=== PATIENT | male | born 1985 | race African-American/Black ===

== ENCOUNTER 2022-01-06 13:08 | Inpatient (IN) | payer BC, OTHER ==
[2022-01-06 22:41] LABS: Basophils # (A) 0.1 k/uL (0-0.2); Basophils % (A) 1 %; Eosinophils # (A) 0.2 k/uL (0-0.7); Eosinophils % (A) 1 %; HCT 51.6 % (39.0-53.0); HGB 16.4 gm/dL (13.0-17.5); Lymphocytes # (A) 3.4 k/uL (1.0-4.8); Lymphocytes % (A) 25 %; MCH 30.9 pg (25.0-35.0); MCHC 31.8 g/dL (31.0-37.0); MCV 97.4 fL (80.0-100.0); Mean Platelet Volume 9.9; Monocytes # (A) 0.7 k/uL (0-1.0); Monocytes % (A) 5 %; Neutrophils # (A) 9.3 k/uL (1.3-7.7); Neutrophils % (A) 67 %; Platelet Count 214 k/uL (150-450); RDW 13.9 % (11.5-15.5); WBC 13.9 k/uL (3.8-10.6)
[2022-01-06 22:47] LABS: Appearance,Urine Clear (Clear); Bilirubin,Urine Negative (Negative); Blood,Urine Negative (Negative); Color,Urine Light Yellow; Glucose,Urine (UA) Negative (Negative); Hyaline Casts,Urine 1 /lpf (0-2); Ketones,Urine 2+ (Negative); Leukocyte Esterase,Urine Negative (Negative); Mucus,Urine Rare /hpf; Nitrite,Urine Negative (Negative); Protein,Urine Trace (Negative); Specific Gravity,Urine 1.007 (1.001-1.035); Urobilinogen,Urine <2.0 mg/dL (<2.0); WBC,Urine 1 /hpf (0-5)
[2022-01-06 22:48] LABS: Amphetamine Screen,Urine Not Detected (NotDetected); Barbiturate Screen,Urine Not Detected (NotDetected); Benzodiazepines Screen,Urine Not Detected (NotDetected); Cocaine Screen,Urine Not Detected (NotDetected); Methadone Screen, Urine Not Detected (NotDetected); Opiate Screen,Urine Not Detected (NotDetected); Oxycodone Screen, Urine Not Detected (NotDetected); Phencyclidine Screen,Urine Not Detected (NotDetected); Tricyclic Antidepressant,Urine Not Detected (NotDetected); Urn Cannabinoid Scrn Detected (NotDetected)
[2022-01-07 00:31] LABS: ALT 23 U/L (4-49); AST 50 U/L (17-59); Acetaminophen <10.0 ug/mL; African American GFR (CKD) >90 (>60 ml/min/1.73 sqM); Albumin/Globulin Ratio 1.9; Alkaline Phosphatase 106 U/L (38-126); Anion Gap 26 mmol/L; Blood Urea Nitrogen 13 mg/dL (9-20); Calcium 9.6 mg/dL (8.4-10.2); Carbon Dioxide 12 mmol/L (22-30); Chloride 100 mmol/L (98-107); Globulin 2.6 g/dL; Glucose 105 mg/dL (74-99); Non-African American GFR(CKD) >90 (>60 ml/min/1.73 sqM); Potassium 3.6 mmol/L (3.5-5.1); Salicylate <1.0 mg/dL; Sodium 138 mmol/L (137-145); Total Bilirubin 1.1 mg/dL (0.2-1.3); Total Protein 7.6 g/dL (6.3-8.2)
[2022-01-07 00:36] LABS: Alcohol 309 mg/dL
[2022-01-07 10:27] LABS: Basophils # (A) 0.05 X 10*3/uL (0.00-0.10); Basophils % (A) 0.7 %; Eosinophils # (A) 0.12 X 10*3/uL (0.04-0.35); Eosinophils % (A) 1.7 %; HCT 46.6 % (39.6-50.0); HGB 15.5 g/dL (13.0-17.0); Immature Grans, Automated 0.4 %; Lymphocytes # (A) 1.82 X 10*3/uL (0.90-5.00); Lymphocytes % (A) 25.2 %; MCH 30.1 pg (27.0-32.0); MCHC 33.3 g/dL (32.0-37.0); MCV 90.5 fL (80.0-97.0); Monocytes # (A) 0.84 X 10*3/uL (0.20-1.00); Monocytes % (A) 11.6 %; NRBC Per 100 WBC 0 /100 WBCS (0.0-0.0); Neutrophils # (A) 4.36 X 10*3/uL (1.80-7.70); Neutrophils % (A) 60.4 %; Platelet Count 184 X 10*3/uL (140-440); RBC 5.15 X 10*6/uL (4.40-5.60); RDW 13.7 % (11.5-14.5); WBC 7.22 X 10*3/uL (4.50-10.00)
[2022-01-07 10:53] LABS: African American GFR (CKD) 131.1 (60.0-200.0); Albumin 4.7 g/dL (3.8-4.9); Albumin/Globulin Ratio 2.13 (1.60-3.17); Anion Gap 12.7 mmol/L (10.00-18.00); BUN/Creat Ratio 13.68 Ratio (12.00-20.00); Carbon Dioxide 22.9 mmol/L (20.0-27.5); Globulin 2.2 g/dL (1.6-3.3); Non-African American GFR(CKD) 113.1 (60.0-200.0); Potassium 4.7 mmol/L (3.5-5.5); Total Protein 6.8 g/dL (6.2-8.2)
[2022-01-07] MEDS ORDERED: LORazepam 2 MG/ML INJ IV PRN ×3 (14:17)
--- NOTE | 2022-01-07 14:32 | P.CN ---
Psychiatric Consult - . Consult date: 01/07/22 Consult:: 01/07/22 14:26 IDENTIFYING DATA: This patient is a 36-year-old -[place] male who currently lives with his and 2 stepchildren, they live in a duplex and he works for a [employer]. REASON FOR REFERRAL: Psychiatry was consulted for alcohol use and suicide attempt by overdose HISTORY OF PRESENT ILLNESS: The patient presented to the hospital today for alcohol intoxication with a blood alcohol level of 309 and also after a suicide attempt after an overdose on his medications. Patient's UDS was positive for THC. Patient was seen resting in his bed and agreeable to speak to public relations writer. He claims that he is feeling "sore" and appeared to be somewhat groggy. He claims that he took some of my pills" and claims that they were BuSpar. He states that he was taking them as he was recently prescribed some Walter was making him feel "loopy". He states that he called in sick to work causes of this feeling. He states that he has been feeling depressed lately which has been increasing. He states that he overdosed on approximately 80 pills in a suicide attempt which he admits to. He states that he has been trying to speak with his and family about his depression however "they don't listen". He states that he has been dealing with alcohol use claims that he got out of rehab in May and was in [place] and then came back to [place] and states that he relapsed after 1 month on alcohol. He states that he drinks about 3-4 beers a day, several shots of liquor. He claims that his last drink was yesterday. He states that he does have a history of withdrawals including tremors however denies any seizures or DTs. He states that he does have poor sleep fair appetite. He claims that he is still having some suicidal thoughts however no intent or plan . At this time patient denies any homical ideations, intent or plan. Patient denies any auditory, visual hallucinations and denies any paranoia or delusions. Patients admits to using marijuana and cigarettes daily. PAST PSYCHIATRIC HISTORY: Patient has a a history of anxiety depression and alcohol use. He claims that he was on BuSpar which was recently prescribed to him by his PCP. Patient denies any previous psychiatric hospitalizations. Patient denies any psychiatric outpatient follow-up. He states that he overdosed once in the past on medications. PAST MEDICAL HISTORY: Claims that he does have diabetes type 2.. ALLERGIES: as per EMR. CHEMICAL DEPENDENCY HISTORY: as per HPI. FAMILY PSYCHIATRIC/SUBSTANCE USE HISTORY: States that there is significant mental health issues in his family on his mother's side. SOCIAL HISTORY: Patient was born and raised in [place] however has been living in [place] for the past 20 years. He states that he completed high school. He claims that he has no kids, currently to his and lives in a house with them and HER-2 children. He states that he works for a [employer]. He denies ever going to custodial or senior care. MENTAL STATUS EXAM: General Appearance: Patient appears to be thin, stated age is alert, directable yet is vague. Patient appears to have fair hygiene and grooming wearing hospital gown with poor eye contact. Behavior: Patient is calmly lying in bed without any agitated behavior. Vague, evasive Speech: Patient's speech is fluent and nonpressured. Monotone and concrete Mood/Affect: Patient reports their mood is "depressed", affect is congruent Suicidality/Homicidality: Patient denies having any suicidal or homicidal ideation intent or plan. Perceptions: Patient denies any visual hallucinations and denies any auditory hallucinations Though content/process: There is no evidence of any delusional thought content and thought process is linear and goal-directed. [place]. Memory and concentration: AOX3, grossly intact for the purposes of this session. Can spell "WORLD" backwards Judgment and insight: poor IMPRESSIONS: Major depressive disorder, without psychotic features Alcohol use disorder Overdose on medications Cannabis use disorder Nicotine dependence PLAN: -At this time patient DOES meet criteria for inpatient psychiatric admission. -Would recommend the following medication changes/additions: Librium 25 mg 3 t imes a day scheduled for alcohol withdrawal. -CIWA protocol with PRN Ativan for alcohol withdrawal. Continue to monitor vital signs. -Continue 1:1 sitter for safety until patient is transferred to the mental health unit. -Cannot leave AMA at this time. Patient will need a petition and certification if attempting to leave AMA. -pressroom worker to provide patient with outpatient mental health/psychiatry resources for appropriate follow up upon discharge -When medically stable, patient is eligible for transfer to a psych bed when available. -Communicated plan to patient's nurse -Psychiatry will sign off at this time -Please contact with any questions.
[2022-01-07] MEDS: NICOTINE 21MG/24HR PATCH TRANSDERM SCH (15:01)
[2022-01-07] MEDS: chlordiazePOXIDE 25 MG CAP PO SCH ×2 (15:02→21:40)
[2022-01-07] MEDS ORDERED: LORazepam 1 MG/0.5 ML VIAL IV PRN ×3 (18:13→18:14)
--- NOTE | 2022-01-07 22:25 | P.HPIM ---
History of Present Illness H&P Date: 01/06/22 Chief Complaint: Acute drug overdose Patient is a 36-year-old male with a known history of hypertension, depression and daily alcohol use and smoking presented to ER due to alcohol intoxication and suicide attempt. Patient states that he took a full bottle of his medications include buspirone and trazodone. Patient states that he lost his job and is also upset with his and 2 tablets to kill himself. Patient had prior history of alcohol withdrawal symptoms and was admitted to the hospital.. Otherwise denied any complaints of nausea or vomiting. Mild epigastric discomfort. No complaints of diarrhea or constipation. No chest pain or shortness of breath. No headache or dizziness or lightheadedness. Denied any recent travel or sick contacts. Patient states that he was in the alcohol rehab program previously Few months ago. Laboratory data showed WC 13.9 hemoglobin 16.4 and platelets 214 Sodium 138 potassium 3.6 chloride 100 bicarb is 12 BUN 13 and creatinine 0.7 and blood sugar is 105 Urinalysis is negative for infection UDS is positive for marijuana and a serum alcohol level is 309 on admission Review of Systems Constitutional: Patient denies any fever or chills . no Generalized weakness. Abdomen: Patient denied any nausea or vomiting or abd. pain Cardiovascular: Patient denies any chest pain or short of breath no pal pitations. Respiratory: patient denied any cough is from production. No shortness of breath Neurologic: Patient denied any numbness or tingling headache. Musculoskeletal: Patient denies any complaints of joint swelling or deformity. Skin: Negative Psychiatric: Negative Endocrine: No heat or cold intolerance. No recent weight gain. Genitourinary: No dysuria or hematuria. All other 14 point ROS negative except the above Past Medical History Additional Past Medical History / Comment(s): pancreatitis History of Any Multi-Drug Resistant Organisms: None Reported Past Surgical History: No Surgical Hx Reported Past Psychological History: No Psychological Hx Reported Past Alcohol Use History: Daily Past Drug Use History: None Reported - Past Family History Father Family Medical History: Hypertension Medications and Allergies Home Medications Medication Instructions Recorded Confirmed Type amLODIPine [Norvasc] 5 mg PO DAILY 01/06/22 01/06/22 History busPIRone HCl [Buspar] 5 - 10 mg PO Q8H PRN 01/06/22 01/06/22 History metFORMIN HCL 500 mg PO BID 01/06/22 01/06/22 History traZODone HCL [Desyrel] 50 - 100 mg PO HS PRN 01/06/22 01/06/22 History Allergies Allergy/AdvReac Type Severity Reaction Status Date / Time No Known Allergies Allergy Verified 01/07/22 07:10 Physical Exam Vitals: Vital Signs Temp Pulse Resp BP Pulse Ox 01/06/22 21:57 98.1 F 104 H 15 137/88 97 PHYSICAL EXAMINATION: Patient is lying in the bed comfortably, no acute distress, awake alert and oriented.. HEENT: Normocephalic. Neck is supple. Pupils reactive. Nostrils clear. Oral cavity is moist. Neck reveals no JVD, carotid bruits, or thyromegaly. CHEST EXAMINATION: Trachea is central. Symmetrical expansion. Lung dai clear to auscultation and percussion. CARDIAC: Normal S1, S2 with no gallops. No murmurs ABDOMEN: Soft. Bowel sounds present. Nontender. No organomegaly. No abdominal bruits. Extremities: reveal no edema. No clubbing or cyanosis Neurologically awake, alert, oriented x3 with well-coordinated movements. No focal deficits noted Skin: No rash or skin lesions. Psychiatric: Coperative. Nonsuicidal, Musculoskeletal: No joint swelling or deformity. Normal range of motion. Results CBC & Chem 7: 01/07/22 06:19 01/07/22 06:19 Labs: Abnormal Lab Results - Last 24 Hours (Table) 01/06/22 01/06/22 Range/Units 14:30 14:30 WBC 13.9 H (3.8-10.6) k/uL Neutrophils # 9.3 H (1.3-7.7) k/uL Urine Protein Trace H (Negative) Urine Ketones 2+ H (Negative) Urine Mucus Rare H (None) /hpf U Marijuana (THC) Screen Detected H (NotDetected) Thrombosis Risk Factor Assmnt - DVT/VTE Prophylaxis DVT/VTE Prophylaxis: Pharmacologic Prophylaxis ordered Assessment and Plan Assessment: Acute suicidal attempt with overdose. Patient took a full bottle of buspirone and trazodone at home. Acute alcohol intoxication on admission Major depression Hypertension Severe alcohol abuse on daily basis History of marijuana use and ongoing nicotine addiction GI and DVT prophylaxis Plan: Patient will be continued on alcohol withdrawal protocol and IV hydration with normal saline. Continue with GI and DVT prophylaxis and monitor symptomatically. Psychiatry was consulted. Continue with one-to-one sitter and patient cannot leave AMA. Time with Patient: Greater than 30
--- NOTE | 2022-01-07 22:27 | P.PN ---
Subjective Progress Note Date: 01/07/22 Patient is a 36-year-old male with a known history of hypertension, depression and daily alcohol use and smoking presented to ER due to alcohol intoxication and suicide attempt. Patient states that he took a full bottle of his medications include buspirone and trazodone. Patient states that he lost his job and is also upset with his and 2 tablets to kill himself. Patient had prior history of alcohol withdrawal symptoms and was admitted to the hospital.. Otherwise denied any complaints of nausea or vomiting. Mild epigastric discomfort. No complaints of diarrhea or constipation. No chest pain or shortness of breath. No headache or dizziness or lightheadedness. Denied any recent travel or sick contacts. Patient states that he was in the alcohol rehab program previously Few months ago. Laboratory data showed WC 13.9 hemoglobin 16.4 and platelets 214 Sodium 138 potassium 3.6 chloride 100 bicarb is 12 BUN 13 and creatinine 0.7 and blood sugar is 105 Urinalysis is negative for infection UDS is positive for marijuana and a serum alcohol level is 309 on admission 01/07/2022 Patient is currently lying in the bed. Awake alert and oriented. Denied any suicidal ideation or homicidal ideation. No complaints of chest pain or shortness of breath. Does have some epigastric discomfort. Able to tolerate oral diet and did have a bowel meant. No cough or sputum production. Patient was seen by psychiatry and recommended inpatient psychiatric admission. Patient is being continued on alcohol withdrawal protocol and was started on Librium. Laboratory data showed WBC improved to 7.22 hemoglobin 15.5, platelets 194 Sodium 140 potassium 4.7 chloride 105 bicarb is 22.9 BUN 11 creatinine 0.8 and blood sugar is 112 AST 39 ALT 23 and alk phos 90. Current medications reviewed. Objective - Vital Signs Vital signs: Vital Signs Temp 98.1 F 01/06/22 21:57 Pulse 88 01/07/22 06:45 Resp 15 01/07/22 06:45 BP 134/76 01/07/22 06:45 Pulse Ox 97 01/07/22 06:45 FiO2 Intake & Output 01/06/22 01/07/22 01/07/22 18:59 06:59 18:59 Weight 68.039 kg - Exam PHYSICAL EXAMINATION: Patient is lying in the bed comfortably, no acute distress, awake alert and orie nted.. HEENT: Normocephalic. Neck is supple. Pupils reactive. Nostrils clear. Oral cavity is moist. Neck reveals no JVD, carotid bruits, or thyromegaly. CHEST EXAMINATION: Trachea is central. Symmetrical expansion. Lung dai clear to auscultation and percussion. CARDIAC: Normal S1, S2 with no gallops. No murmurs ABDOMEN: Soft. Bowel sounds present. Nontender. No organomegaly. No abdominal bruits. Extremities: reveal no edema. No clubbing or cyanosis Neurologically awake, alert, oriented x3 with well-coordinated movements. No focal deficits noted Skin: No rash or skin lesions. Psychiatric: Coperative. Nonsuicidal, Musculoskeletal: No joint swelling or deformity. Normal range of motion. - Labs CBC & Chem 7: 01/07/22 06:19 01/07/22 06:19 Labs: Abnormal Lab Results - Last 24 Hours (Table) 01/06/22 01/06/22 01/06/22 Range/Units 14:30 14:30 14:30 WBC 13.9 H (3.8-10.6) k/uL Neutrophils # 9.3 H (1.3-7.7) k/uL Carbon Dioxide 12 L (22-30) mmol/L Glucose 105 H (74-99) mg/dL AST (14-35) U/L Urine Protein Trace H (Negative) Urine Ketones 2+ H (Negative) Urine Mucus Rare H (None) /hpf U Marijuana (THC) Screen Detected H (NotDetected) Serum Alcohol 309 H* mg/dL 01/07/22 Range/Units 06:19 WBC (3.8-10.6) k/uL Neutrophils # (1.3-7.7) k/uL Carbon Dioxide (22-30) mmol/L Glucose 112 H (74-99) mg/dL AST 39 H (14-35) U/L Urine Protein (Negative) Urine Ketones (Negative) Urine Mucus (None) /hpf U Marijuana (THC) Screen (NotDetected) Serum Alcohol mg/dL Assessment and Plan Assessment: Acute suicidal attempt with overdose. Patient took a full bottle of buspirone and trazodone at home. Acute alcohol intoxication on admission Major depression Hypertension Severe alcohol abuse on daily basis History of marijuana use and ongoing nicotine addiction GI and DVT prophylaxis Plan: Patient will be continued on alcohol withdrawal protocol and IV hydration with normal saline. Continue with GI and DVT prophylaxis and monitor sym ptomatically. Psychiatry has seen the patient and recommended inpatient psychiatric admission.. Continue with one-to-one sitter and patient cannot leave AMA. Patient is medically stable at this time. Time with Patient: Greater than 30
[2022-01-07] MEDS ORDERED: SODIUM CHLORIDE 0.9% 1,000 ML IV SCH (22:30)
[2022-01-07] MEDS: HEPARIN SODIUM,PORCINE/PF 5,000 UNIT/0.5 ML SYRINGE SQ SCH (23:59)
[2022-01-08] MEDS: FAMOTIDINE 20 MG TAB PO SCH ×2 (00:01→08:41)
[2022-01-08] MEDS ORDERED: BENZOCAINE/MENTHOL LOZENG 1 EACH LOZENGE MUCOUS MEM PRN (00:17)
[2022-01-08] MEDS ORDERED: ACETAMINOPHEN TAB 325 MG TAB PO PRN (00:20)
[2022-01-08] MEDS: HEPARIN SODIUM,PORCINE/PF 5,000 UNIT/0.5 ML SYRINGE SQ SCH (08:41)
[2022-01-08] MEDS: chlordiazePOXIDE 25 MG CAP PO SCH (08:41)
[2022-01-08] MEDS: NICOTINE 21MG/24HR PATCH TRANSDERM SCH (08:41)
[2022-01-08 10:31] LABS: Basophils # (A) 0.06 X 10*3/uL (0.00-0.10); Eosinophils # (A) 0.14 X 10*3/uL (0.04-0.35); Eosinophils % (A) 2.3 %; HCT 47.2 % (39.6-50.0); HGB 15.3 g/dL (13.0-17.0); Immature Grans, Automated 0.2 %; Lymphocytes # (A) 2.24 X 10*3/uL (0.90-5.00); Lymphocytes % (A) 36.2 %; MCH 30.2 pg (27.0-32.0); MCHC 32.4 g/dL (32.0-37.0); MCV 93.3 fL (80.0-97.0); Mean Platelet Volume 12.2 fL (9.5-12.2); Monocytes # (A) 0.71 X 10*3/uL (0.20-1.00); Monocytes % (A) 11.5 %; NRBC Per 100 WBC 0 /100 WBCS (0.0-0.0); Neutrophils # (A) 3.03 X 10*3/uL (1.80-7.70); Neutrophils % (A) 48.8 %; Platelet Count 141 X 10*3/uL (140-440); RBC 5.06 X 10*6/uL (4.40-5.60); RDW 13.6 % (11.5-14.5); WBC 6.19 X 10*3/uL (4.50-10.00)
[2022-01-08 10:53] LABS: African American GFR (CKD) 141.1 (60.0-200.0); Albumin 4.2 g/dL (3.8-4.9); Albumin/Globulin Ratio 2.07 (1.60-3.17); BUN/Creat Ratio 13.38 Ratio (12.00-20.00); Calcium 9.3 mg/dL (8.7-10.3); Carbon Dioxide 23.6 mmol/L (20.0-27.5); Non-African American GFR(CKD) 121.7 (60.0-200.0); Potassium 3.7 mmol/L (3.5-5.5); Total Bilirubin 0.9 mg/dL (0.30-1.20); Total Protein 6.3 g/dL (6.2-8.2)
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
[2022-01-08 15:48] VITALS: BP 123/80; PULSE 72; RESP 16; TEMP 98.9
== END 2022-01-08 16:22 | DRG 918 ==
LOC: EC 13:08 → 5NMEDONC 15:39 → EC 20:10 → 5NMEDONC 01-07 02:36 → 4SSUR 01-07 14:20
PROVIDERS: ADMIT Internal Medicine; ATTEND Internal Medicine
DX: T43.592A Poisoning by other antipsychotics and neuroleptics, intentional self-harm, initial encounter (principal); F10.239 Alcohol dependence with withdrawal, unspecified; F10.229 Alcohol dependence with intoxication, unspecified; T43.212A Poisoning by selective serotonin and norepinephrine reuptake inhibitors, intentional self-harm, initial encounter; Z20.822 Contact with and (suspected) exposure to COVID-19; I10 Essential (primary) hypertension; F32.9 Major depressive disorder, single episode, unspecified; Y90.8 Blood alcohol level of 240 mg/100 ml or more; Z79.84 Long term (current) use of oral hypoglycemic drugs; Z79.899 Other long term (current) drug therapy; Z56.0 Unemployment, unspecified; Y92.009 Unspecified place in unspecified non-institutional (private) residence as the place of occurrence of the external cause
CPT/HCPCS: 80053; 80143; 80179; 80306; 80320; 81003; 85025; 87635; 96374; 99285

== ENCOUNTER 2022-01-08 14:56 | Inpatient (IN) | payer BC, MEDICAID ==
[2022-01-08] MEDS ORDERED: MAGNESIUM HYDROXIDE 2,400 MG/10 ML CUP PO PRN (15:17)
[2022-01-08] MEDS ORDERED: MAG HYDROX/AL HYDROX/SIMETH 30 ML CUP PO PRN (15:17)
[2022-01-08] MEDS ORDERED: haloperidoL 5 MG TAB PO PRN (15:21)
[2022-01-08] MEDS ORDERED: HALOPERIDOL LACTATE 5 MG/ML 1 ML VIAL IM PRN (15:21)
[2022-01-08] MEDS ORDERED: LORazepam 2 MG/ML INJ IM PRN (15:21)
[2022-01-08] MEDS ORDERED: BENZOCAINE/MENTHOL LOZENG 1 EACH LOZENGE MUCOUS MEM PRN (15:23)
[2022-01-08] MEDS: chlordiazePOXIDE 25 MG CAP PO SCH ×2 (17:44→20:42)
[2022-01-08] MEDS: NICOTINE GUM (POLACRILEX) 2 MG GUM BUCCAL PRN ×2 (17:44→21:48)
[2022-01-08] MEDS: FAMOTIDINE 20 MG TAB PO SCH (20:42)
[2022-01-08] MEDS: metFORMIN 500 MG TAB PO SCH (20:42)
[2022-01-08] MEDS: LORazepam 1 MG TAB PO PRN (20:44)
[2022-01-09] MEDS: NICOTINE GUM (POLACRILEX) 2 MG GUM BUCCAL PRN ×3 (07:12→20:53)
[2022-01-09 07:35] LABS: ALT 24 U/L (4-49); AST 34 U/L (17-59); Albumin 4.5 g/dL (3.5-5.0); Alkaline Phosphatase 93 U/L (38-126); Bilirubin, Delta 0.1 mg/dL (0.0-0.2); Bilirubin,Unconjugated 0.8 mg/dL (0.0-1.1); Total Bilirubin 0.9 mg/dL (0.2-1.3); Total Protein 6.9 g/dL (6.3-8.2)
[2022-01-09] MEDS: amLODIPine 5 MG TAB PO SCH (08:08)
[2022-01-09] MEDS: chlordiazePOXIDE 25 MG CAP PO SCH ×3 (08:08→20:52)
[2022-01-09] MEDS: metFORMIN 500 MG TAB PO SCH ×2 (08:08→20:52)
[2022-01-09] MEDS: FAMOTIDINE 20 MG TAB PO SCH ×2 (08:08→20:52)
[2022-01-09] MEDS: ACETAMINOPHEN TAB 325 MG TAB PO PRN ×2 (10:47→20:53)
[2022-01-09] MEDS ORDERED: FLUoxetine HCL 10 MG CAP PO STA (11:08)
[2022-01-09 12:03] LABS: LDL Cholesterol,Calculated 85.5 mg/dL (0.0-131.0)
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
--- NOTE | 2022-01-09 13:58 | P.MDCNMH ---
History of Present Illness H&P Date: 01/09/22 This is a pleasant 36-year-old male who was recently admitted under medical services for alcohol intoxication and suicidal ideation and was being closely monitored. Patient was medically stable and cleared for transfer to inpatient psychiatric unit for further evaluation. Psychiatric services were following recommending inpatient once medically stable. Patient does have history of diabetes mellitus, hypertension, current every day smoker, admits to smoking marijuana daily and also drinks alcohol daily. Patient was being monitored and had a suicide sitter at the bedside and has been transferred to [facility] for further evaluation. Vital signs have been stable and recommend home medication resuming and patient does take metformin 500 mg twice daily and recommend Accu-Cheks before meals and at bedtime as needed. Patient encouraged to attend group meetings and has been started on medications by psychiatry. Patient also is to continue Librium taper and currently denies any symptoms of suicidal ideation or alcohol withdrawal. Review Of Systems: Constitutional: No fever, no chills, no night sweats. No weight change. No weakness, fatigue or lethargy. No daytime sleepiness. EENT: No headache. No blurred vision or double vision, no loss of vision. No loss of Hearing, no ringing in the ears, no dizziness. No nasal drainage or congestion. No epistaxis. No sore throat. Lungs: No shortness of breath, cough, no sputum production. No wheezing. Cardiovascular: No chest pain, no lower extremity edema. No palpitations. No paroxysmal nocturnal dyspnea. No orthopnea. No lightheadedness or dizziness. No syncopal episodes. Abdominal: Reports some abdominal pain at the previous Lovenox injection sites. No nausea, vomiting. No diarrhea. No constipation. No bloody or tarry stools.. No loss of appetite. Genitourinary: No dysuria, increased frequency, urgency. No urinary retention. Musculoskeletal: No myalgias. No muscle weakness, no gait dysfunction, no frequent falls. No back pain. No neck pain. Integumentary: No wounds, no lesions. No rash or pruritus. No unusual bruising. No change in hair or nails. Neurologic: No aphasia. No facial droop. No change in mentation. No head injury. No headache. No paralysis. No paresthesia. Psychiatric: No depression. No anxiety. No mood swings. Endocrine: No abnormal blood sugars. No weight change. No excessive sweating or thirst. No cold intolerance. Physical exam: Gen: This is a 36-year-old male awake, alert and oriented 3, thin built, well- nourished HEENT: Head is atraumatic, normocephalic. Pupils equal, round. Sclerae is anicteric. NECK: Supple. No JVD. No lymphadenopathy. No thyromegaly. LUNGS: Clear to auscultation. No wheezes or rhonchi. No intercostal retractions. HEART: Regular rate and rhythm. No murmur. ABDOMEN: Soft. Bowel sounds are present. No masses. No tenderness. A few small petechial pizarro from previous Lovenox injections with no tenderness on palpation EXTREMITIES: No pedal edema. No calf tenderness. NEUROLOGICAL: Patient is awake, alert and oriented x3. Cranial nerves 2 through 12 are grossly intact. Assessment: Alcohol use disorder Recent hospitalization for alcohol intoxication with suicidal ideations Continued ongoing nicotine dependence THC use Depression Hypertension Diabetes mellitus type 2 Full code Plan: Recommend to continue with current home medications including blood pressure medication and metformin and monitor vital signs every shift and Accu-Cheks before meals and at bedtime as needed Encouraged group therapy and compliance with medications Recommend outpatient follow-up with primary care provider and establish with one outpatient Encouraged alcohol and tobacco, THC cessation Recommend outpatient follow-up with [facility] and community resources with AA meetings and possible alcohol rehab once discharged The impression and plan of care has been dictated by Grace Florez, Nurse Practitioner as directed. Dr. Ilan MD I have performed a history and examination and MDM of this patient, discussed the same with the dictator, and agree with the dictator's assessment and plan as written ,documented as a scribe. Based on total visit time, I have performed more than 50% of the visit. Past Medical History Past Medical History: Diabetes Mellitus, Hypertension Additional Past Medical History / Comment(s): pancreatitis History of Any Multi-Drug Resistant Organisms: None Reported Past Surgical History: No Surgical Hx Reported Past Anesthesia/Blood Transfusion Reactions: No Reported Reaction Smoking Status: Current every day smoker - Past Family History Father Family Medical History: Hypertension Medications and Allergies Home Medications Medication Instructions Recorded Confirmed Type amLODIPine [Norvasc] 5 mg PO DAILY 01/06/22 01/08/22 History metFORMIN HCL 500 mg PO BID 01/06/22 01/08/22 History Acetaminophen Tab [Tylenol] 650 mg PO Q6HR PRN tab 01/08/22 01/08/22 Rx Benzocaine/Menthol Lozeng [Cepacol 1 each MUCOUS MEM Q4HR PRN lozenge 01/08/22 01/08/22 Rx lozenge] Famotidine [Pepcid] 20 mg PO BID tab 01/08/22 01/08/22 Rx Nicotine 21Mg/24Hr Patch [Habitrol] 1 patch TRANSDERM DAILY patch 01/08/22 01/08/22 Rx chlordiazePOXIDE HCl [Librium] 25 mg PO TID cap 01/08/22 01/08/22 Rx Allergies Allergy/AdvReac Type Severity Reaction Status Date / Time No Known Allergies Allergy Verified 01/07/22 07:10 Physical Exam Vitals: Vital Signs Temp Pulse Pulse Resp BP Pulse Ox 01/09/22 08:09 87 18 135/88 01/09/22 06:40 97.5 F L 77 16 136/92 01/08/22 20:45 91 16 155/102 01/08/22 17:36 98.3 F 88 18 120/86 98 Intake and Output 01/08/22 01/09/22 01/09/22 22:59 06:59 14:59 Other: Weight 66.3 kg Cranial Nerve Examination - Cranial Nerves Cranial Nerve I- Olfactory: Intact Cranial Nerve II- Optic: Intact Cranial Nerve III- Oculomotor: Intact Cranial Nerve IV- Trochlear: Intact Cranial Nerve V- Trigeminal: Intact Cranial Nerve - Abducens: Intact Cranial Nerve VII- Facial: Intact Cranial Nerve VIII- Auditory: Intact Cranial Nerve IX- Glossopharyngeal: Intact Cranial Nerve X- Vagus: Intact Cranial Nerve XI- Accessory: Intact Cranial Nerve XII- Hypoglossal: Intact Results Labs: Abnormal Lab Results - Last 24 Hours (Table) 01/09/22 Range/Units 07:04 HDL Cholesterol 64.70 H (40.00-60.00) mg/dL
[2022-01-09] MEDS: traZODone HCL 100 MG TAB PO SCH (20:52)
[2022-01-10] MEDS: FAMOTIDINE 20 MG TAB PO SCH ×2 (09:39→20:39)
[2022-01-10] MEDS: FLUoxetine HCL 10 MG CAP PO SCH (09:40)
[2022-01-10] MEDS: metFORMIN 500 MG TAB PO SCH ×2 (09:40→20:39)
[2022-01-10] MEDS: amLODIPine 5 MG TAB PO SCH (09:40)
[2022-01-10] MEDS: NALTREXONE HCL 50 MG TAB PO SCH (09:40)
[2022-01-10] MEDS: busPIRone HCl 5 MG TAB PO SCH ×2 (09:40→20:39)
[2022-01-10] MEDS: chlordiazePOXIDE 25 MG CAP PO SCH ×3 (09:41→20:39)
[2022-01-10] MEDS: NICOTINE GUM (POLACRILEX) 2 MG GUM BUCCAL PRN ×3 (09:57→19:38)
[2022-01-10 16:18] VITALS: BMI 21.6
--- NOTE | 2022-01-10 19:38 | P.PN ---
Progress Note - Text Progress Note Date: 01/10/22 Interval history: Patient was seen in his room where he was resting and was directable and agreeable to speak with sheet writer. He reports stable mood, denies alcohol withdrawal symptoms. At this time, patient denies any suicidal or homicidal ideation, intent or plan. Denies any auditory or visual hallucinations. Patient denies any side effects from the medications and has been compliant with meds. Mental status exam: General Appearance: Patient appears to be stated age, adequate hygiene. Behavior: Patient is calm without any agitated behavior. Speech: Patient's speech is fluent and non-pressured. Mood/Affect: Patient reports their mood is "alright", affect is congruent and constricted. Suicidality/Homicidality: Patient denies having any homicidal ideation intent or plan. He denies any suicidal ideation, intent or plan. Perceptions: Patient denies any visual hallucinations and denies any auditory hallucinations. Though content/process: There is no evidence of any delusional thought content and thought process is linear and goal-directed. Memory and concentration: AOX3, grossly intact for the purposes of this session. Judgment and insight: improving mildly Assessment/Plan: Continue with current diagnosis. Patient continues to meet criteria for inpatient psychiatric admission for symptom stabilization and safety. Patient will be maintained on current psychotropic medication regimen for today. Will plan to taper down his Librium to 25 mg BID starting tomorrow if he continues to stabilize. Monitor for medication compliance and for any psychotropic medication side effects. Will continue to monitor ongoing response to treatment. Encouraged participation in milieu.
[2022-01-10] MEDS: traZODone HCL 100 MG TAB PO SCH (20:39)
[2022-01-11] MEDS: amLODIPine 5 MG TAB PO SCH (08:30)
[2022-01-11] MEDS: FLUoxetine HCL 10 MG CAP PO SCH (08:30)
[2022-01-11] MEDS: busPIRone HCl 5 MG TAB PO SCH ×2 (08:30→20:38)
[2022-01-11] MEDS: NALTREXONE HCL 50 MG TAB PO SCH (08:30)
[2022-01-11] MEDS: metFORMIN 500 MG TAB PO SCH ×2 (08:30→20:38)
[2022-01-11] MEDS: FAMOTIDINE 20 MG TAB PO SCH ×2 (08:30→20:38)
[2022-01-11] MEDS: chlordiazePOXIDE 25 MG CAP PO SCH (08:30)
[2022-01-11] MEDS: NICOTINE GUM (POLACRILEX) 2 MG GUM BUCCAL PRN (08:32)
[2022-01-11] MEDS: ACETAMINOPHEN TAB 325 MG TAB PO PRN (10:57)
--- NOTE | 2022-01-11 15:47 | P.PN ---
Progress Note - Text Progress Note Date: 01/11/22 Interval history: Patient was seen in the hallway and was directable and agreeable to speak with script writer. He reports stable mood, denies alcohol withdrawal symptoms. Vital signs reviewed and are stable today. At this time, patient denies any suicidal or homicidal ideation, intent or plan. Denies any auditory or visual hallucinations. Patient denies any side effects from the medications and has been compliant with meds. Mental status exam: General Appearance: Patient appears to be stated age, adequate hygiene. Behavior: Patient is calm without any agitated behavior. Speech: Patient's speech is fluent and non-pressured. Mood/Affect: Patient reports their mood is "alright", affect is congruent and constricted. Suicidality/Homicidality: Patient denies having any homicidal ideation intent or plan. He denies any suicidal ideation, intent or plan. Perceptions: Patient denies any visual hallucinations and denies any auditory hallucinations. Though content/process: There is no evidence of any delusional thought content and thought process is linear and goal-directed. Memory and concentration: AOX3, grossly intact for the purposes of this session. Judgment and insight: improving mildly Vital Signs (72 hours) 01/08/22 01/08/22 01/09/22 17:36 20:45 06:40 Temperature 98.3 F 97.5 F L Pulse Rate [ 88 Pulse Oximetery ] Pulse Rate [ 91 77 Right] Respiratory 18 16 16 Rate Blood Pressure [Left Arm] Blood Pressure 120/86 155/102 136/92 [Right Arm] O2 Sat by Pulse 98 Oximetry 01/09/22 01/10/22 01/10/22 08:09 09:37 16:26 Temperature 97.8 F Pulse Rate [ Pulse Oximetery ] Pulse Rate [ 87 82 80 Right] Respiratory 18 16 Rate Blood Pressure 115/72 114/74 [Left Arm] Blood Pressure 135/88 [Right Arm] O2 Sat by Pulse 99 Oximetry 01/11/22 06:47 Temperature 98 F Pulse Rate [ Pulse Oximetery ] Pulse Rate [ 56 L Right] Respiratory 14 Rate Blood Pressure 113/68 [Left Arm] Blood Pressure [Right Arm] O2 Sat by Pulse Oximetry Assessment/Plan: Continue with current diagnosis. Patient continues to meet criteria for inpatient psychiatric admission for symptom stabilization and safety. Will plan to taper down his Librium to 10 mg BID for alcohol withdrawal starting tonight, with plan to discontinue. Monitor for medication compliance and for any psychotropic medication side effects. Will continue to monitor ongoing response to treatment. Encouraged participation in milieu.
[2022-01-11] MEDS: NICOTINE 14MG/24HR PATCH TRANSDERM SCH (17:41)
[2022-01-11] MEDS: traZODone HCL 100 MG TAB PO SCH (20:38)
[2022-01-11] MEDS: LORazepam 1 MG TAB PO PRN (22:05)
[2022-01-12] MEDS: NICOTINE 14MG/24HR PATCH TRANSDERM SCH (08:36)
[2022-01-12] MEDS: NALTREXONE HCL 50 MG TAB PO SCH (08:37)
[2022-01-12] MEDS: FLUoxetine HCL 10 MG CAP PO SCH (08:37)
[2022-01-12] MEDS: amLODIPine 5 MG TAB PO SCH (08:37)
[2022-01-12] MEDS: busPIRone HCl 5 MG TAB PO SCH ×2 (08:37→20:08)
[2022-01-12] MEDS: metFORMIN 500 MG TAB PO SCH ×2 (08:37→20:08)
[2022-01-12] MEDS: FAMOTIDINE 20 MG TAB PO SCH ×2 (08:37→20:08)
--- NOTE | 2022-01-12 11:14 | P.PN ---
Progress Note - Text Progress Note Date: 01/12/22 Interval History: Patient was seen wandering the hallways and was directable and agreeable to speak with loan underwriter in the office. Currently, the patient reports that he is feeling significantly better in regards to his mood. He is currently denying any suicidal or homicidal ideation, intention, and/or plan. He is denying any auditory or visual hallucinations. He reports no paranoia or other delusions. The patient has been adherent with his medication is not endorsing any significant side effects at this time. He is interested in going to substance abuse rehabilitation for his alcohol use disorder. He has been attending groups with the high-level participation. He remains future and goal oriented. He does report that his anxiety has significantly improved. He continues to feel some anxiety however denies any panic attacks recently. Reports no issues regarding sleep or his appetite. Mental Status Exam: General Appearance: Patient appears to be stated age is alert, directable, and cooperative. Behavior: Patient is calmly seated without any agitated behavior. Speech: Patient's speech is fluent and nonpressured. Mood/Affect: Mood is improving mildly, affect is congruent and constricted. Suicidality/Homicidality: Patient denies having any suicidal or homicidal ideation intent or plan. Perceptions: Patient denies any visual hallucinations and denies any auditory hallucinations Though content/process: There is no evidence of any delusional thought content and thought process is linear and goal-directed. Memory and concentration: AOX3, grossly intact for the purposes of this session Judgment and insight: Improving mildly Vital Signs Temp 97.8 F 01/12/22 06:28 Pulse 62 01/12/22 06:28 Resp 14 01/12/22 06:28 BP 110/77 01/12/22 06:28 Pulse Ox 99 01/10/22 09:37 FiO2 Assessment Major depressive disorder, recurrent, severe, without psychotic features Panic disorder Alcohol use disorder Tobacco use disorder Plan: -Patient continues to meet criteria for inpatient psychiatric admission for symptom stabilization and safety. Patient has signed adult voluntary form and medication consent and was placed in patient's chart. -Medications: Taper Librium to 10 mg by mouth twice a day to be discontinued tomorrow morning Continue Prozac 30 mg by mouth daily for depression/anxiety/PTSD Continue BuSpar 15 mg by mouth twice a day for anxiety Continue trazodone 100 mg by mouth at bedtime for insomnia Continue naltrexone 50 mg by mouth daily for alcohol cessation -When necessary Ativan and Haldol for agitation/aggression. -NRT - nicotine patch and nicorette gum -SW on board for discharge planning. Encouraged the patient to participate in milieu.
[2022-01-12] MEDS ORDERED: traZODone HCL 100 MG TAB PO SCH (21:00)
[2022-01-13 06:37] VITALS: TEMP 97.3
[2022-01-13 08:27] VITALS: BP 109/70; PULSE 91; RESP 16
[2022-01-13] MEDS: amLODIPine 5 MG TAB PO SCH (08:29)
[2022-01-13] MEDS: NALTREXONE HCL 50 MG TAB PO SCH (08:29)
[2022-01-13] MEDS: FAMOTIDINE 20 MG TAB PO SCH (08:29)
[2022-01-13] MEDS: FLUoxetine HCL 10 MG CAP PO SCH (08:29)
[2022-01-13] MEDS: metFORMIN 500 MG TAB PO SCH (08:29)
[2022-01-13] MEDS: busPIRone HCl 5 MG TAB PO SCH (08:29)
[2022-01-13] MEDS: NICOTINE 14MG/24HR PATCH TRANSDERM SCH (08:29)
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
== END 2022-01-13 14:08 | disposition home or self-care (01) | DRG 885 ==
LOC: 3MHU 16:28
PROVIDERS: ADMIT Psychiatry & Neurology Psychiatry; ATTEND Psychiatry & Neurology Psychiatry
DX: F33.2 Major depressive disorder, recurrent severe without psychotic features (principal); F41.0 Panic disorder [episodic paroxysmal anxiety]; F17.210 Nicotine dependence, cigarettes, uncomplicated; F10.129 Alcohol abuse with intoxication, unspecified; G47.00 Insomnia, unspecified; Z62.810 Personal history of physical and sexual abuse in childhood; Z79.899 Other long term (current) drug therapy
CPT/HCPCS: 80061; 80076; 83036; 84443

== ENCOUNTER 2022-05-19 05:17 | Inpatient (IN) | payer OTHER ==
[2022-05-19] MEDS ORDERED: PANTOPRAZOLE 40 MG/10 ML VIAL IVP STA (05:38)
[2022-05-19] MEDS ORDERED: SODIUM CHLORIDE 0.9% 1,000 ML IV STA (05:38)
[2022-05-19] MEDS ORDERED: ONDANSETRON 4 MG/2 ML VIAL IVP STA (05:38)
[2022-05-19] MEDS ORDERED: MORPHINE SULFATE 4 MG/ML SYRINGE IVP STA (05:39)
--- NOTE | 2022-05-19 05:43 | ED ---
General Adult HPI - General Source: patient, RN notes reviewed, old records reviewed Mode of arrival: ambulatory Limitations: no limitations <Jesus Blakely - Last Filed: 05/19/22 07:12> <Oscar Magaña - Last Filed: 05/19/22 08:40> - General Chief complaint: Abdominal Pain Stated complaint: Abdominal pain, blood in stool Time Seen by Provider: 05/19/22 05:39 - History of Present Illness Initial comments: Patient is a 36-year-old male with past medical history of diabetes on metformin who presents emergency Department with right lower quadrant abdominal pain that started 2 days ago. States it has gotten worse. It is associated with some episodes of diarrhea, and one time he believes he may have seen some blood in it. No recurrent bleeding in the stool. Also has felt nauseous but no episodes of emesis. States the pain has been isolated to the right lower quadrant. Denies any dysuria or hematuria. Denies any penile discharge. Denies any history of STDs. Denies any chest pain or shortness of breath. Denies any testicular pain. Denies any fevers, chills, cough. Presents for further eval uation of a concern for his right lower quadrant abdominal pain. No known palliative or provocative factors.Patient does have a history of pancreatitis, however he states this pain is different as it is primarily in the epigastric region when he has pancreatitis and this pain is in the right lower quadrant. No known history of intra-abdominal surgeries. (Jesus Blakely) - Related Data Home Medications Medication Instructions Recorded Confirmed amLODIPine [Norvasc] 5 mg PO DAILY 01/06/22 01/08/22 metFORMIN HCL 500 mg PO BID 01/06/22 01/08/22 Previous Rx's Medication Instructions Recorded Acetaminophen Tab [Tylenol] 650 mg PO Q6HR PRN tab 01/08/22 Benzocaine/Menthol Lozeng [Cepacol 1 each MUCOUS MEM Q4HR PRN lozenge 01/08/22 lozenge] Famotidine [Pepcid] 20 mg PO BID tab 01/08/22 FLUoxetine HCL [PROzac] 30 mg PO DAILY 30 Days cap 01/13/22 Naltrexone HCl [Revia] 50 mg PO DAILY 30 Days tab 01/13/22 Nicotine Gum (Polacrilex) 2 mg BUCCAL Q4HR PRN 30 Days 01/13/22 [Nicorette] pieceofgum busPIRone HCl [Buspar] 15 mg PO BID 30 Days tab 01/13/22 traZODone HCL [Desyrel] 150 mg PO HS 30 Days tab 01/13/22 Allergies Allergy/AdvReac Type Severity Reaction Status Date / Time No Known Allergies Allergy Verified 05/19/22 05:22 Review of Systems ROS Other: All systems not noted in ROS Statement are negative. <Jesus Blakely - Last Filed: 05/19/22 07:12> ROS Other: All systems not noted in ROS Statement are negative. <Oscar Magaña - Last Filed: 05/19/22 08:40> ROS Statement: Those systems with pertinent positive or pertinent negative responses have been documented in the HPI. Review of Systems: CONST: Denies fever EYES: Denies blurry vision ENT: Denies nasal congestion C/V: Denies Chest pain RESP: Denies shortness of breath GI: Endorses abdominal pain : Denies dysuria SKIN: Denies rash. MSK: Denies joint pain. NEURO: Denies headache (Jesus Blakely) Past Medical History Past Medical History: Diabetes Mellitus, Hypertension Additional Past Medical History / Comment(s): pancreatitis History of Any Multi-Drug Resistant Organisms: None Reported Past Surgical History: No Surgical Hx Reported Past Anesthesia/Blood Transfusion Reactions: No Reported Reaction Past Psychological History: No Psychological Hx Reported Smoking Status: Current every day smoker - Past Family History Father Family Medical History: Hypertension <Jesus Blakely - Last Filed: 05/19/22 07:12> General Exam Limitations: no limitations <Jesus Blakely - Last Filed: 05/19/22 07:12> - General Exam Comments Initial Comments: General: Appears in no acute distress. HEAD: Normal with no signs of head trauma. EYES: PERRLA, EOMI, conjunctiva normal, no discharge. ENT: Hearing grossly intact, normal oropharynx. RESPIRATORY: Clear breath sounds bilaterally. No wheezes, rales, or rhonchi. C/V: Regular rate and rhythm. S1 and S2 auscultated, no edema, peripheral pulses 2+ and intact throughout ABD: Abdomen soft, nondistended. Tender to palpation in the right lower quadrant. No guarding. No peritoneal signs. No rebound tenderness. EXT: Normal range of motion, no obvious deformity SKIN: No rashes or lesions observed on exposed skin. NEURO: Alert and oriented 4. (Jesus Blakely) Course Vital Signs 05/19/22 05/19/22 05:22 07:46 Temperature 98.3 F 98.2 F Pulse Rate 101 H 67 Respiratory 16 20 Rate Blood Pressure 145/60 145/84 O2 Sat by Pulse 99 97 Oximetry Medical Decision Making - Lab Data Result diagrams: 05/19/22 06:24 05/19/22 06:24 <Jesus Blakely - Last Filed: 05/19/22 07:12> - Lab Data Result diagrams: 05/19/22 06:24 05/19/22 06:24 <Oscar Magaña - Last Filed: 05/19/22 08:40> - Medical Decision Making Was pt. sent in by a medical professional or institution ([facility], [facility], urgent care, hospital, or senior living...) When possible be specific @ -No Did you speak to anyone other than the patient for history (EMS, parent, family, police, friend...)? What history was obtained from this source @ -No Did you review nursing and triage notes (agree or disagree)? Why? @ -I reviewed and agree with nursing and triage notes, except the patient with one episode of a small amount of possible blood in his stool. No repeat episodes. Were old charts reviewed (outside hosp., previous admission, EMS record, old EKG, old radiological studies, urgent care reports/EKG's, senior living records)? Report findings @ -Old charts were reviewed by myself. Differential Diagnosis (chest pain, altered mental status, abdominal pain women, abdominal pain men, vaginal bleeding, weakness, fever, dyspnea, syncope, headache, dizziness, GI bleed, back pain, seizure, CVA, palpatations, mental health)? @ -Differential Abdominal Pain Men: Appendicitis, cholecystitis, diverticulosis, ischemic bowel, pancreatitis, hepatitis, UTI, gastroenteritis, AAA, incarcerated hernia, bowel obstruction, constipation, inflammatory bowel, hepatitis, peptic ulcer disease, splenic infarction, perforated viscus, testicular torsion, this is not meant to be an all-inclusive list EKG interpreted by me (3pts min.). @ -Not done X-rays interpreted by me (1pt min.). @ -None done CT interpreted by me (1pt min.). @ -CT imaging pending. U/S interpreted by me (1pt. min.). @ -None done What testing was considered but not performed or refused? (CT, X-rays, U/S, labs)? Why? @ -None What meds were considered but not given or refused? Why? @ -None Did you discuss the management of the patient with other professionals (professionals i.e. Dr., PA, TRIPOLER, lab, RT, psych nurse, social media community manager, commercial credit analyst, teacher, morals squad police officer, case technician)? Give summary @ -No Was smoking cessation discussed for >3mins.? @ -No Was critical care preformed (if so, how long)? @ -No Were there social determinants of health that impacted care today? How? (Homelessness, low income, unemployed, alcoholism, drug addiction, transportation, low edu. Level, literacy, decrease access to med. care, [facility], rehab)? @ -No Was there de-escalation of care discussed even if they declined (Discuss DNR or withdrawal of care, Hospice)? DNR status @ -No What co-morbidities impacted this encounter? (DM, HTN, Smoking, COPD, CAD, Cancer, CVA, ARF, Chemo, Hep., AIDS, mental health diagnosis, sleep apnea, morbid obesity)? @ -None Was patient admitted / discharged? Hospital course, mention meds given and route, prescriptions, significant lab abnormalities, going to OR and other pertinent info. @ -Based on the patient's presentation and physical exam, I'm concerned for intra-abdominal process for the patient's current symptoms. This includes possible appendicitis. We therefore we'll obtain abdominal laboratory studies, and a CT on pelvis with contrast. He'll be symptomatically treated with IV fluids, IV Zofran, IV morphine and Protonix. Vital signs within acceptable limits. Patient was in agreement with this plan. Laboratory studies remarkable for mild anemia with a hemoglobin of 12.3, lipase is slightly elevated to 336. Alcohol negative. CT imaging still pending at this time. At this time it is the end of my shift. Patient was signed out to the [facility] emergency Department physician Dr. Magaña. (Jesus Blakely) Was patient admitted / discharged? Hospital course, mention meds given and route, prescriptions, significant lab abnormalities, going to OR and other pertinent info. @ -Patient was signed out to me by Dr. Blakely. I went back and reevaluate the patient he did have supra umbilical tenderness. Patient's CAT scan was done and interpreted by myself and it showed some calcifications in the patient's uterus consistent with chronic pancreatitis. There is also some stranding around the pancreas as well as the omentum with some enlarged lymph nodes. This could be consistent with panic colitis but patient stated that he went home he probably would start drinking again. I spoke with Dr. Griffiths he agreed to admit the patient admitted the patient wrote admitting orders I consulted surgery Undiagnosed new problem with uncertain prognosis? @ -No Drug Therapy requiring intensive monitoring for toxicity (Heparin, Nitro, Insulin, Cardizem)? @ -No Were any procedures done? @ -No Diagnosis/symptom? @ -Pancreatitis Acute, or Chronic, or Acute on Chronic? @ -Acute on chronic Uncomplicated (without systemic symptoms) or Complicated (systemic symptoms)? @ -Uncomplicated Side effects of treatment? @ -No Exacerbation, Progression, or Severe Exacerbation? @ -No Poses a threat to life or bodily function? How? (Chest pain, [place], MA, pneumonia, PE, COPD, DKA, ARF, appy, cholecystitis, CVA, Diverticulitis, Homicidal, Suicidal, threat to staff... and all critical care pts) @ -No Diagnosis/symptom? @ -Alcohol abuse Acute, or Chronic, or Acute on Chronic? @ -Chronic Uncomplicated (without systemic symptoms) or Complicated (systemic symptoms)? @ -default Side effects of treatment? @ -none Exacerbation, Progression, or Severe Exacerbation] @ -no Poses a threat to life or bodily function? @ -no (Oscar Magaña) - Lab Data Lab Results 05/19/22 05/19/22 05/19/22 Range/Units 06:24 06:24 06:24 WBC 6.7 (3.8-10.6) k/uL RBC 4.67 (4.30-5.90) m/uL Hgb 12.3 L (13.0-17.5) gm/dL Hct 38.3 L (39.0-53.0) % MCV 81.9 (80.0-100.0) fL MCH 26.3 (25.0-35.0) pg MCHC 32.2 (31.0-37.0) g/dL RDW 13.6 (11.5-15.5) % Plt Count 266 (150-450) k/uL MPV 8.5 Neutrophils % 58 % Lymphocytes % 34 % Monocytes % 5 % Eosinophils % 2 % Basophils % 1 % Neutrophils # 3.9 (1.3-7.7) k/uL Lymphocytes # 2.3 (1.0-4.8) k/uL Monocytes # 0.3 (0-1.0) k/uL Eosinophils # 0.2 (0-0.7) k/uL Basophils # 0.1 (0-0.2) k/uL PT 11.2 (9.0-12.0) sec INR 1.1 (<1.2) APTT 22.8 (22.0-30.0) sec Sodium 141 (137-145) mmol/L Potassium 3.9 (3.5-5.1) mmol/L Chloride 104 (98-107) mmol/L Carbon Dioxide 31 H (22-30) mmol/L Anion Gap 6 mmol/L BUN 11 (9-20) mg/dL Creatinine 0.76 (0.66-1.25) mg/dL Est GFR (CKD-EPI)AfAm >90 (>60 ml/min/1.73 sqM) Est GFR (CKD-EPI)NonAf >90 (>60 ml/min/1.73 sqM) Glucose 126 H (74-99) mg/dL Calcium 9.7 (8.4-10.2) mg/dL Total Bilirubin 0.9 (0.2-1.3) mg/dL AST 38 (17-59) U/L ALT 27 (4-49) U/L Alkaline Phosphatase 99 (38-126) U/L Total Protein 7.5 (6.3-8.2) g/dL Albumin 4.5 (3.5-5.0) g/dL Amylase 46 (30-110) U/L Lipase 336 H (23-300) U/L Urine Color Urine Appearance (Clear) Urine pH (5.0-8.0) Ur Specific [place] (1.001-1.035) Urine Protein (Negative) Urine Glucose (UA) (Negative) Urine Ketones (Negative) Urine Blood (Negative) Urine Nitrite (Negative) Urine Bilirubin (Negative) Urine Urobilinogen (<2.0) mg/dL Ur Leukocyte Esterase (Negative) Urine RBC (0-5) /hpf Urine WBC (0-5) /hpf Ur Squamous Epith Cells (0-4) /hpf Urine Mucus (None) /hpf Serum Alcohol <10 mg/dL 05/19/22 Range/Units 07:49 WBC (3.8-10.6) k/uL RBC (4.30-5.90) m/uL Hgb (13.0-17.5) gm/dL Hct (39.0-53.0) % MCV (80.0-100.0) fL MCH (25.0-35.0) pg MCHC (31.0-37.0) g/dL RDW (11.5-15.5) % Plt Count (150-450) k/uL MPV Neutrophils % % Lymphocytes % % Monocytes % % Eosinophils % % Basophils % % Neutrophils # (1.3-7.7) k/uL Lymphocytes # (1.0-4.8) k/uL Monocytes # (0-1.0) k/uL Eosinophils # (0-0.7) k/uL Basophils # (0-0.2) k/uL PT (9.0-12.0) sec INR (<1.2) APTT (22.0-30.0) sec Sodium (137-145) mmol/L Potassium (3.5-5.1) mmol/L Chloride (98-107) mmol/L Carbon Dioxide (22-30) mmol/L Anion Gap mmol/L BUN (9-20) mg/dL Creatinine (0.66-1.25) mg/dL Est GFR (CKD-EPI)AfAm (>60 ml/min/1.73 sqM) Est GFR (CKD-EPI)NonAf (>60 ml/min/1.73 sqM) Glucose (74-99) mg/dL Calcium (8.4-10.2) mg/dL Total Bilirubin (0.2-1.3) mg/dL AST (17-59) U/L ALT (4-49) U/L Alkaline Phosphatase (38-126) U/L Total Protein (6.3-8.2) g/dL Albumin (3.5-5.0) g/dL Amylase (30-110) U/L Lipase (23-300) U/L Urine Color Yellow Urine Appearance Clear (Clear) Urine pH 6.0 (5.0-8.0) Ur Specific [place] >1.050 H (1.001-1.035) Urine Protein 1+ H (Negative) Urine Glucose (UA) Negative (Negative) Urine Ketones 2+ H (Negative) Urine Blood Negative (Negative) Urine Nitrite Negative (Negative) Urine Bilirubin 1+ H (Negative) Urine Urobilinogen 3.0 (<2.0) mg/dL Ur Leukocyte Esterase Moderate H (Negative) Urine RBC 2 (0-5) /hpf Urine WBC 11 H (0-5) /hpf Ur Squamous Epith Cells 1 (0-4) /hpf Urine Mucus Occasional H (None) /hpf Serum Alcohol mg/dL Disposition <Jesus Blakely - Last Filed: 05/19/22 07:12> Time of Disposition: 08:30 <Oscar Magaña - Last Filed: 05/19/22 08:40> Clinical Impression: Pancreatitis, Alcohol abuse Disposition: ADMITTED IP TO THIS HOSP Referrals: None,Stated [Primary Care Provider] - 1-2 days
[2022-05-19 06:31] LABS: Basophils # (A) 0.1 k/uL (0-0.2); Basophils % (A) 1 %; Eosinophils # (A) 0.2 k/uL (0-0.7); Eosinophils % (A) 2 %; HCT 38.3 % (39.0-53.0); HGB 12.3 gm/dL (13.0-17.5); Lymphocytes # (A) 2.3 k/uL (1.0-4.8); Lymphocytes % (A) 34 %; MCH 26.3 pg (25.0-35.0); MCHC 32.2 g/dL (31.0-37.0); MCV 81.9 fL (80.0-100.0); Mean Platelet Volume 8.5; Monocytes # (A) 0.3 k/uL (0-1.0); Monocytes % (A) 5 %; Neutrophils # (A) 3.9 k/uL (1.3-7.7); Neutrophils % (A) 58 %; Platelet Count 266 k/uL (150-450); RBC 4.67 m/uL (4.30-5.90); RDW 13.6 % (11.5-15.5); WBC 6.7 k/uL (3.8-10.6)
[2022-05-19 06:41] LABS: Chloride 104 mmol/L (98-107); INR 1.1 (<1.2); Partial Thromboplastin Time 22.8 sec (22.0-30.0); Prothrombin Time 11.2 sec (9.0-12.0)
[2022-05-19 06:43] LABS: ALT 27 U/L (4-49); AST 38 U/L (17-59); African American GFR (CKD) >90 (>60 ml/min/1.73 sqM); Albumin 4.5 g/dL (3.5-5.0); Alcohol <10 mg/dL; Alkaline Phosphatase 99 U/L (38-126); Amylase 46 U/L (30-110); Anion Gap 6 mmol/L; Blood Urea Nitrogen 11 mg/dL (9-20); Calcium 9.7 mg/dL (8.4-10.2); Carbon Dioxide 31 mmol/L (22-30); Glucose 126 mg/dL (74-99); Lipase 336 U/L (23-300); Non-African American GFR(CKD) >90 (>60 ml/min/1.73 sqM); Potassium 3.9 mmol/L (3.5-5.1); Sodium 141 mmol/L (137-145); Total Bilirubin 0.9 mg/dL (0.2-1.3); Total Protein 7.5 g/dL (6.3-8.2)
[2022-05-19 08:05] LABS: Appearance,Urine Clear (Clear); Bilirubin,Urine 1+ (Negative); Blood,Urine Negative (Negative); Color,Urine Yellow; Glucose,Urine (UA) Negative (Negative); Ketones,Urine 2+ (Negative); Leukocyte Esterase,Urine Moderate (Negative); Mucus,Urine Occasional /hpf; Nitrite,Urine Negative (Negative); Protein,Urine 1+ (Negative); RBC,Urine 2 /hpf (0-5); Specific Gravity,Urine >1.050 (1.001-1.035); Squamous Epithelial Cell,Urine 1 /hpf (0-4); WBC,Urine 11 /hpf (0-5)
--- NOTE | 2022-05-19 08:16 | CT ---
EXAMINATION TYPE: CT abdomen pelvis w con DATE OF EXAM: 05/19/2022 COMPARISON: 05/28/2015 HISTORY: 36 year-old male right lower quadrant abdominal pain TECHNIQUE: Contiguous axial scanning of the abdomen and pelvis following administration of 100 ml Iso efe 300 IV contrast. Delayed images through the kidneys and coronal/sagittal reconstructions perform ed. CT DLP: 981 mGycm Automated exposure control for dose reduction was used. FINDINGS: The heart is normal size without pericardial effusion. Lung bases clear without pleural effusion. There appears to be diffuse gastric fold thickening. No focal liver lesion or biliary ductal dilatation. Portal venous system is patent. Interval atrophy are frontally of the pancreatic tail and body with a calcification suggesting chroni c pancreatitis. Additional calcifications at the inferior pancreatic head. No discrete pancreatic mas s is identified. Changes have developed compared to the 2016 exam. Ongoing or recurrent retroperitoneal and mid abdominal mesenteric fat stranding and borderline to mil dly enlarged lymph nodes measuring up to 1.2 cm. Gallbladder, adrenal glands, kidneys, and spleen within normal limits. No dilated small bowel, free fluid, or free air. Some prominent left periaortic lymph nodes measuring up to 1.2 cm remain unchanged. Normal appendix. There is mild stool burden. No pericolonic inflammatory change. There is moderate circumferential bladder wall thickening. No abnormal fluid collection in the pelvis or pelvic lymphadenopathy. Bones: No osseous destructive process. IMPRESSION: 1. COMPARED TO THE 2016 EXAM, THERE HAS BEEN INTERVAL DEVELOPMENT OF ATROPHY PARTICULARLY ALONG TH E TAIL AND ADJACENT BODY OF THE PANCREAS. PUNCTATE CALCIFICATIONS HAVE ALSO DEVELOPED SUGGESTING HOME FURNISHINGS SALES REPRESENTATIVE VIVIEN PANCREATITIS. GIVEN THAT THE ATROPHY IS PREFERENTIAL INVOLVING THE TAIL, RECOMMEND FOLLOW-UP WITH CA-19-9/TUMOR MARKERS AND CONSIDERATION TO EUS to exclude a subtle mass obstructing the pancreatic d uct. No obvious enhancing mass on the current CT. 2. Peripancreatic, retroperitoneal, and mid mesenteric fat stranding with associated borderline to mi ldly enlarged lymph nodes measuring up to 1.2 cm. Correlate with amylase and lipase to exclude acute interstitial pancreatitis. As some of these changes were also present in 2016 and there is involvemen t of some mesenteric nodes, also correlate to exclude mesenteric panniculitis. Follow-up after succes sful treatment to assess for clearance. If the nodes persist, ongoing surveillance may be indicated t o exclude indolent lymphoma. 3. Diffuse gastric fold thickening may be seen with gastritis. 4. Moderate circumferential wall thickening of the bladder may be seen with chronic bladder wall hype rtrophy or cystitis. Clinically correlate.
[2022-05-19] MEDS ORDERED: SODIUM CHLORIDE 0.9% 1,000 ML IV ONE (08:40)
[2022-05-19] MEDS ORDERED: ONDANSETRON 4 MG/2 ML VIAL IVP PRN (08:41)
[2022-05-19] MEDS ORDERED: THIAMINE 100 MG/ML 2 ML VIAL IM STA (08:42)
[2022-05-19] MEDS ORDERED: LORazepam 2 MG/ML INJ IV PRN (08:42)
[2022-05-19] MEDS ORDERED: NICOTINE GUM (POLACRILEX) 2 MG GUM BUCCAL PRN (09:30)
--- NOTE | 2022-05-19 16:35 | P.GSCN ---
History of Present Illness Consult date: 05/19/22 History of present illness: CHIEF COMPLAINT: Abdominal pain HISTORY OF PRESENT ILLNESS: This is a 36-year-old male who presented with abdominal pain in the right lower quadrant that started on Wednesday. He also had diarrhea. Patient does have a known history of pancreatitis and alcohol abuse. Computed tomography scan had shown evidence of chronic pancreatitis. Lipase minimally elevated at 336. Patient reports that the pain does not feel similar to his pancreatitis. Patient seen and examined with Dr. oliver and at that time patient reported no abdominal pain. Reports feeling hungry and wanting to eat. Patient denies any urinary symptoms. Patient states that he has been binge drinking this past week. Patient seen and examined with Dr. oliver PAST MEDICAL HISTORY: See below PAST SURGICAL HISTORY: See below MEDICATIONS: See below ALLERGIES: See below SOCIAL HISTORY: No illicit drug use. REVIEW OF SYSTEMS: CONSTITUTIONAL: Denies fever or chills. HEENT: Denies blurred vision, vision changes, or eye pain. Denies hemoptysis CARDIOVASCULAR: Denies chest pain or pressure. RESPIRATORY: No shortness of breath. GASTROINTESTINAL: See HPI for pertinent findings HEMATOLOGIC: Denies bleeding disorders. GENITOURINARY: Denies any blood in urine or increased urinary frequency. SKIN: Denies pruitis. Denies rash. PHYSICAL EXAM: VITAL SIGNS: Reviewed GENERAL: Well-developed in no acute distress. HEENT: No sclera icterus. Extraocular movements grossly intact. Moist buccal mucosa. Head is atraumatic, normocephalic. No nasal drainage. ABDOMEN: Soft. Nondistended. Mild tenderness right upper quadrant NEUROLOGIC: Alert and oriented. Cranial nerves II through XII grossly intact. LABORATORY DATA: WBC 6.7 hgb 12.3 platelets 266 INR 1.1 Sodium 141 potassium 3.9 creatinine 0.76 LFTs normal Lipase 336 EtOH less than 10 IMAGING: Computed tomography scan abdomen and pelvis showing development of atrophy particularly along the tail and adjacent body pancreas calcifications of also developed suggesting chronic pancreatitis. Given that the atrophy is peripheral involving the tail recommend follow-up CA 19 9 tumor marker and consideration of US.. Pancreatic, retroperitoneal and mid mesenteric fat stranding associated borderline to mildly enlarged lymph nodes measuring up to 1.2 cm. Diffuse gastric fold thickening may be seen with gastritis. Moderate circumferential wall thickening of the bladder seen with chronic bladder wall hypertrophy cystitis. Normal appendix ASSESSMENT: 1. Abdominal pain improved 2. Chronic pancreatitis 3. Alcohol abuse PLAN: -Advance diet to full liquids and then as tolerated -Continue supportive care -No surgical intervention planned -Educated patient on alcohol abstinence -Continue IV fluids Thank you for this consultation Physician Lapel Stitcher note has been reviewed by physician. Signing provider agrees with the documented findings, assessment, and plan of care. Past Medical History Past Medical History: Diabetes Mellitus, Hypertension Additional Past Medical History / Comment(s): pancreatitis History of Any Multi-Drug Resistant Organisms: None Reported Past Surgical History: No Surgical Hx Reported Past Anesthesia/Blood Transfusion Reactions: No Reported Reaction Past Psychological History: No Psychological Hx Reported Smoking Status: Current every day smoker - Past Family History Father Family Medical History: Hypertension Medications and Allergies Home Medications Medication Instructions Recorded Confirmed Type metFORMIN HCL 500 mg PO BID 01/06/22 05/19/22 History Allergies Allergy/AdvReac Type Severity Reaction Status Date / Time No Known Allergies Allergy Verified 05/19/22 11:03 Surgical - Exam Vital Signs Temp Pulse Resp BP Pulse Ox 98.3 F 101 H 16 145/60 99 05/19/22 05:22 05/19/22 05:22 05/19/22 05:22 05/19/22 05:22 05/19/22 05:22 Results - Labs 05/19/22 06:24 05/19/22 06:24 Abnormal Lab Results - Last 24 Hours (Table) 05/19/22 05/19/22 05/19/22 Range/Units 06:24 06:24 07:49 Hgb 12.3 L (13.0-17.5) gm/dL Hct 38.3 L (39.0-53.0) % Carbon Dioxide 31 H (22-30) mmol/L Glucose 126 H (74-99) mg/dL Lipase 336 H (23-300) U/L Ur Specific [place] >1.050 H (1.001-1.035) Urine Protein 1+ H (Negative) Urine Ketones 2+ H (Negative) Urine Bilirubin 1+ H (Negative) Ur Leukocyte Esterase Moderate H (Negative) Urine WBC 11 H (0-5) /hpf Urine Mucus Occasional H (None) /hpf Diabetes panel 05/19/22 Range/Units 06:24 Sodium 141 (137-145) mmol/L Potassium 3.9 (3.5-5.1) mmol/L Chloride 104 (98-107) mmol/L Carbon Dioxide 31 H (22-30) mmol/L BUN 11 (9-20) mg/dL Creatinine 0.76 (0.66-1.25) mg/dL Glucose 126 H (74-99) mg/dL Calcium 9.7 (8.4-10.2) mg/dL AST 38 (17-59) U/L ALT 27 (4-49) U/L Alkaline Phosphatase 99 (38-126) U/L Total Protein 7.5 (6.3-8.2) g/dL Albumin 4.5 (3.5-5.0) g/dL Calcium panel 05/19/22 Range/Units 06:24 Calcium 9.7 (8.4-10.2) mg/dL Albumin 4.5 (3.5-5.0) g/dL Pituitary panel 05/19/22 Range/Units 06:24 Sodium 141 (137-145) mmol/L Potassium 3.9 (3.5-5.1) mmol/L Chloride 104 (98-107) mmol/L Carbon Dioxide 31 H (22-30) mmol/L BUN 11 (9-20) mg/dL Creatinine 0.76 (0.66-1.25) mg/dL Glucose 126 H (74-99) mg/dL Calcium 9.7 (8.4-10.2) mg/dL Adrenal panel 05/19/22 Range/Units 06:24 Sodium 141 (137-145) mmol/L Potassium 3.9 (3.5-5.1) mmol/L Chloride 104 (98-107) mmol/L Carbon Dioxide 31 H (22-30) mmol/L BUN 11 (9-20) mg/dL Creatinine 0.76 (0.66-1.25) mg/dL Glucose 126 H (74-99) mg/dL Calcium 9.7 (8.4-10.2) mg/dL Total Bilirubin 0.9 (0.2-1.3) mg/dL AST 38 (17-59) U/L ALT 27 (4-49) U/L Alkaline Phosphatase 99 (38-126) U/L Total Protein 7.5 (6.3-8.2) g/dL Albumin 4.5 (3.5-5.0) g/dL
[2022-05-19] MEDS: metFORMIN 500 MG TAB PO SCH (17:51)
[2022-05-19 17:59] LABS: Glucose,Whole Blood 155 mg/dL (70-110)
[2022-05-19] MEDS: NICOTINE 14MG/24HR PATCH TRANSDERM SCH (18:24)
[2022-05-19] MEDS ORDERED: busPIRone HCl 5 MG TAB PO SCH (21:00)
[2022-05-19] MEDS ORDERED: FAMOTIDINE 20 MG TAB PO SCH (21:00)
[2022-05-19] MEDS ORDERED: traZODone HCL 50 MG TAB PO SCH (21:00)
[2022-05-19] MEDS ORDERED: MORPHINE SULFATE 2 MG/ML SYRINGE IVP PRN ×2 (21:46)
--- NOTE | 2022-05-20 01:25 | HP ---
HISTORY AND PHYSICAL HISTORY OF PRESENT ILLNESS: A 36-year-old white male came in with abdominal pain, some diarrhea, history of pancreatitis, and alcohol abuse. CAT scan shows chronic pancreatitis. Lipase is 38, minimal abdominal pain, . No dysuria, frequency, urgency, or hesitancy. PAST MEDICAL HISTORY: See old chart. SURGERIES: See below. MEDICATIONS: See below. ALLERGIES: Negative. SOCIAL HISTORY: No drug use. REVIEW OF SYSTEMS: A 14-point review of systems negative for mild tremors for alcohol withdrawal, otherwise negative. PHYSICAL EXAMINATION: VITAL SIGNS: Stable, afebrile. CARDIOVASCULAR: S1, S2. LUNGS: Clear. GI: Soft. HEMATOLOGY: Negative for Hom[place]. PSYCH: Fair mood and affect. NEUROLOGIC: Mild tremor. LABORATORY DATA: White count 6.7, hemoglobin 12.3, platelets 266. INR 1.1. Sodium 141, potassium 3.9, creatinine 0.76. Lipase 336. Alcohol less than 10. CAT scan shows possible chronic pancreatitis, mildly enlarged lymph nodes, gastritis, thickening of the bladder, possible cystitis. ASSESSMENT AND PLAN: 1. Abdominal pain, improved. 2. Chronic pancreatitis. 3. Alcohol abuse, alcohol withdrawal protocol, CIWA protocol. Advance solid to full liquids. No surgical intervention. Prognosis guarded. Guston consultation. MMODL / IJN: [id number] /
[2022-05-20] MEDS: NICOTINE 14MG/24HR PATCH TRANSDERM SCH (08:43)
[2022-05-20] MEDS ORDERED: NALTREXONE HCL 50 MG TAB PO SCH (09:00)
[2022-05-20] MEDS ORDERED: amLODIPine 5 MG TAB PO SCH (09:00)
[2022-05-20] MEDS ORDERED: THIAMINE 100 MG TAB PO SCH (09:00)
[2022-05-20] MEDS ORDERED: FLUoxetine HCL 10 MG CAP PO SCH (09:00)
[2022-05-20] MEDS: metFORMIN 500 MG TAB PO SCH (09:05)
--- NOTE | 2022-05-20 13:34 | P.PN ---
Subjective Progress Note Date: 05/20/22 CHIEF COMPLAINT: Abdominal pain HISTORY OF PRESENT ILLNESS: Patient reports abdominal pain is improving. He did tolerate a small amount of the full liquid diet this morning. He did have some mild discomfort in the epigastric area. Denies any nausea or vomiting. He has been up and ambulating. Afebrile. Patient seen and examined with Dr. oliver PHYSICAL EXAM: VITAL SIGNS: Reviewed. GENERAL: Well-developed in no acute distress. HEENT: No sclera icterus. Extraocular movements grossly intact. Moist buccal mucosa. Head is atraumatic, normocephalic. ABDOMEN: Soft. Nondistended. Nontender. NEUROLOGIC: Alert and oriented. Cranial nerves II through XII grossly intact. ASSESSMENT: 1. Abdominal pain 2. Chronic pancreatitis 3. Alcohol abuse PLAN: -Advance diet as tolerated -No surgical intervention planned -Educated patient to refrain from alcohol use -Continue supportive care -Patient follow up with Dr. oliver outpatient Physician Principal Trainer note has been reviewed by physician. Signing provider agrees with the documented findings, assessment, and plan of care. Objective - Vital Signs Vital signs: Vital Signs Temp 97.8 F 05/20/22 08:00 Pulse 66 05/20/22 08:00 Resp 18 05/20/22 08:00 BP 124/80 05/20/22 08:00 Pulse Ox 99 05/20/22 08:00 FiO2 Intake & Output 05/19/22 05/20/22 05/20/22 18:59 06:59 18:59 Intake Total 235 120 Balance 235 120 Weight 79.379 kg Intake: Oral 235 120 Other: Voiding Method Toilet Toilet # Voids 2 2 - Labs CBC & Chem 7: 05/19/22 06:24 05/19/22 06:24 Labs: Abnormal Lab Results - Last 24 Hours (Table) 05/19/22 Range/Units 17:56 POC Glucose (mg/dL) 155 H (70-110) mg/dL Microbiology - Last 24 Hours (Table) 05/19/22 07:49 Urine Culture - Final Urine,Voided
[2022-05-20 15:56] VITALS: BP 166/88; PULSE 60; RESP 16; TEMP 98.2
== END 2022-05-20 17:25 | disposition home or self-care (01) | DRG 440 ==
LOC: EC 05:17 → 5NMEDONC 08:40 → 6NMEDSUR 14:16
PROVIDERS: ADMIT Family Medicine; ATTEND Family Medicine
PROC: HZ2ZZZZ Detoxification Services for Substance Abuse Treatment (ICD-10-PCS; principal; 2022-05-19)
DX: K86.1 Other chronic pancreatitis (principal); F10.20 Alcohol dependence, uncomplicated; E11.9 Type 2 diabetes mellitus without complications; I10 Essential (primary) hypertension; D64.9 Anemia, unspecified; F17.290 Nicotine dependence, other tobacco product, uncomplicated; R19.7 Diarrhea, unspecified; F17.210 Nicotine dependence, cigarettes, uncomplicated; R11.2 Nausea with vomiting, unspecified; Z79.84 Long term (current) use of oral hypoglycemic drugs; Z79.899 Other long term (current) drug therapy; Y90.0 Blood alcohol level of less than 20 mg/100 ml
CPT/HCPCS: 36415; 74177; 80053; 80320; 81001; 82150; 83690; 85025; 85610; 85730; 87086; 96361; 96372; 96374; 96375; 99285

== ENCOUNTER 2023-04-04 08:13 | Observation (INO) | payer BC, OTHER ==
--- NOTE | 2023-04-04 08:54 | XR ---
EXAMINATION TYPE: XR KUB DATE OF EXAM: 04/04/2023 COMPARISON: 05/28/2015 INDICATION: Abdomen TECHNIQUE: Single view abdomen FINDINGS: There is a normal bowel gas pattern. No free air is under the diaphragm. No suspicious differential a ir-fluid levels are evident. Psoas margins are normal. No organomegaly is present. There is calcification in the left upper quadrant. Consider chronic pancreatitis IMPRESSION: 1. Left upper quadrant calcifications suggest underlying chronic pancreatitis
[2023-04-04 09:28] LABS: Basophils # (A) 0.1 k/uL (0-0.2); Basophils % (A) 1 %; Eosinophils # (A) 0.2 k/uL (0-0.7); Eosinophils % (A) 2 %; HGB 14.6 gm/dL (13.0-17.5); Lymphocytes # (A) 2.4 k/uL (1.0-4.8); Lymphocytes % (A) 32 %; MCH 29.1 pg (25.0-35.0); MCHC 33.1 g/dL (31.0-37.0); MCV 87.9 fL (80.0-100.0); Mean Platelet Volume 8.7; Monocytes # (A) 0.4 k/uL (0-1.0); Monocytes % (A) 5 %; Neutrophils # (A) 4.4 k/uL (1.3-7.7); Neutrophils % (A) 58 %; Platelet Count 177 k/uL (150-450); RDW 14.4 % (11.5-15.5); WBC 7.5 k/uL (3.8-10.6)
[2023-04-04] MEDS ORDERED: HYDROmorphone 0.5 MG/0.5 ML SYRINGE IVP STA (10:04)
[2023-04-04] MEDS ORDERED: ONDANSETRON 4 MG/2 ML VIAL IVP STA (10:04)
[2023-04-04] MEDS ORDERED: SODIUM CHLORIDE 0.9% 1,000 ML IV ONE ×2 (10:04→11:49)
[2023-04-04] MEDS ORDERED: SODIUM CHLORIDE 0.9% 500 ML 500 ML IV ONE (10:04)
--- NOTE | 2023-04-04 10:06 | ED ---
General Adult HPI - General Chief complaint: Abdominal Pain Stated complaint: Abd Pain Time Seen by Provider: 04/04/23 09:45 Source: patient, RN notes reviewed, old records reviewed Mode of arrival: ambulatory Limitations: no limitations - History of Present Illness Initial comments: This is a 37-year-old male who presents emergency Department with a past medical history significant for alcoholism and pancreatitis. Patient states he had his last drink on Wednesday night at a [employer]. Patient states since then he's been nauseous and having epigastric abdominal pain. Patient states this is consistent with his pancreatitis in the past. Patient denies any back pain. Patient is a difficult breathing shortness of breath. Patient denies any chest pain. Patient denies any actual vomiting. Patient denies diarrhea. Patient denies any other pain in the abdomen except in the epigastric region - Related Data Home Medications Medication Instructions Recorded Confirmed Metoclopramide [Reglan] 10 mg PO TID PRN 04/04/23 04/04/23 Pantoprazole Sodium [Protonix] 40 mg PO DAILY 04/04/23 04/04/23 Sucralfate [Carafate] 1 gm PO ACHS 04/04/23 04/04/23 Previous Rx's Medication Instructions Recorded Famotidine [Pepcid] 20 mg PO BID 14 Days #28 tab 06/29/22 amLODIPine [Norvasc] 5 mg PO DAILY 14 Days #14 tab 06/29/22 metFORMIN HCL [Glucophage] 500 mg PO BID-W/MEALS 14 Days #28 06/29/22 tab Folic Acid 1 mg PO DAILY #30 tablet 04/06/23 Nicotine 14Mg/24Hr Patch [Habitrol] 1 patch TRANSDERM DAILY patch 04/06/23 Thiamine [Vitamin B-1] 100 mg PO DAILY tab 04/06/23 Allergies Allergy/AdvReac Type Severity Reaction Status Date / Time No Known Allergies Allergy Verified 04/04/23 13:06 Review of Systems ROS Statement: Those systems with pertinent positive or pertinent negative responses have been documented in the HPI. ROS Other: All systems not noted in ROS Statement are negative. Past Medical History Past Medical History: Diabetes Mellitus, Hypertension Additional Past Medical History / Comment(s): pancreatitis History of Any Multi-Drug Resistant Organisms: None Reported Past Surgical History: No Surgical Hx Reported Past Anesthesia/Blood Transfusion Reactions: No Reported Reaction Past Psychological History: Depression Smoking Status: Current every day smoker Past Alcohol Use History: Daily, Heavy Past Drug Use History: Marijuana - Past Family History Father Family Medical History: Hypertension General Exam - General Exam Comments Initial Comments: GENERAL: Patient is well-developed and well-nourished. Patient is nontoxic and well- hydrated and is in mild distress. ENT: Neck is soft and supple. No significant lymphadenopathy is noted. Oropharynx is clear. Moist mucous membranes. Neck has full range of motion without eliciting any pain. EYES: The sclera were anicteric and conjunctiva were pink and moist. Extraocular movements were intact and pupils were equal round and reactive to light. Eyelids were unremarkable. PULMONARY: Unlabored respirations. Good breath sounds bilaterally. No audible rales rhonchi or wheezing was noted. CARDIOVASCULAR: There is a regular rate and rhythm without any murmurs gallops or rubs. ABDOMEN: Epigastric abdominal pain SKIN: Skin is clear with no lesions or rashes and otherwise unremarkable. NEUROLOGIC: Patient is alert and oriented x3. Cranial nerves II through XII are grossly intact. Motor and sensory are also intact. Normal speech, volume and content. Symmetrical smile. MUSCULOSKELETAL: Normal extremities with adequate strength and full range of motion. LYMPHATICS: No significant lymphadenopathy is noted PSYCHIATRIC: Normal psychiatric evaluation. Limitations: no limitations Course Vital Signs 04/04/23 04/04/23 04/04/23 08:21 11:27 15:45 Temperature 98 F 98.4 F 98.3 F Pulse Rate 86 77 Pulse Rate [ 92 Pulse Oximetery ] Respiratory 18 18 16 Rate Blood Pressure 191/82 137/93 Blood Pressure 150/98 [Right Arm] O2 Sat by Pulse 100 98 97 Oximetry 04/04/23 20:00 Temperature 99.2 F Pulse Rate Pulse Rate [ 54 L Pulse Oximetery ] Respiratory 16 Rate Blood Pressure Blood Pressure 163/98 [Right Arm] O2 Sat by Pulse 99 Oximetry Medical Decision Making - Medical Decision Making Was pt. sent in by a medical professional or institution (, PA, EMERGENCY MEDICINE NURSE PRACTITIONER, urgent care, hospital, or [place] health care facility...) When possible be specific @ -No Did you speak to anyone other than the patient for history (EMS, parent, family, police, friend...)? What history was obtained from this source @ -No Did you review nursing and triage notes (agree or disagree)? Why? @ -I reviewed and agree with nursing and triage notes Were old charts reviewed (outside hosp., previous admission, EMS record, old EKG, old radiological studies, urgent care reports/EKG's, [place] health care facility records)? Report findings @ -I reviewed prior charts in prior lab work on this patient Differential Diagnosis (chest pain, altered mental status, abdominal pain women, abdominal pain men, vaginal bleeding, weakness, fever, dyspnea, syncope, headache, dizziness, GI bleed, back pain, seizure, CVA, palpatations, mental health, musculoskeletal)? @ -Differential Abdominal Pain Men: Appendicitis, cholecystitis, diverticulosis, ischemic bowel, pancreatitis, hepat itis, UTI, gastroenteritis, AAA, incarcerated hernia, bowel obstruction, constipation, inflammatory bowel, hepatitis, peptic ulcer disease, splenic infarction, perforated viscus, testicular torsion, this is not meant to be an all-inclusive list EKG interpreted by me (3pts min.). @ -As above X-rays interpreted by me (1pt min.). @ -KUB shows no acute abnormality CT interpreted by me (1pt min.). @ -None done U/S interpreted by me (1pt. min.). @ -None done What testing was considered but not performed or refused? (CT, X-rays, U/S, labs)? Why? @ -None What meds were considered but not given or refused? Why? @ -None Did you discuss the management of the patient with other professionals (professionals i.e. , PA, EMERGENCY MEDICINE NURSE PRACTITIONER, lab, RT, psych nurse, hospice social worker, field services analyst, teacher, juvenile correctional officer, caseworker protective services)? Give summary @ -No Was smoking cessation discussed for >3mins.? @ -No Was critical care preformed (if so, how long)? @ -No Were there social determinants of health that impacted care today? How? (Homelessness, low income, unemployed, alcoholism, drug addiction, transportation, low edu. Level, literacy, decrease access to med. care, [facility], rehab)? @ -No Was there de-escalation of care discussed even if they declined (Discuss DNR or withdrawal of care, Hospice)? DNR status @ -No What co-morbidities impacted this encounter? (DM, HTN, Smoking, COPD, CAD, C ancer, CVA, ARF, Chemo, Hep., AIDS, mental health diagnosis, sleep apnea, morbid obesity)? @ -None Was patient admitted / discharged? Hospital course, mention meds given and route, prescriptions, significant lab abnormalities, going to OR and other pertinent info. @ -I went back in the room to reevaluate the patient after he had nausea meds fluid and pain medication he was still having quite a bit of epigastric abdominal pain. Patient's lipase was mildly elevated. Because the patient still having pain and nausea he will be admitted to the [facility] hospitalist whom I spoke with. Undiagnosed new problem with uncertain prognosis? @ -No Drug Therapy requiring intensive monitoring for toxicity (Heparin, Nitro, Insulin, Cardizem)? @ -No Were any procedures done? @ -No Diagnosis/symptom? @ -Pancreatitis Acute, or Chronic, or Acute on Chronic? @ -Acute on chronic Uncomplicated (without systemic symptoms) or Complicated (systemic symptoms)? @ -Complicated Side effects of treatment? @ -No Exacerbation, Progression, or Severe Exacerbation? @ -No Poses a threat to life or bodily function? How? (Chest pain, [place], [place], pneumonia, PE, COPD, DKA, ARF, appy, cholecystitis, CVA, Diverticulitis, Homicidal, Suici rocio, threat to staff... and all critical care pts) @ -Yes this can worsen and cause more more organ dysfunction - Lab Data Result diagrams: 04/05/23 06:36 04/05/23 06:36 Lab Results 04/04/23 04/04/23 04/04/23 Range/Units 08:25 08:25 11:26 WBC 7.5 (3.8-10.6) k/uL RBC 5.00 (4.30-5.90) m/uL Hgb 14.6 (13.0-17.5) gm/dL Hct 44.0 (39.0-53.0) % MCV 87.9 (80.0-100.0) fL MCH 29.1 (25.0-35.0) pg MCHC 33.1 (31.0-37.0) g/dL RDW 14.4 (11.5-15.5) % Plt Count 177 (150-450) k/uL MPV 8.7 Neutrophils % 58 % Lymphocytes % 32 % Monocytes % 5 % Eosinophils % 2 % Basophils % 1 % Neutrophils # 4.4 (1.3-7.7) k/uL Lymphocytes # 2.4 (1.0-4.8) k/uL Monocytes # 0.4 (0-1.0) k/uL Eosinophils # 0.2 (0-0.7) k/uL Basophils # 0.1 (0-0.2) k/uL Sodium 140 (137-145) mmol/L Potassium 4.1 (3.5-5.1) mmol/L Chloride 105 (98-107) mmol/L Carbon Dioxide 20 L (22-30) mmol/L Anion Gap 15 mmol/L BUN 11 (9-20) mg/dL Creatinine 0.63 L (0.66-1.25) mg/dL Est GFR (CKD-EPI)AfAm >90 (>60 ml/min/1.73 sqM) Est GFR (CKD-EPI)NonAf >90 (>60 ml/min/1.73 sqM) Glucose 109 H (74-99) mg/dL Calcium 10.3 H (8.4-10.2) mg/dL Total Bilirubin 1.3 (0.2-1.3) mg/dL AST 67 H (17-59) U/L ALT 49 (4-49) U/L Alkaline Phosphatase 134 H (38-126) U/L Total Protein 7.7 (6.3-8.2) g/dL Albumin 4.7 (3.5-5.0) g/dL Amylase 69 (30-110) U/L Lipase 478 H (23-300) U/L Serum Alcohol <10 mg/dL Disposition Clinical Impression: Pancreatitis Disposition: ADMITTED IP TO THIS HOSP Condition: Stable Time of Disposition: 11:49
[2023-04-04 10:48] LABS: ALT 49 U/L (4-49); AST 67 U/L (17-59); African American GFR (CKD) >90 (>60 ml/min/1.73 sqM); Albumin 4.7 g/dL (3.5-5.0); Alkaline Phosphatase 134 U/L (38-126); Amylase 69 U/L (30-110); Anion Gap 15 mmol/L; Blood Urea Nitrogen 11 mg/dL (9-20); Calcium 10.3 mg/dL (8.4-10.2); Carbon Dioxide 20 mmol/L (22-30); Chloride 105 mmol/L (98-107); Glucose 109 mg/dL (74-99); Lipase 478 U/L (23-300); Non-African American GFR(CKD) >90 (>60 ml/min/1.73 sqM); Potassium 4.1 mmol/L (3.5-5.1); Sodium 140 mmol/L (137-145); Total Bilirubin 1.3 mg/dL (0.2-1.3); Total Protein 7.7 g/dL (6.3-8.2)
[2023-04-04] MEDS ORDERED: ONDANSETRON 4 MG/2 ML VIAL IVP PRN (11:50)
[2023-04-04] MEDS ORDERED: ACETAMINOPHEN TAB 325 MG TAB PO PRN (12:02)
[2023-04-04] MEDS ORDERED: HYDROmorphone 1 MG/ML 1 ML SYRINGE IVP PRN (12:02)
[2023-04-04] MEDS ORDERED: NALOXONE 0.4 MG/ML 1 ML VIAL IV PRN (12:02)
[2023-04-04] MEDS ORDERED: traMADol 50 MG TAB PO PRN (12:02)
[2023-04-04] MEDS: SODIUM CHLORIDE 0.9% 1,000 ML IV SCH ×2 (12:18→20:56)
[2023-04-04] MEDS ORDERED: DEXTROSE 50% SYRINGE 50 ML IVP PRN ×2 (12:57)
[2023-04-04] MEDS ORDERED: LORazepam 1 MG TAB PO PRN (12:58)
[2023-04-04] MEDS ORDERED: LORazepam 0.5 MG TAB PO PRN (12:58)
[2023-04-04] MEDS ORDERED: LORazepam 2 MG/ML INJ IV PRN ×2 (12:58)
[2023-04-04 17:47] LABS: Glucose,Whole Blood 158 mg/dL (70-110)
[2023-04-04] MEDS: INSULIN ASPART (NovoLOG) 100 UNIT/ML VIAL SQ SCH ×2 (18:04→20:56)
[2023-04-04 18:37] LABS: ALT 40 U/L (4-49); AST 47 U/L (17-59); African American GFR (CKD) >90 (>60 ml/min/1.73 sqM); Anion Gap 11 mmol/L; Blood Urea Nitrogen 9 mg/dL (9-20); Calcium 9.5 mg/dL (8.4-10.2); Carbon Dioxide 24 mmol/L (22-30); Chloride 103 mmol/L (98-107); Glucose 98 mg/dL (74-99); Magnesium 1.6 mg/dL (1.6-2.3); Non-African American GFR(CKD) >90 (>60 ml/min/1.73 sqM); Phosphorus 2.9 mg/dL (2.5-4.5); Sodium 138 mmol/L (137-145)
[2023-04-04 20:57] LABS: Glucose,Whole Blood 103 mg/dL (70-110)
[2023-04-04] MEDS: HYDROmorphone 0.5 MG/0.5 ML SYRINGE IVP PRN (20:57)
[2023-04-05] MEDS ORDERED: METOCLOPRAMIDE 10 MG TAB PO PRN (01:47)
[2023-04-05] MEDS: SODIUM CHLORIDE 0.9% 1,000 ML IV SCH ×3 (02:53→17:56)
[2023-04-05 06:07] LABS: Glucose,Whole Blood 96 mg/dL (70-110)
[2023-04-05] MEDS: INSULIN ASPART (NovoLOG) 100 UNIT/ML VIAL SQ SCH ×4 (06:07→20:55)
[2023-04-05] MEDS: PANTOPRAZOLE 40 MG TABLET PO SCH (06:07)
[2023-04-05] MEDS: SUCRALFATE 1 GM TAB PO SCH ×4 (06:07→19:58)
[2023-04-05] MEDS: NICOTINE 14MG/24HR PATCH TRANSDERM SCH (09:24)
[2023-04-05] MEDS: FAMOTIDINE 20 MG TAB PO SCH ×2 (09:25→19:58)
[2023-04-05] MEDS: THIAMINE 100 MG TAB PO SCH (09:25)
[2023-04-05] MEDS: amLODIPine 5 MG TAB PO SCH (09:25)
[2023-04-05 10:42] LABS: Basophils # (A) 0.05 X 10*3/uL (0.00-0.10); Basophils % (A) 0.7 %; Eosinophils # (A) 0.17 X 10*3/uL (0.04-0.35); Eosinophils % (A) 2.3 %; HCT 41.4 % (39.6-50.0); HGB 13.4 g/dL (13.0-17.0); Lymphocytes # (A) 2.43 X 10*3/uL (0.90-5.00); Lymphocytes % (A) 32.3 %; MCH 27.7 pg (27.0-32.0); MCHC 32.4 g/dL (32.0-37.0); MCV 85.5 FL (80.0-97.0); Mean Platelet Volume 11.6 FL (9.5-12.2); Monocytes # (A) 0.76 X 10*3/uL (0.20-1.00); Monocytes % (A) 10.1 %; NRBC Per 100 WBC 0 X 10*3/uL (0.00-0.01); Neutrophils # (A) 4.09 X 10*3/uL (1.80-7.70); Neutrophils % (A) 54.3 %; Platelet Count 165 X 10*3/uL (140-440); RBC 4.84 X 10*6/uL (4.40-5.60); RDW 14.4 % (11.5-14.5); WBC 7.52 X 10*3/uL (4.50-10.00)
[2023-04-05 11:06] LABS: ALT 37 U/L (10-49); AST 38 U/L (14-35); Alkaline Phosphatase 96 U/L (41-126); BUN/Creat Ratio 9.71 Ratio (12.00-20.00); Blood Urea Nitrogen 6.8 mg/dL (9.0-27.0); Calcium 9.4 mg/dL (8.7-10.3); Carbon Dioxide 22.6 mmol/L (21.6-31.8); Chloride 104 mmol/L (96-109); Glucose 97 mg/dL (70-110); Lipase 31 U/L (14-60); Potassium 3.7 mmol/L (3.5-5.5); Sodium 140 mmol/L (135-145)
[2023-04-05 11:30] LABS: Glucose,Whole Blood 105 mg/dL (70-110)
[2023-04-05] MEDS: HYDROmorphone 0.5 MG/0.5 ML SYRINGE IVP PRN ×2 (12:38→21:41)
[2023-04-05 15:36] VITALS: RESP 16
--- NOTE | 2023-04-05 17:07 | P.HPIM ---
History of Present Illness H&P Date: 04/06/23 Chief Complaint: Abdominal pain This is a 37-year-old gentleman with past medical history significant for alcohol abuse, nicotine dependence, pancreatitislast episode nearly 1 year ago, anxiety, depression and multiple other medical issues. States he had gone to a [employer] party on Wednesday night, consumed a significant amount of alcohol. He developed nausea, epigastric abdominal pain and proceeded to the ER. Denies syncope. Denies chest pain, palpitations or shortness of breath. Reports he drinks four tall boys plus hard liquor daily. afebrile, normal WBC. Serum alcohol less than 10.Lipase 478 on admission, IV fluid hydration initiated, pancreatic enzymes improving. Renal function stable. Recent CIWA score zero. Review of Systems ROS Statement: Those systems with pertinent positive or pertinent negative responses have been documented in the HPI. ROS Other: All systems not noted in ROS Statement are negative. Past Medical History Past Medical History: Diabetes Mellitus, Hypertension Additional Past Medical History / Comment(s): pancreatitis History of Any Multi-Drug Resistant Organisms: None Reported Past Surgical History: No Surgical Hx Reported Past Anesthesia/Blood Transfusion Reactions: No Reported Reaction Past Psychological History: Depression Smoking Status: Current every day smoker Past Alcohol Use History: Daily, Heavy Additional Past Alcohol Use History / Comment(s): Reports he drinks 5 tall (25oz) beers daily, and maybe a "couple shots" Past Drug Use History: Marijuana Additional Drug Use History / Comment(s): states he smokes marijuana "every other day." - Past Family History Father Family Medical History: Hypertension Medications and Allergies Home Medications Medication Instructions Recorded Confirmed Type Famotidine [Pepcid] 20 mg PO BID 14 Days #28 tab 06/29/22 04/04/23 Rx amLODIPine [Norvasc] 5 mg PO DAILY 14 Days #14 tab 06/29/22 04/04/23 Rx metFORMIN HCL [Glucophage] 500 mg PO BID-W/MEALS 14 Days #28 06/29/22 04/04/23 Rx tab Metoclopramide [Reglan] 10 mg PO TID PRN 04/04/23 04/04/23 History Pantoprazole Sodium [Protonix] 40 mg PO DAILY 04/04/23 04/04/23 History Sucralfate [Carafate] 1 gm PO ACHS 04/04/23 04/04/23 History Allergies Allergy/AdvReac Type Severity Reaction Status Date / Time No Known Allergies Allergy Verified 04/04/23 13:06 Physical Exam Vitals: Vital Signs Temp Pulse Resp BP Pulse Ox 04/05/23 07:40 98.4 F 72 15 147/85 98 04/05/23 02:00 98.2 F 75 16 152/79 100 04/04/23 20:46 98.3 F 58 L 163/91 100 04/04/23 20:00 99.2 F 54 L 16 163/98 99 04/04/23 15:45 98.3 F 92 16 150/98 97 Intake and Output 04/04/23 04/05/23 04/05/23 22:59 06:59 14:59 Output Total 200 Balance -200 Output: Urine 200 Other: Weight 77.564 kg PHYSICAL EXAM: VITAL SIGNS: [As above] GENERAL: Sitting up in bed, no acute distress HEENT: Normocephalic, Conjunctivae normal. eyes normal. NECK: No JVD. No thyroid enlargement. No LNs CARDIOVASCULAR: S1, S2 regular.No murmur RESPIRATION: Unlabored Breath sounds diminished in the bases. No rhonchi or crackles. No bronchial breathing. ABDOMEN: Soft, mild diffuse upper abdominal/ epigastric tenderness. Nondiste nded. No palpable organomegaly or masses No guarding. LEGS: No edema. no swelling PSYCHIATRY: Alert and oriented X3, mood and affect normal. NERVOUS SYSTEM: Cranial N 2-12 grossly normal. Moves all 4 limbs. Diffuse weakness No focal deficits. Strength and sensation grossly intact.. Skin: Warm and dry, no rash Results CBC & Chem 7: 04/05/23 06:36 04/05/23 06:36 Labs: Abnormal Lab Results - Last 24 Hours (Table) 04/04/23 04/04/23 04/05/23 Range/Units 17:17 17:45 06:36 Anion Gap 13.40 H (4.00-12.00) mmol/L BUN 6.8 L (9.0-27.0) mg/dL Creatinine 0.58 L (0.66-1.25) mg/dL BUN/Creatinine Ratio 9.71 L (12.00-20.00) Ratio POC Glucose (mg/dL) 158 H (70-110) mg/dL AST 38 H (14-35) U/L Total Protein 6.0 L (6.2-8.2) g/dL Thrombosis Risk Factor Assmnt - Choose All That Apply Any of the Below Risk Factors Present?: No Assessment and Plan Assessment: Acute alcoholic pancreatitis Alcohol abuse Alcoholic liver disease Diabetes mellitus type II Hypertension Ongoing Nicotine dependence Occasional THC use Anxiety Depression Plan: Continue on current medication regime ,monitoring and symptomatic treatment. IV fluid hydration and CIWA protocol. Slow advancement of diet as clinical condition improves. Alcohol abstinence and nicotine cessation reinforced. Nicotine patch ordered. Discharge planning in progress for tomorrow, pending continued improvement. The impression and plan of care has been dictated as directed. : I performed a history and examination of this patient, discussed the same with the dictator. I agree with the dictator's note ,documented as a scribe. Any additional findings or plans will be noted.
[2023-04-05 17:24] LABS: Glucose,Whole Blood 91 mg/dL (70-110)
[2023-04-05 20:14] LABS: Glucose,Whole Blood 138 mg/dL (70-110)
[2023-04-06] MEDS: SODIUM CHLORIDE 0.9% 1,000 ML IV SCH ×2 (03:12→10:13)
[2023-04-06] MEDS: PANTOPRAZOLE 40 MG TABLET PO SCH (05:49)
[2023-04-06] MEDS: SUCRALFATE 1 GM TAB PO SCH (05:49)
[2023-04-06 06:38] LABS: Glucose,Whole Blood 107 mg/dL (70-110)
[2023-04-06] MEDS: INSULIN ASPART (NovoLOG) 100 UNIT/ML VIAL SQ SCH (06:51)
[2023-04-06 07:49] VITALS: BP 136/84; PULSE 53; TEMP 97.4
[2023-04-06] MEDS: FAMOTIDINE 20 MG TAB PO SCH (09:15)
[2023-04-06] MEDS: THIAMINE 100 MG TAB PO SCH (09:15)
[2023-04-06] MEDS: NICOTINE 14MG/24HR PATCH TRANSDERM SCH (09:15)
[2023-04-06] MEDS: amLODIPine 5 MG TAB PO SCH (09:15)
--- NOTE | 2023-04-06 11:12 | P.DS ---
Providers Date of admission: 04/04/23 11:49 Expected date of discharge: 04/06/23 Attending physician: Geovanni Richter MD Primary care physician: April Blakely [facility] Hospital Course: Final Diagnoses: Acute alcoholic pancreatitis, improved Alcohol abuse Alcoholic liver disease Diabetes mellitus type II Hypertension Ongoing Nicotine dependence Occasional THC use Anxiety Depression Hospital course:This is a 37-year-old gentleman with past medical history significant for alcohol abuse, nicotine dependence, pancreatitislast episode nearly 1 year ago, anxiety, depression and multiple other medical issues. States he had gone to a [employer] party on Wednesday night, consumed a significant amount of alcohol. He developed nausea, epigastric abdominal pain and proceeded to the ER. Denies syncope. Denies chest pain, palpitations or shortness of breath. Reports he drinks four tall boys plus hard liquor daily. afebrile, normal WBC. Serum alcohol less than 10.Lipase 478 on admission, IV fluid hydration initiated, pancreatic enzymes improving. Renal function stable. Recent CIWA score zero. Significant clinical improvement. CIWA score 0. Tolerated advancement to low-fat diet. Denies abdominal pain . Blood sugars controlled . Afebrile .Denies chest pain, palpitations or shortness of breath. Patient has been instructed to maintain a bland low-fat diet as well as alcohol abstinence. Patient will be discharged home today in a stable condition with guarded prognosis. The impression and plan of care has been dictated as directed. : I performed a history and examination of this patient, discussed the same with the dictator. I agree with the dictator's note ,documented as a scribe. Any additional findings or plans will be noted. Patient Condition at Discharge: Stable Plan - Discharge Summary New Discharge Prescriptions: New Thiamine [Vitamin B-1] 100 mg PO DAILY tab Folic Acid 1 mg PO DAILY #30 tablet Nicotine 14Mg/24Hr Patch [Habitrol] 1 patch TRANSDERM DAILY patch Continue Famotidine [Pepcid] 20 mg PO BID 14 Days #28 tab Sucralfate [Carafate] 1 gm PO ACHS Pantoprazole Sodium [Protonix] 40 mg PO DAILY metFORMIN HCL [Glucophage] 500 mg PO BID-W/MEALS 14 Days #28 tab amLODIPine [Norvasc] 5 mg PO DAILY 14 Days #14 tab Metoclopramide [Reglan] 10 mg PO TID PRN PRN Reason: admonial pain Discharge Medication List Famotidine [Pepcid] 20 mg PO BID 14 Days #28 tab 06/29/22 [Rx] amLODIPine [Norvasc] 5 mg PO DAILY 14 Days #14 tab 06/29/22 [Rx] metFORMIN HCL [Glucophage] 500 mg PO BID-W/MEALS 14 Days #28 tab 06/29/22 [Rx] Metoclopramide [Reglan] 10 mg PO TID PRN 04/04/23 [History] Pantoprazole Sodium [Protonix] 40 mg PO DAILY 04/04/23 [History] Sucralfate [Carafate] 1 gm PO ACHS 04/04/23 [History] Folic Acid 1 mg PO DAILY #30 tablet 04/06/23 [Rx] Nicotine 14Mg/24Hr Patch [Habitrol] 1 patch TRANSDERM DAILY patch 04/06/23 [Rx] Thiamine [Vitamin B-1] 100 mg PO DAILY tab 04/06/23 [Rx] Follow up Appointment(s)/Referral(s): April Blakely DO [Primary Care Provider] - 1-2 days Patient Instructions/Handouts: Seizure/Epilepsy Discharge Instructions & Follow-Up, Pancreatitis (DC) Activity/Diet/Wound Care/Special Instructions: no Etoh, Low fat diet provide pt. with resources for alcohol abuse Discharge/Stand Alone Forms: AA Meetings [facility], Community Resources, Inp Substance Abuse Facilities
== END 2023-04-06 11:29 | disposition home or self-care (01) ==
LOC: EC 08:13 → SUPCPDRO 08:13 → 6NMEDSUR 11:49
PROVIDERS: ADMIT Family Medicine; ATTEND Family Medicine
DX: K85.20 Alcohol induced acute pancreatitis without necrosis or infection (principal); F10.20 Alcohol dependence, uncomplicated; K70.9 Alcoholic liver disease, unspecified; E11.9 Type 2 diabetes mellitus without complications; I10 Essential (primary) hypertension; F32.A Depression, unspecified; F41.9 Anxiety disorder, unspecified; F12.90 Cannabis use, unspecified, uncomplicated; F17.200 Nicotine dependence, unspecified, uncomplicated; Y90.0 Blood alcohol level of less than 20 mg/100 ml; Z79.84 Long term (current) use of oral hypoglycemic drugs; Z79.899 Other long term (current) drug therapy
CPT/HCPCS: 96376 ×2; 96361 ×2; 96374; 96375; 99285; 36415; 80053 ×2; 80048; 82150; 83690 ×2; 83735; 84100; 84450; 84460; 85025 ×2; 80320; 74018; G0378 ×3; S4990 ×2; J2405; J1170 ×2

== ENCOUNTER 2023-06-07 04:13 | Inpatient (IN) | payer BC, OTHER ==
--- NOTE | 2023-06-07 04:51 | ED ---
General Adult HPI - General Chief complaint: Psychiatric Symptoms Stated complaint: Self harm, alcohol Time Seen by Provider: 06/07/23 04:48 Source: patient Mode of arrival: EMS - History of Present Illness Initial comments: This patient is a 37-year-old man who presents with complaint that he has been feeling suicidal and took extra doses of hydroxyzine as suicide attempt. The patient also drank hard liquor. He denies coingestants. -: hour(s) Severity scale (1-10): 0 Consistency: constant Improves with: none Worsens with: none Associated Symptoms: denies other symptoms Treatments Prior to Arrival: none - Related Data Previous Rx's Medication Instructions Recorded Acetaminophen Tab [Tylenol] 650 mg PO Q6HR PRN tab 06/09/23 Famotidine [Pepcid] 20 mg PO BID 30 Days #60 tab 06/14/23 Folic Acid 1 mg PO DAILY 30 Days #30 tab 06/14/23 INSULIN ASPART (NovoLOG) [NovoLOG 0 unit SQ ACHS each 06/14/23 (formulary)] Melatonin 10 mg PO HS 30 Days #60 tab 06/14/23 Multivitamins, Thera [Multivitamin 1 each PO DAILY 30 Days #30 tab 06/14/23 (formulary)] Naltrexone HCl [Revia] 50 mg PO DAILY 30 Days #30 tab 06/14/23 Nicotine 14Mg/24Hr Patch [Habitrol] 1 patch TRANSDERM DAILY 14 Days 06/14/23 #14 patch Sertraline [Zoloft] 100 mg PO HS 30 Days #30 tab 06/14/23 Thiamine [Vitamin B-1] 100 mg PO DAILY 30 Days #30 tab 06/14/23 metFORMIN HCL [Glucophage] 500 mg PO BID 30 Days #60 tab 06/14/23 traZODone HCL 200 mg PO HS 30 Days #60 tablet 06/14/23 Allergies Allergy/AdvReac Type Severity Reaction Status Date / Time No Known Allergies Allergy Verified 06/07/23 10:45 Review of Systems ROS Statement: Those systems with pertinent positive or pertinent negative responses have been documented in the HPI. ROS Other: All systems not noted in ROS Statement are negative. Constitutional: Denies: fever, chills Respiratory: Denies: cough, dyspnea Cardiovascular: Denies: chest pain Gastrointestinal: Reports: nausea, vomiting. Denies: abdominal pain, diarrhea Genitourinary: Denies: dysuria, hematuria Musculoskeletal: Denies: back pain Skin: Denies: rash Neurological: Denies: headache Psychiatric: Reports: depression, suicidal thoughts Past Medical History Past Medical History: Diabetes Mellitus, Hypertension Additional Past Medical History / Comment(s): pancreatitis History of Any Multi-Drug Resistant Organisms: None Reported Past Surgical History: No Surgical Hx Reported Past Anesthesia/Blood Transfusion Reactions: No Reported Reaction Past Psychological History: Depression Smoking Status: Current every day smoker, Vaper Past Alcohol Use History: Daily, Heavy Past Drug Use History: Marijuana - Past Family History Father Family Medical History: Hypertension General Exam General appearance: alert, in no apparent distress, appears intoxicated Head exam: Present: atraumatic, normocephalic Eye exam: Present: normal appearance. Absent: scleral icterus, conjunctival injection ENT exam: Present: mucous membranes dry Neck exam: Present: normal inspection Respiratory exam: Present: normal lung sounds bilaterally. Absent: respiratory distress, wheezes, rales, rhonchi, stridor Cardiovascular Exam: Present: regular rate, normal rhythm, normal heart sounds. Absent: systolic murmur, diastolic murmur, rubs, gallop GI/Abdominal exam: Present: soft. Absent: distended, tenderness, guarding, rebound, rigid, mass Extremities exam: Present: normal inspection Back exam: Present: normal inspection. Absent: CVA tenderness (R), CVA tenderness (L) Neurological exam: Present: alert Psychiatric exam: Present: depressed, suicidal ideation. Absent: manic, homicidal ideation Skin exam: Present: warm, dry, intact, normal color. Absent: rash Course Vital Signs 06/07/23 06/07/23 06/07/23 04:21 06:05 21:00 Temperature 97.9 F 98.1 F Pulse Rate 118 H 100 82 Pulse Rate [ Pulse Oximetery ] Respiratory 17 17 18 Rate Blood Pressure 148/106 114/73 116/68 Blood Pressure [Left Arm] O2 Sat by Pulse 98 93 L 99 Oximetry 06/08/23 06/08/23 06/08/23 06:03 09:02 14:08 Temperature 97.9 F 98.4 F Pulse Rate 80 63 61 Pulse Rate [ Pulse Oximetery ] Respiratory 20 18 18 Rate Blood Pressure 112/74 120/78 135/98 Blood Pressure [Left Arm] O2 Sat by Pulse 99 97 100 Oximetry 06/08/23 14:29 Temperature 98.4 F Pulse Rate Pulse Rate [ 55 L Pulse Oximetery ] Respiratory 18 Rate Blood Pressure Blood Pressure 173/92 [Left Arm] O2 Sat by Pulse 100 Oximetry EKG Findings - EKG Results: EKG: interpreted by ERMD, sinus rhythm, normal axis, normal QRS, normal ST/T EKG shows: tachycardia (Rate 112 bpm) Medical Decision Making - Medical Decision Making Patient is a 37-year-old man here to have psychiatric evaluation with suicidal ideation. The patient found to have markedly elevated ethanol level and given risk of withdrawal the patient is admitted medically with pending psychiatric consultation. Was pt. sent in by a medical professional or institution (, PA, COURTESY DRIVER, urgent care, hospital, or long term...) When possible be specific @ -[No] Did you speak to anyone other than the patient for history (EMS, parent, family, police, friend...)? What history was obtained from this source @ -[No] Did you review nursing and triage notes (agree or disagree)? Why? @ -[I reviewed and agree with nursing and triage notes] Were old charts reviewed (outside hosp., previous admission, EMS record, old EKG, old radiological studies, urgent care reports/EKG's, long term records)? Report findings @ -[No old charts were reviewed] Differential Diagnosis (chest pain, altered mental status, abdominal pain women, abdominal pain men, vaginal bleeding, weakness, fever, dyspnea, syncope, headache, dizziness, GI bleed, back pain, seizure, CVA, palpatations, mental health, musculoskeletal)? @ -[Differential Mental Health Depression, anxiety, bipolar, psychosis, schizophrenia, borderline personality, situational depression, adjustment disorder, behavioral disorder, brain tumor, malingering, substance abuse, encephalopathy, medication reaction, dementia, hypothyroidism, degenerative neurologic disorder, lupus.... This is not meant to be all-inclusive list EKG interpreted by me (3pts min.). @ -[As above] X-rays interpreted by me (1pt min.). @ -[None done] CT interpreted by me (1pt min.). @ -[None done] U/S interpreted by me (1pt. min.). @ -[None done] What testing was considered but not performed or refused? (CT, X-rays, U/S, labs)? Why? @ -[None] What meds were considered but not given or refused? Why? @ -[None] Did you discuss the management of the patient with other professionals (professionals i.e. , PA, COURTESY DRIVER, lab, RT, psych nurse, high school social science teacher, net developer architect, teacher, credit risk review officer, family service caseworker)? Give summary @ -[No] Was smoking cessation discussed for >3mins.? @ -[No] Was critical care preformed (if so, how long)? @ -[No] Were there social determinants of health that impacted care today? How? (Homelessness, low income, unemployed, alcoholism, drug addiction, transportation, low edu. Level, literacy, decrease access to med. care, long-term, rehab)? @ -[Alcoholism Was there de-escalation of care discussed even if they declined (Discuss DNR or withdrawal of care, Hospice)? DNR status @ -[No] What co-morbidities impacted this encounter? (DM, HTN, Smoking, COPD, CAD, Cancer, CVA, ARF, Chemo, Hep., AIDS, mental health diagnosis, sleep apnea, morbid obesity)? @ -[None] Was patient admitted / discharged? Hospital course, mention meds given and route, prescriptions, significant lab abnormalities, going to OR and other pertinent info. @ -[Patient is admitted to have CIWA protocol and further psychiatric care Undiagnosed new problem with uncertain prognosis? @ -[No] Drug Therapy requiring intensive monitoring for toxicity (Heparin, Nitro, Insulin, Cardizem)? @ -[No] Were any procedures done? @ -[No] Diagnosis/symptom? @ -[Acute alcohol intoxication Mood disorder Acute, or Chronic, or Acute on Chronic? @ -[Acute Uncomplicated (without systemic symptoms) or Complicated (systemic symptoms)? @ -[Uncomplicated Side effects of treatment? @ -[No] Exacerbation, Progression, or Severe Exacerbation? @ -[No] Poses a threat to life or bodily function? How? (Chest pain, [place], [place], pneumonia, PE, COPD, DKA, ARF, appy, cholecystitis, CVA, Diverticulitis, Homicidal, Suicidal, threat to staff... and all critical care pts) @ -[Yes there is a real threat to life based on impending DTs and also risk of progression from suicidal ideation to suicide attempt - Lab Data Result diagrams: 06/08/23 08:24 06/08/23 08:24 Lab Results 06/07/23 06/07/23 Range/Units 04:58 05:58 WBC 10.2 (3.8-10.6) k/uL RBC 5.79 (4.30-5.90) m/uL Hgb 16.9 (13.0-17.5) gm/dL Hct 53.1 H (39.0-53.0) % MCV 91.7 (80.0-100.0) fL MCH 29.2 (25.0-35.0) pg MCHC 31.9 (31.0-37.0) g/dL RDW 13.7 (11.5-15.5) % Plt Count 231 (150-450) k/uL MPV 8.7 Neutrophils % 36 % Lymphocytes % 51 % Monocytes % 5 % Eosinophils % 4 % Basophils % 1 % Neutrophils # 3.7 (1.3-7.7) k/uL Lymphocytes # 5.2 H (1.0-4.8) k/uL Monocytes # 0.5 (0-1.0) k/uL Eosinophils # 0.4 (0-0.7) k/uL Basophils # 0.1 (0-0.2) k/uL Sodium 147 H (137-145) mmol/L Potassium 4.1 (3.5-5.1) mmol/L Chloride 111 H (98-107) mmol/L Carbon Dioxide 23 (22-30) mmol/L Anion Gap 13 mmol/L BUN 14 (9-20) mg/dL Creatinine 0.69 (0.66-1.25) mg/dL Est GFR (CKD-EPI)AfAm >90 (>60 ml/min/1.73 sqM) Est GFR (CKD-EPI)NonAf >90 (>60 ml/min/1.73 sqM) Glucose 200 H (74-99) mg/dL Calcium 9.7 (8.4-10.2) mg/dL Total Bilirubin 0.4 (0.2-1.3) mg/dL AST 78 H (17-59) U/L ALT 46 (4-49) U/L Alkaline Phosphatase 116 (38-126) U/L Total Protein 7.8 (6.3-8.2) g/dL Albumin 4.9 (3.5-5.0) g/dL Salicylates <1.0 mg/dL Acetaminophen <10.0 ug/mL Serum Alcohol 409 H* mg/dL Disposition Clinical Impression: Overdose of medication, Alcohol abuse Disposition: ADMITTED IP TO THIS HOSP Condition: Fair Is patient prescribed a controlled substance at d/c from ED?: No
[2023-06-07 05:07] LABS: Basophils # (A) 0.1 k/uL (0-0.2); Basophils % (A) 1 %; Eosinophils # (A) 0.4 k/uL (0-0.7); Eosinophils % (A) 4 %; HCT 53.1 % (39.0-53.0); HGB 16.9 gm/dL (13.0-17.5); Lymphocytes # (A) 5.2 k/uL (1.0-4.8); Lymphocytes % (A) 51 %; MCH 29.2 pg (25.0-35.0); MCHC 31.9 g/dL (31.0-37.0); MCV 91.7 fL (80.0-100.0); Mean Platelet Volume 8.7; Monocytes # (A) 0.5 k/uL (0-1.0); Monocytes % (A) 5 %; Neutrophils # (A) 3.7 k/uL (1.3-7.7); Neutrophils % (A) 36 %; Platelet Count 231 k/uL (150-450); RBC 5.79 m/uL (4.30-5.90); RDW 13.7 % (11.5-15.5); WBC 10.2 k/uL (3.8-10.6)
[2023-06-07 06:43] LABS: ALT 46 U/L (4-49); AST 78 U/L (17-59); Acetaminophen <10.0 ug/mL; African American GFR (CKD) >90 (>60 ml/min/1.73 sqM); Albumin 4.9 g/dL (3.5-5.0); Alkaline Phosphatase 116 U/L (38-126); Anion Gap 13 mmol/L; Blood Urea Nitrogen 14 mg/dL (9-20); Calcium 9.7 mg/dL (8.4-10.2); Carbon Dioxide 23 mmol/L (22-30); Chloride 111 mmol/L (98-107); Glucose 200 mg/dL (74-99); Non-African American GFR(CKD) >90 (>60 ml/min/1.73 sqM); Potassium 4.1 mmol/L (3.5-5.1); Salicylate <1.0 mg/dL; Sodium 147 mmol/L (137-145); Total Bilirubin 0.4 mg/dL (0.2-1.3); Total Protein 7.8 g/dL (6.3-8.2)
[2023-06-07 07:07] LABS: Alcohol 409 mg/dL
[2023-06-07] MEDS ORDERED: ACETAMINOPHEN TAB 325 MG TAB PO PRN (07:15)
[2023-06-07] MEDS ORDERED: ONDANSETRON 4 MG/2 ML VIAL IVP PRN (07:15)
[2023-06-07] MEDS ORDERED: NALOXONE 0.4 MG/ML 1 ML VIAL IV PRN (07:15)
[2023-06-07] MEDS ORDERED: LORazepam 2 MG/ML INJ IV PRN ×3 (07:18)
[2023-06-07] MEDS ORDERED: chlordiazePOXIDE 25 MG CAP PO PRN (07:18)
[2023-06-07] MEDS: THIAMINE 100 MG/ML 2 ML VIAL IM STA (07:56)
[2023-06-07] MEDS: FAMOTIDINE 20 MG TAB PO SCH (07:56)
[2023-06-07] MEDS: SODIUM CHLORIDE 0.9% 1,000 ML IV SCH (07:57)
[2023-06-07] MEDS: PANTOPRAZOLE 40 MG/10 ML VIAL IVP SCH (11:33)
[2023-06-07 15:08] LABS: Amphetamine Screen,Urine Not Detected (NotDetected); Barbiturate Screen,Urine Not Detected (NotDetected); Benzodiazepines Screen,Urine Not Detected (NotDetected); Cocaine Screen,Urine Not Detected (NotDetected); Methadone Screen, Urine Not Detected (NotDetected); Opiate Screen,Urine Not Detected (NotDetected); Oxycodone Screen, Urine Not Detected (NotDetected); Phencyclidine Screen,Urine Not Detected (NotDetected); Tricyclic Antidepressant,Urine Not Detected (NotDetected); Urn Cannabinoid Scrn Not Detected (NotDetected)
[2023-06-07] MEDS ORDERED: DEXTROSE 50% SYRINGE 50 ML IVP PRN ×2 (16:33)
--- NOTE | 2023-06-07 16:45 | P.HPIM ---
History of Present Illness H&P Date: 06/08/23 Chief Complaint: Suicidal, intoxicated This is a 37-year-old gentleman with past medical history significant for alcohol abuse, nicotine dependence, pancreatitis, anxiety, depression and multiple other medical issues.brought into the ER via EMS, reports suicidal, took 13 hydroxyzine 50 mg in addition to drinking hard liquor.over the weekend he consumed 2 pints of hard liquor in addition to 6 beers .reports significant personal stress, currently going through a divorce, lost his job.denies chest pain, palpitations or shortness of breath. afebrile, normal WBC. Toxicology reported less than 1 of salicylates and less than 10 of acetaminophen with serum alcohol 409. Renal function stable. AST 78. sleeping, maintaining O2 sats in the 90s on room air. CIWA score pending. Review of Systems ROS Statement: Those systems with pertinent positive or pertinent negative responses have been documented in the HPI. ROS Other: All systems not noted in ROS Statement are negative. Past Medical History Past Medical History: Diabetes Mellitus, Hypertension Additional Past Medical History / Comment(s): pancreatitis History of Any Multi-Drug Resistant Organisms: None Reported Past Surgical History: No Surgical Hx Reported Past Anesthesia/Blood Transfusion Reactions: No Reported Reaction Past Psychological History: Depression Smoking Status: Current every day smoker, Vaper Past Alcohol Use History: Daily, Heavy Past Drug Use History: Marijuana - Past Family History Father Family Medical History: Hypertension Medications and Allergies Home Medications Medication Instructions Recorded Confirmed Type amLODIPine [Norvasc] 5 mg PO DAILY 14 Days #14 tab 06/29/22 06/07/23 Rx metFORMIN HCL [Glucophage] 500 mg PO BID 06/07/23 06/07/23 History Allergies Allergy/AdvReac Type Severity Reaction Status Date / Time No Known Allergies Allergy Verified 06/07/23 10:45 Physical Exam Vitals: Vital Signs Temp Pulse Resp BP Pulse Ox 06/07/23 06:05 100 17 114/73 93 L 06/07/23 04:21 97.9 F 118 H 17 148/106 98 Intake and Output 06/07/23 06/07/23 06/07/23 06:59 14:59 22:59 Other: Weight 79.379 kg VITAL SIGNS: [As above] GENERAL: Alert and oriented x 3, sitting up in bed, no acute distress HEENT: Normocephalic, Conjunctivae normal. eyes normal. NECK: Supple, no JVD. No thyroid enlargement. No LNs CARDIOVASCULAR: S1, S2 regular.No murmur RESPIRATION: Unlabored Breath sounds diminished in the bases. No rhonchi or crackles. No bronchial breathing. ABDOMEN: Soft, nontender, nondistended. No palpable organomegaly or masses No guarding. LEGS: No edema. no swelling NERVOUS SYSTEM: Cranial nerves II through XII grossly intact Skin: Warm and dry, no rash Results CBC & Chem 7: 06/07/23 04:58 06/08/23 08:24 Labs: Abnormal Lab Results - Last 24 Hours (Table) 06/07/23 06/07/23 Range/Units 04:58 05:58 Hct 53.1 H (39.0-53.0) % Lymphocytes # 5.2 H (1.0-4.8) k/uL Sodium 147 H (137-145) mmol/L Chloride 111 H (98-107) mmol/L Glucose 200 H (74-99) mg/dL AST 78 H (17-59) U/L Serum Alcohol 409 H* mg/dL Assessment and Plan Assessment: Suicidal , overdose of medication in addition to alcohol abuse Alcoholic liver disease Diabetes mellitus type II Hypertension Ongoing Nicotine dependence Occasional THC use Anxiety Depression Plan: Continue on current medication regime ,monitoring and symptomatic treatment. Suicide precautions, psych consult in place. IV fluid hydration and CIWA protocol. The impression and plan of care has been dictated as directed. : I performed a history and examination of this patient, discussed the same with the dictator. I agree with the dictator's note ,documented as a scribe. Any a dditional findings or plans will be noted.
[2023-06-07 17:19] LABS: Glucose,Whole Blood 82 mg/dL (70-110)
[2023-06-07] MEDS: INSULIN ASPART (NovoLOG) 100 UNIT/ML VIAL SQ SCH (17:22)
[2023-06-07 20:31] LABS: Glucose,Whole Blood 140 mg/dL (70-110)
[2023-06-08 06:35] LABS: Glucose,Whole Blood 90 mg/dL (70-110)
[2023-06-08] MEDS: THIAMINE 100 MG TAB PO SCH (08:58)
[2023-06-08 09:06] LABS: African American GFR (CKD) >90 (>60 ml/min/1.73 sqM); Anion Gap 6 mmol/L; Blood Urea Nitrogen 13 mg/dL (9-20); Calcium 9.6 mg/dL (8.4-10.2); Carbon Dioxide 24 mmol/L (22-30); Chloride 110 mmol/L (98-107); Glucose 117 mg/dL (74-99); Magnesium 1.6 mg/dL (1.6-2.3); Non-African American GFR(CKD) >90 (>60 ml/min/1.73 sqM); Potassium 4.1 mmol/L (3.5-5.1); Sodium 140 mmol/L (137-145)
[2023-06-08 12:18] LABS: Glucose,Whole Blood 97 mg/dL (70-110)
[2023-06-08] MEDS ORDERED: traZODone HCL 50 MG TAB PO PRN (13:53)
--- NOTE | 2023-06-08 13:53 | P.CN ---
Psychiatric Consult - . Consult date: 06/08/23 Consult:: IDENTIFYING DATA: This patient is a 37-year-old -[place] male, , stepson, lives in a duplex. Works in a factory REASON FOR REFERRAL: Psychiatry was consulted for suicidal ideation, overdose. HISTORY OF PRESENT ILLNESS: The patient presented to the hospital on 06/07. States he took 13 pills of Vistaril in an attempt to overdose because him and his were fighting about him drinking. His is also upset that he sold the TV that he had but, threatening divorce. States his mood has been depressed for the past couple weeks. Patient was drinking heavily was in his garage, took the pills, began to get scared and called the police to bring him to the hospital. Patient claims that his anxiety is pretty bad, and his sleep and appetite is pretty good. Patient states that his does not know that he is in the hospital at this time, and asked if he could reach out to her. At this time patient denies any suicidal or homical ideations, intent or plan. Patient denies any auditory, visual hallucinations and denies any paranoia or delusions. Patients admits to using Marijuana. The patient does report a significant history of substance abuse. He states that he smokes 1 pack per day of tobacco. Furthermore, the patient's drug of choice is alcohol, with his last drink being Wednesday. He reports drinking 9-12 alcoholic beverages per day during the work week and more than that over the weekends. He denies history of withdrawal symptoms including tremors however denies any history of seizures or delirium tremens. The patient has had a rehab stays in [place] a few years ago, and most recently [place] PAST PSYCHIATRIC HISTORY: Patient states that he has been diagnosed with alcohol use disorder and depression. The patient is only able to recall being previously prescribed BuSpar in the past. He is currently not open with any outpatient services. He has previous inpatient psychiatric admission, with the last being June 2022. The patient reports two prior attempt at suicide. PAST MEDICAL HISTORY: as per ed note. ALLERGIES: as per EMR. CHEMICAL DEPENDENCY HISTORY: as per HPI. FAMILY PSYCHIATRIC/SUBSTANCE USE HISTORY: No reported family psychiatric. history of substance use. SOCIAL HISTORY: Patient was born and raised in Patient was born and raised in [place], [place]. The patient currently lives with his and 2 stepchildren. He has been to her for 6 years. They have been together for 17 years. 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 He graduated 12th grade. He reports a Gnosticist genny however is nonpracticing. His father was a Adventism model dresser.. MENTAL STATUS EXAM: General Appearance: Patient appears to be stated age is alert, directable, and attempts to cooperate. Patient appears to have slightly disheveled hygiene and grooming. Behavior: Patient is seated without any agitated behavior. Eye contact is appropriate. Speech: Patient's speech is fluent and nonpressured. Mood/Affect: Patient reports their mood is depressed and anxious, affect is congruent Suicidality/Homicidality: Patient is denying any suicidal or homicidal ideation. Perceptions: Patient denies any visual hallucinations and denies any auditory hallucinations Though content/process: There is no evidence of any delusional thought content and thought process is linear and goal-directed. concrete. Memory and concentration: AOX3, grossly intact for the purposes of this session. Can spell "WORLD" backwards Judgment and insight: poor/impuslive. IMPRESSIONS: suicide attempt by overdose of psychotropic medications. Major depressive disorder, recurrent, severe, without psychotic features Alcohol use disorder Tobacco use disorder Cannabis use disorder PLAN: -At this time patient DOES meet criteria for inpatient psychiatric admission. -Would recommend the following medication changes/additions: Trazodone 150mg prn for insomnia Librium 25mg TID for withdraw, will hold off on antidepressants once patient is admitted to the [facility] protocol with PRN Ativan for alcohol withdrawal. Continue to monitor vital signs -Continue 1:1 sitter for safety -Cannot leave AMA at this time. Patient will need a petition and certification if attempting to leave AMA. -body shop worker to provide patient with outpatient mental health/psychiatry resources for appropriate follow up upon discharge -Experimental Aircraft Mechanic spoke with patient about substance abuse and the harmful effects on medical and mental health, patient verbally understood and agreed. -body shop worker to provide patient substance use treatment resources including AA/NA meetings in the community. -When medically stable, patient is eligible for transfer to a psych bed when available. -Communicated plan to patient's nurse -at this time psychiatry will sign off. -Please contact with any questions. 06/08/23 13:26 06/08/23 13:46 06/08/23 13:50
[2023-06-08] MEDS: chlordiazePOXIDE 25 MG CAP PO SCH (15:27)
[2023-06-08] MEDS: NICOTINE 14MG/24HR PATCH TRANSDERM SCH (15:27)
[2023-06-08 15:32] LABS: Basophils # (A) 0.09 X 10*3/uL (0.00-0.10); Basophils % (A) 1.5 %; Eosinophils # (A) 0.17 X 10*3/uL (0.04-0.35); Eosinophils % (A) 2.8 %; HCT 44.6 % (39.6-50.0); HGB 14.6 g/dL (13.0-17.0); Lymphocytes # (A) 2.47 X 10*3/uL (0.90-5.00); Lymphocytes % (A) 40.8 %; MCH 29.5 pg (27.0-32.0); MCHC 32.7 g/dL (32.0-37.0); MCV 90.1 FL (80.0-97.0); Mean Platelet Volume 11.6 FL (9.5-12.2); Monocytes # (A) 0.73 X 10*3/uL (0.20-1.00); NRBC Per 100 WBC 0 X 10*3/uL (0.00-0.01); Neutrophils # (A) 2.59 X 10*3/uL (1.80-7.70); Neutrophils % (A) 42.7 %; Platelet Count 183 X 10*3/uL (140-440); RBC 4.95 X 10*6/uL (4.40-5.60); RDW 13.8 % (11.5-14.5); WBC 6.06 X 10*3/uL (4.50-10.00)
[2023-06-08 16:56] LABS: Glucose,Whole Blood 134 mg/dL (70-110)
[2023-06-08 20:38] LABS: Glucose,Whole Blood 146 mg/dL (70-110)
[2023-06-09 07:23] LABS: Glucose,Whole Blood 119 mg/dL (70-110)
[2023-06-09 08:39] VITALS: RESP 16
[2023-06-09 11:47] LABS: Glucose,Whole Blood 129 mg/dL (70-110)
[2023-06-09 13:44] VITALS: BP 159/92; PULSE 56; TEMP 97.6
--- NOTE | 2023-06-09 13:59 | P.DS ---
Providers Date of admission: 06/07/23 07:16 Expected date of discharge: 06/09/23 Attending physician: Geovanni Richter MD Consults: 06/07/23 07:15 Consult Physician Routine Consulting Provider: Mitchel Antonio Consult Reason/Comments: suicidal ideation Do you want consulting provider notified?: Already Contacted Primary care physician: April Blakely Hospital Course: Final diagnosis Suicidal , overdose of medication in addition to alcohol abuse Alcoholic liver disease Diabetes mellitus type II Hypertension Ongoing Nicotine dependence Occasional THC use Anxiety Depression Discharge disposition Patient is being transferred in a stable condition with guarded prognosis to [facility] psychiatric unit for further evaluation. Patient will follow-up with Dr. Blakely in the outpatient setting upon discharge. Patient is to continue with Librium taper and outpatient follow-up with [facility] as scheduled. Total time taken is greater than 35 minutes. Hospital course This is a 37-year-old male who was recently admitted with alcohol intoxication along with suicidal ideation with attempted overdose. Patient maintained on CIWA protocol and was evaluated by psychiatry recommending inpatient psych. Patient not requiring any IV Ativan and is maintained on Librium taper recommend to continue with 25 mg 3 times daily for 1 day, then 25 mg twice daily for 1 day, then 25 mg daily then discontinue. Complete alcohol cessation was discussed with the patient. Patient to follow-up with primary care provider on discharge. Patient currently awaiting a bed assignment on 3 [facility]. Patient is medically stable to be discharged to 3 [address]. today. Currently no reports of chest pain, shortness of breath, or palpitations. Patient is afebrile. No reports of nausea or vomiting and patient is tolerating diet. Patient will be 3 W. inpatient psychiatric unit today. Physical exam: Gen: This is a 37-year-old male who is awake, alert and oriented x 3, well- developed, well-nourished HEENT: Head is atraumatic, normocephalic. Pupils equal, round. Sclerae is anicteric. NECK: Supple. No JVD. No lymphadenopathy. No thyromegaly. LUNGS: Clear to auscultation. No wheezes or rhonchi. No intercostal retractions. HEART: Regular rate and rhythm. No murmur. ABDOMEN: Soft. Bowel sounds are present. No masses. No tenderness. EXTREMITIES: No pedal edema. No calf tenderness. NEUROLOGICAL: Patient is awake, alert and oriented x3. Cranial nerves 2 through 12 are grossly intact. Please refer to medication reconciliation sheet for a list of medications. The impression and plan of care has been dictated by Grace Florez, Nurse Practitioner as directed. Dr. Alpesh MD I have performed a history and examination and MDM of this patient, discussed the same with the dictator, and agree with the dictator's assessment and plan as written ,documented as a scribe. Based on total visit time, I have performed more than 50% of the visit. Patient Condition at Discharge: Fair Plan - Discharge Summary Discharge Rx Participant: Yes New Discharge Prescriptions: New traZODone HCL [Desyrel] 150 mg PO HS PRN tab PRN Reason: Insomnia Nicotine 14Mg/24Hr Patch [Habitrol] 1 patch TRANSDERM DAILY patch Famotidine [Pepcid] 20 mg PO BID tab Thiamine [Vitamin B-1] 100 mg PO DAILY tab chlordiazePOXIDE HCl [Librium] 25 mg PO TID #6 cap INSULIN ASPART (NovoLOG) [NovoLOG (formulary)] 0 unit SQ ACHS each Acetaminophen Tab [Tylenol] 650 mg PO Q6HR PRN tab PRN Reason: Mild Pain Or Fever > 100.5 Continue metFORMIN HCL [Glucophage] 500 mg PO BID Discontinued amLODIPine [Norvasc] 5 mg PO DAILY 14 Days #14 tab Discharge Medication List metFORMIN HCL [Glucophage] 500 mg PO BID 06/07/23 [History] Acetaminophen Tab [Tylenol] 650 mg PO Q6HR PRN tab 06/09/23 [Rx] Famotidine [Pepcid] 20 mg PO BID tab 06/09/23 [Rx] INSULIN ASPART (NovoLOG) [NovoLOG (formulary)] 0 unit SQ ACHS each 06/09/23 [Rx] Nicotine 14Mg/24Hr Patch [Habitrol] 1 patch TRANSDERM DAILY patch 06/09/23 [Rx] Thiamine [Vitamin B-1] 100 mg PO DAILY tab 06/09/23 [Rx] chlordiazePOXIDE HCl [Librium] 25 mg PO TID #6 cap 06/09/23 [Rx] traZODone HCL [Desyrel] 150 mg PO HS PRN tab 06/09/23 [Rx] Follow up Appointment(s)/Referral(s): April Blakely DO [Primary Care Provider] - 1 Week Activity/Diet/Wound Care/Special Instructions: Patient is medically stable for transfer to [facility] for continued psychiatric services follow-up with primary care provider on discharge Continue with [facility] outpatient Avoid all alcohol intake and exposure Continue Librium 25 mg 3 times daily for 1 day, then 25 mg twice daily for 1 day, then 25 mg daily for 1 day then discontinue Discharge Disposition: TRANSFER TO PSYCH HOSP/UNIT
[2023-06-09 17:08] LABS: Glucose,Whole Blood 121 mg/dL (70-110)
== END 2023-06-09 18:43 | DRG 817 ==
LOC: EC 04:13 → 4SSUR 07:16 → 5NMEDONC 06-08 13:19
PROVIDERS: ADMIT Family Medicine; ATTEND Family Medicine
DX: T43.592A Poisoning by other antipsychotics and neuroleptics, intentional self-harm, initial encounter (principal); E11.9 Type 2 diabetes mellitus without complications; F10.10 Alcohol abuse, uncomplicated; F17.200 Nicotine dependence, unspecified, uncomplicated; F41.9 Anxiety disorder, unspecified; F33.2 Major depressive disorder, recurrent severe without psychotic features; Y90.8 Blood alcohol level of 240 mg/100 ml or more; F10.129 Alcohol abuse with intoxication, unspecified; I10 Essential (primary) hypertension; K70.9 Alcoholic liver disease, unspecified; Z79.84 Long term (current) use of oral hypoglycemic drugs; Z79.899 Other long term (current) drug therapy; Z82.49 Family history of ischemic heart disease and other diseases of the circulatory system; Z63.5 Disruption of family by separation and divorce; Z11.52 Encounter for screening for COVID-19; Z71.41 Alcohol abuse counseling and surveillance of alcoholic; Z56.0 Unemployment, unspecified
CPT/HCPCS: 36415; 80048; 80053; 80143; 80179; 80306; 80320; 82075; 83036; 83735; 85025; 87635; 93005; 96361; 96374; 99285

== ENCOUNTER 2023-06-09 18:20 | Inpatient (IN) | payer MEDICAID ==
[2023-06-09] MEDS ORDERED: MAG HYDROX/AL HYDROX/SIMETH 30 ML CUP PO PRN (18:27)
[2023-06-09] MEDS ORDERED: ACETAMINOPHEN TAB 325 MG TAB PO PRN (18:27)
[2023-06-09] MEDS ORDERED: LORazepam 1 MG TAB PO PRN ×3 (18:30→18:34)
[2023-06-09] MEDS ORDERED: LORazepam 2 MG/ML INJ IM PRN (18:34)
[2023-06-09 20:12] LABS: Glucose,Whole Blood 159 mg/dL (70-110)
[2023-06-09] MEDS: FAMOTIDINE 20 MG TAB PO SCH (20:17)
[2023-06-09] MEDS: metFORMIN 500 MG TAB PO SCH (20:17)
[2023-06-09] MEDS: INSULIN ASPART (NovoLOG) 100 UNIT/ML VIAL SQ SCH (20:18)
[2023-06-09] MEDS: chlordiazePOXIDE 25 MG CAP PO SCH (20:53)
[2023-06-09] MEDS: traZODone HCL 50 MG TAB PO PRN (20:53)
[2023-06-10 07:44] LABS: Glucose,Whole Blood 126 mg/dL (70-110)
[2023-06-10] MEDS: NICOTINE 14MG/24HR PATCH TRANSDERM SCH (07:53)
[2023-06-10] MEDS: MULTIVITAMINS, THERA 1 EACH TAB PO SCH (07:54)
[2023-06-10] MEDS: THIAMINE 100 MG TAB PO SCH (07:54)
[2023-06-10] MEDS: chlordiazePOXIDE 25 MG CAP PO SCH (07:54)
[2023-06-10] MEDS: FOLIC ACID 1 MG TAB PO SCH (07:54)
--- NOTE | 2023-06-10 12:24 | P.HP ---
Psychiatric H&P - . H&P Date: 06/10/23 History & Physical: Allergies Allergy/AdvReac Type Severity Reaction Status Date / Time No Known Allergies Allergy Verified 06/07/23 10:45 Vital Signs Temp 98.2 F 06/09/23 18:53 Pulse 88 06/09/23 21:15 Resp 18 06/09/23 21:15 BP 144/91 06/09/23 21:15 Pulse Ox 99 06/09/23 18:53 FiO2 Intake & Output 06/09/23 06/10/23 06/10/23 18:59 06:59 18:59 Weight 79.379 kg 74.389 kg Laboratory Last Values POC Glucose (mg/dL) 126 mg/dL (70-110) H 06/10/23 07:43 POC Glu Financial Management Analyst ID Monica Garcia 06/10/23 07:43 06/10/23 08:57 IDENTIFYING DATA: Patient is a This patient is a 37-year-old -Central African male, , stepson, lives in a duplex. Works in a factory HPI: Patient presented to the hospital on 06/07. Shift Coordinator was consulted for SI and OD. Writers original consult stated, "States he took 13 pills of Vistaril in an attempt to overdose because him and his were fighting about him drinking. His is also upset that he sold the TV that he had but, threatening divorce. States his mood has been depressed for the past couple weeks. Patient was drinking heavily was in his garage, took the pills, began to get scared and called the police to bring him to the hospital. Patient claims that his anxiety is pretty bad, and his sleep and appetite is pretty good. Patient states that his does not know that he is in the hospital at this time, and asked if he could reach out to her. At this time patient denies any suicidal or homical ideations, intent or plan. Patient denies any auditory, visual hallucinations and denies any paranoia or delusions. Patients admits to using Marijuana. The patient does report a significant history of substance abuse. He states that he smokes 1 pack per day of tobacco. Furthermore, the patient's drug of choice is alcohol, with his last drink being Wednesday. He reports drinking 9-12 alcoholic beverages per day during the work week and more than that over the weekends. He denies history of withdrawal symptoms including tremors however denies any history of seizures or delirium tremens. The patient has had a rehab stays in [place] a few years ago, and most recently [place]." Upon todays interview, patient states that he is ok, and he is attending groups. States his anxiety is good, as well as his mood. Appetite is good, not sleeping well, medical technical writer spoke with patient about adjusting his medications, patient agreeable. Offered naltraxone to patient for his alcohol cravings, patient agreeable. Spoke with patient about rehab upon discharge, patient stated inpatient rehab does not work for him, and he will consider outpatient rehab and attend AA meetings. Patient denies any suicidal or homicidal ideations intent or plan. At this time patient denies any auditory or visual hallucinations. Patient denies any flight of ideas racing thoughts and increased in goal directed behavior. PAST PSYCHIATRIC HISTORY: Patient states that he has been diagnosed with alcohol use disorder and depression. The patient is only able to recall being previously prescribed BuSpar in the past. He is currently not open with any outpatient services. He has previous inpatient psychiatric admission, with the last being June 2022. The patient reports two prior attempt at suicide. PMH:As per ER note ALLERGIES: as per EMR CHEMICAL DEPENDENCY HISTORY: as per HPI FAMILY PSYCHIATRIC/SUBSTANCE USE HISTORY: No reported family psychiatric. history of substance use. SOCIAL HISTORY: Patient was born and raised in Patient was born and raised in Patient was born and raised in [place], [place]. The patient currently lives with his and 2 stepchildren. He has been to her for 6 years. They have been together for 17 years. He is currently employed by [employer] and works in [employer]. He graduated 12th grade. 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 His father was a Episcopalian it desktop support technician. MENTAL STATUS EXAM: General Appearance: Patient appears to be stated age is alert, directable, and attempts to cooperate. Patient appears to have slightly disheveled hygiene and grooming. Behavior: Patient is seated without any agitated behavior. Eye contact is appropriate. Speech: Patient's speech is fluent and nonpressured. Mood/Affect: Patient reports their mood is ok , affect is congruent and constricted Suicidality/Homicidality: Patient is denying any suicidal or homicidal ideation. Perceptions: Patient denies any visual hallucinations and denies any auditory hallucinations Though content/process: There is no evidence of any delusional thought content and thought process is linear and goal-directed. concrete. Memory and concentration: AOX3, grossly intact for the purposes of this session. Can spell "WORLD" backwards Judgment and insight: poor/impuslive. STRENGTHS/WEAKNESSES: strength is that patient is resilient. Weakness is that patient has poor judgment and is impulsive INTELLECT: average IMPRESSIONS: suicide attempt by overdose of psychotropic medications. Major depressive disorder, recurrent, severe, without psychotic features Alcohol use disorder Tobacco use disorder Cannabis use disorder PLAN: -Patient is admitted under voluntary status to MHU for stabilization of psychiatric symptoms and safety. Patient has signed adult voluntary form and medication consent and is placed in patient's chart. -Medications : melatonin 10mg qhs for sleep, increase trazadone 200mg qhs for sleep, librium 20mg tid with plan to taper down Zoloft 50mg daily for mood/anxiety, naltrexone 50mg daily for alcohol cravings -Ativan and Haldol PRN for agitation/aggression -Started thiamine, MVM for etoh use -CIWA protocol with Ativan PRN for ETOH withdrawal -Patient was counselled on substance abuse and desired to cut back on use -Patient was informed of the risks, benefits and side effects of the medication and patient verbally consented to taking the medications. -Internal Medicine consult to perform medical evaluation and physical. -NRT -nicotine patch -SW on board for discharge planning. Encourage patient to participate in groups to work on coping skills. Patient refusing inpatient rehab, will consider outpatient rehab. 06/10/23 12:23
[2023-06-10] MEDS: SERTRALINE 50 MG TAB PO SCH (12:34)
[2023-06-10] MEDS: NALTREXONE HCL 50 MG TAB PO SCH (12:34)
[2023-06-10 12:37] LABS: Glucose,Whole Blood 101 mg/dL (70-110)
--- NOTE | 2023-06-10 13:56 | P.MDCNMH ---
History of Present Illness H&P Date: 06/10/23 This is a 37-year-old male who was initially admitted to the medicine floor with EtOH intoxication with suicidal ideation and depression. Patient evaluated by psychiatry meeting criteria for inpatient psych and was maintained on CIWA protocol. Patient not requiring IV Ativan and was continued on Librium taper doing well with no reports of chest pain, shortness of breath, or active withdrawals. Patient admitted to depression as he reports he is going through a divorce and having a lot of social stressors in his life. Patient does follow with Dr. Richter in the outpatient setting with a past medical history of diabetes mellitus, hypertension, anxiety with depression, smoking with vaping, daily heavy drinking and marijuana. Patient denies any other illicit drug use or IV use. Patient was medically stable and discharged from the medical unit and transferred to [facility] for further psychiatric care. REVIEW OF SYSTEMS: CONSTITUTIONAL: No fever, no malaise, no fatigue. HEENT: No recent visual problems or hearing problems. Denied any sore throat. CARDIOVASCULAR: No chest pain, orthopnea, PND, no palpitations, no syncope. PULMONARY: No shortness of breath, no cough, no hemoptysis. GASTROINTESTINAL: No diarrhea, no nausea, no vomiting, no abdominal pain. NEUROLOGICAL: No headaches, no weakness, no numbness. HEMATOLOGICAL: Denies any bleeding or petechiae. GENITOURINARY: Denies any burning micturition, frequency, or urgency. MUSCULOSKELETAL/RHEUMATOLOGICAL: Denies any joint pain, swelling, or any muscle pain. ENDOCRINE: Denies any polyuria or polydipsia. The rest of the 14-point review of systems is negative. PHYSICAL EXAMINATION: GENERAL: The patient is alert and oriented x3, not in any acute distress. Well developed, well nourished. HEENT: Pupils are round and equally reacting to light. EOMI. No scleral icterus. No conjunctival pallor. Normocephalic, atraumatic. No pharyngeal erythema. No thyromegaly. CARDIOVASCULAR: S1 and S2 present. No murmurs, rubs, or gallops. PULMONARY: Chest is clear to auscultation, no wheezing or crackles. ABDOMEN: Soft, nontender, nondistended, normoactive bowel sounds. No palpable organomegaly. MUSCULOSKELETAL: No joint swelling or deformity. EXTREMITIES: No cyanosis, clubbing, or pedal edema. NEUROLOGICAL: Gross neurological examination did not reveal any focal deficits. SKIN: No rashes. Assessment: Suicidal ideation with attempted overdose Acute alcohol intoxication with acute alcohol withdrawal, improved maintained on Librium taper History of continued ongoing nicotine dependence and vaping THC use Daily alcohol use History of anxiety/depression History of diabetes mellitus, type II, [id number] Hypertension history Plan: Patient has been transferred to the [facility] unit for further psychiatric care and evaluation. Patient has been up and attending group therapy sessions and compliant with medications. Continue monitoring Accu-Cheks before meals and at bedtime and continue current home medications that have been reviewed and resumed as appropriate Continue Librium taper Patient instructed to follow-up with primary care provider once discharged from psychiatric care. Thank you kindly for this consultation. The impression and plan of care has been dictated by Grace Florez, Nurse Practitioner as directed. Dr. Alpesh MD I have performed a history and examination and MDM of this patient, discussed the same with the dictator, and agree with the dictator's assessment and plan as written ,documented as a scribe. Based on total visit time, I have performed more than 50% of the visit. Past Medical History Past Medical History: Diabetes Mellitus, Hypertension Additional Past Medical History / Comment(s): pancreatitis History of Any Multi-Drug Resistant Organisms: None Reported Past Surgical History: No Surgical Hx Reported Past Anesthesia/Blood Transfusion Reactions: No Reported Reaction Past Psychological History: Anxiety, Depression Smoking Status: Current every day smoker, Vaper Past Alcohol Use History: Daily, Heavy Additional Past Alcohol Use History / Comment(s): Reports he drinks 3-5 tall (25oz) beers daily and a pint of liquor. Reports heavier drinking on the weekends. Past Drug Use History: Marijuana Additional Drug Use History / Comment(s): states he smokes marijuana "every other day." - Past Family History Father Family Medical History: Hypertension Medications and Allergies Home Medications Medication Instructions Recorded Confirmed Type metFORMIN HCL [Glucophage] 500 mg PO BID 06/07/23 06/09/23 History Acetaminophen Tab [Tylenol] 650 mg PO Q6HR PRN tab 06/09/23 06/09/23 Rx Famotidine [Pepcid] 20 mg PO BID tab 06/09/23 06/09/23 Rx INSULIN ASPART (NovoLOG) [NovoLOG 0 unit SQ ACHS each 06/09/23 06/09/23 Rx (formulary)] Nicotine 14Mg/24Hr Patch [Habitrol] 1 patch TRANSDERM DAILY patch 06/09/2311/23 Rx Thiamine [Vitamin B-1] 100 mg PO DAILY tab 06/09/23 06/09/23 Rx chlordiazePOXIDE HCl [Librium] 25 mg PO TID #6 cap 06/09/23 06/09/23 Rx traZODone HCL [Desyrel] 150 mg PO HS PRN tab 06/09/23 06/09/23 Rx Allergies Allergy/AdvReac Type Severity Reaction Status Date / Time No Known Allergies Allergy Verified 06/07/23 10:45 Physical Exam Vitals: Vital Signs Temp Pulse Resp BP Pulse Ox 06/09/23 21:15 88 18 144/91 06/09/23 18:53 98.2 F 91 16 129/93 99 Intake and Output 06/09/23 06/10/23 06/10/23 22:59 06:59 14:59 Other: Weight 79.379 kg 74.389 kg Cranial Nerve Examination - Cranial Nerves Cranial Nerve I- Olfactory: Intact Cranial Nerve II- Optic: Intact Cranial Nerve III- Oculomotor: Intact Cranial Nerve IV- Trochlear: Intact Cranial Nerve V- Trigeminal: Intact Cranial Nerve - Abducens: Intact Cranial Nerve VII- Facial: Intact Cranial Nerve VIII- Auditory: Intact Cranial Nerve IX- Glossopharyngeal: Intact Cranial Nerve X- Vagus: Intact Cranial Nerve XI- Accessory: Intact Cranial Nerve XII- Hypoglossal: Intact Results Labs: Abnormal Lab Results - Last 24 Hours (Table) 06/09/23 06/10/23 06/10/23 Range/Units 20:11 07:43 07:46 POC Glucose (mg/dL) 159 H 126 H (70-110) mg/dL Hemoglobin A1c 6.4 H (<=6.0) % Assessment and Plan Time with Patient: Less than 30
[2023-06-10 17:52] LABS: Glucose,Whole Blood 139 mg/dL (70-110)
[2023-06-10 20:04] LABS: Glucose,Whole Blood 214 mg/dL (70-110)
[2023-06-10] MEDS: MELATONIN 5 MG TABLET PO SCH (20:54)
[2023-06-10] MEDS: traZODone HCL 100 MG TAB PO SCH (20:54)
[2023-06-11 08:03] LABS: Glucose,Whole Blood 172 mg/dL (70-110)
[2023-06-11] MEDS ORDERED: chlordiazePOXIDE 25 MG CAP PO SCH (09:00)
--- NOTE | 2023-06-11 12:43 | P.PN ---
Progress Note - Text Progress Note Date: 06/11/23 Interval History: Patient was seen wandering the hallways and was directable and agreeable to demarcus valle with editorial writer in the office. Patient states his mood is pretty good today. States he had great sleep last night. Claims he does not have any anxiety. Patient is going to groups, and interacting with his peers on the unit. His appetite is good. Patient does not offer any other complaints At this time patient denies any suicidal or homical ideations, intent or plan. Patient denies any auditory, visual hallucinations and denies any paranoia or delusions. Patient denies any side effects from the medications and has been compliant with meds. MENTAL STATUS EXAM: General Appearance: Patient appears to be stated age is alert, directable, and attempts to cooperate. Patient appears to have fair hygiene and grooming Behavior: Patient is seated without any agitated behavior. Eye contact is appro priate. Speech: Patient's speech is fluent and nonpressured. Mood/Affect: Patient reports their mood is improving mildly , affect is congruent and constricted. improving mildly Suicidality/Homicidality: Patient is denying any suicidal or homicidal ideation. Perceptions: Patient denies any visual hallucinations and denies any auditory hallucinations Though content/process: There is no evidence of any delusional thought content and thought process is linear and goal-directed. concrete. Memory and concentration: AOX3, grossly intact for the purposes of this session. Judgment and insight: poor/impuslive. Mildly improving IMPRESSIONS: suicide attempt by overdose of psychotropic medications. Major depressive disorder, recurrent, severe, without psychotic features Alcohol use disorder Tobacco use disorder Cannabis use disorder PLAN: -Patient is admitted under voluntary status to MHU for stabilization of psychiatric symptoms and safety. Patient has signed adult voluntary form and medication consent and is placed in patient's chart. -Medications : melatonin 10mg qhs for sleep, trazadone 200mg qhs for sleep, decrease librium with plan to taper down last dose wednesday morning for etoh wit hdrawal. increase Zoloft 100mg qhs for mood/anxiety, naltrexone 50mg daily for alcohol cravings -Ativan and Haldol PRN for agitation/aggression -thiamine, MVM for etoh use -CIWA protocol with Ativan PRN for ETOH withdrawal -NRT -nicotine patch -SW on board for discharge planning. Encourage patient to participate in groups to work on coping skills. Patient refusing inpatient rehab, will consider ou tpatient rehab. Likely discharge home Wednesday, if patient continues to improves over the weekend.
[2023-06-11 12:53] LABS: Glucose,Whole Blood 150 mg/dL (70-110)
[2023-06-11 17:38] LABS: Glucose,Whole Blood 175 mg/dL (70-110)
[2023-06-11 19:56] LABS: Glucose,Whole Blood 92 mg/dL (70-110)
[2023-06-11] MEDS: SERTRALINE 100 MG TAB PO SCH (20:38)
[2023-06-12 07:55] LABS: Glucose,Whole Blood 155 mg/dL (70-110)
[2023-06-12 12:46] LABS: Glucose,Whole Blood 133 mg/dL (70-110)
--- NOTE | 2023-06-12 16:19 | P.PN ---
Progress Note - Text Progress Note Date: 06/12/23 Interval History: Patient was seen in the activity room and was agreeable to speak with this wri ter. He discusses the circumstances leading to overdosing including his dog recently being injured. He admits to having recurrent struggles with alcohol and states that he would like to pursue outpatient rehab. He says he attended Alcoholics Anonymous once in the past but felt that the crowd was not his style. He would like to try Alcoholics Anonymous again. He denies craving currently. He denies alcohol withdrawal symptoms currently and is agreeable with continuing the Librium taper. He reports that his mood is "fine ". He endorses sleeping and eating well and tolerating the medications. At this time patient denies any suicidal or homicidal ideation, intent or plan. Patient denies any auditory, visual hallucinations and denies any paranoia or delusions. Patient denies any side effects from the medications and has been compliant with meds. MENTAL STATUS EXAM: General Appearance: Patient appears to be stated age is alert, directable, and attempts to cooperate. Patient appears to have fair hygiene and grooming Behavior: Patient is seated without any agitated behavior. Eye contact is appropriate. Speech: Patient's speech is fluent and nonpressured. Mood/Affect: Patient reports their mood is improving mildly , affect is congruent and constricted. improving mildly Suicidality/Homicidality: Patient is denying any suicidal or homicidal ideation. Perceptions: Patient denies any visual hallucinations and denies any auditory hallucinations Though content/process: There is no evidence of any delusional thought content and thought process is linear and goal-directed. concrete. Memory and concentration: AOX3, grossly intact for the purposes of this session. Judgment and insight: poor/impulsive. Mildly improving IMPRESSIONS: suicide attempt by overdose of psychotropic medications. Major depressive disorder, recurrent, severe, without psychotic features Alcohol use disorder Tobacco use disorder Cannabis use disorder PLAN: -Patient is admitted under voluntary status to MHU for stabilization of psychiatric symptoms and safety. Patient has signed adult voluntary form and medication consent and is placed in patient's chart. -Medications : melatonin 10mg qhs for sleep, trazadone 200mg qhs for sleep, decrease librium to 10 mg BID for tomorrow. Zoloft 100mg qhs for mood/anxiety, naltrexone 50mg daily for alcohol cravings -Ativan and Haldol PRN for agitation/aggression -thiamine, MVM for etoh use -CIWA protocol with Ativan PRN for ETOH withdrawal - scoring 0-1. Will dc tomorrow -NRT -nicotine patch -SW on board for discharge planning. Encourage patient to participate in groups to work on coping skills. Patient refusing inpatient rehab, will consider outpatient rehab. Likely discharge home Wednesday, if patient continues to improves over the weekend.
[2023-06-12 21:01] LABS: Glucose,Whole Blood 258 mg/dL (70-110)
[2023-06-12 21:01] LABS: Glucose,Whole Blood 248 mg/dL (70-110)
[2023-06-13 07:29] VITALS: RESP 14
[2023-06-13 07:56] LABS: Glucose,Whole Blood 145 mg/dL (70-110)
[2023-06-13 12:53] LABS: Glucose,Whole Blood 153 mg/dL (70-110)
[2023-06-13 17:38] LABS: Glucose,Whole Blood 175 mg/dL (70-110)
--- NOTE | 2023-06-13 18:14 | P.PN ---
Progress Note - Text Progress Note Date: 06/13/23 Interval History: Patient was seen in the interview room and was agreeable to speak with this wr iter. Today he discussed the relationship with his that has also contributed to feelings of stress and inability to cope with daily life. He was encouraged to communicate his thoughts to her when they're both calm. Discussed the cycle of embarrassment and guilt leading to alcohol use but patient is not fully engaged in the conversation. He admits that alcohol has caused numerous issues in his life. However, he does not expressed interest in rehab at this time. He denies craving for alcohol and denies having any withdrawal symptoms at this time. He is agreeable with proceeding with Librium taper. He states that his mood is "fine ". He endorses fair sleep (although it was documented to be interrupted by staff) and appetite. He denies other concerns. Patient has not needed any when necessary medications. At this time patient denies any suicidal or homicidal ideation, intent or plan. Patient denies any auditory, visual hallucinations and denies any paranoia or delusions. Patient denies any side effects from the medications and has been compliant with meds. Vital Signs Temp 97.1 F L 06/13/23 06:45 Pulse 56 L 06/13/23 06:45 Resp 14 06/13/23 06:45 BP 94/57 06/13/23 06:45 Pulse Ox 99 06/09/23 18:53 FiO2 Intake & Output 06/12/23 06/13/23 06/13/23 18:59 06:59 18:59 Weight 73.8 kg MENTAL STATUS EXAM: General Appearance: Patient appears to be stated age is alert, directable, and attempts to cooperate. Patient appears to have fair hygiene and grooming Behavior: Patient is seated without any agitated behavior. Eye contact is appropriate. Speech: Patient's speech is fluent and nonpressured. Mood/Affect: Patient reports their mood is improving , affect is congruent and constricted. Suicidality/Homicidality: Patient is denying any suicidal or homicidal ideation. Perceptions: Patient denies any visual hallucinations and denies any auditory hallucinations Though content/process: There is no evidence of any delusional thought content and thought process is linear and goal-directed. Memory and concentration: AOX3, grossly intact for the purposes of this session. Judgment and insight: poor/impulsive. Mildly improving IMPRESSIONS: suicide attempt by overdose of psychotropic medications. Major depressive disorder, recurrent, severe, without psychotic features Alcohol use disorder Tobacco use disorder Cannabis use disorder PLAN: -Patient is admitted under voluntary status to MHU for stabilization of psychiatric symptoms and safety. Patient has signed adult voluntary form and medication consent and is placed in patient's chart. -Medications : melatonin 10mg qhs for sleep, trazadone 200mg qhs for sleep, discontinue Librium tomorrow. Zoloft 100mg qhs for mood/anxiety, naltrexone 50mg daily for alcohol cravings -Ativan and Haldol PRN for agitation/aggression -thiamine, MVM for etoh use -Discontinue CIWA protocol- scoring 0 -NRT -nicotine patch -SW on board for discharge planning. Encourage patient to participate in groups to work on coping skills. Patient refusing inpatient rehab, will consider outpatient rehab. Likely discharge home Wednesday, if patient continues to improves over the weekend.
[2023-06-13 20:19] LABS: Glucose,Whole Blood 128 mg/dL (70-110)
[2023-06-14 07:33] VITALS: BP 97/59; PULSE 58; TEMP 97.9
[2023-06-14 08:01] LABS: Glucose,Whole Blood 135 mg/dL (70-110)
[2023-06-14] MEDS: MAGNESIUM HYDROXIDE 2,400 MG/30 ML CUP PO PRN (09:27)
--- NOTE | 2023-06-14 10:17 | P.DS ---
Providers Date of admission: 06/09/23 18:51 Expected date of discharge: 06/14/23 Attending physician: Mitchel Antonio MD Consults: 06/09/23 18:27 Consult Physician Routine Consulting Provider: Geovanni Richter Consult Reason/Comments: H&P Do you want consulting provider notified?: Yes Primary care physician: April Blakely - Discharge Diagnosis(es) (1) Suicide attempt by other psychotropic drug overdose Current Visit: Yes Status: Acute Priority: High (2) Major depressive disorder without psychotic features Current Visit: Yes Status: Acute Priority: High (3) Alcohol use disorder Current Visit: Yes Status: Acute Priority: Medium (4) Nicotine dependence Current Visit: Yes Status: Acute Priority: Low (5) Cannabis use disorder Current Visit: Yes Status: Acute Priority: Medium Hospital Course: Admission HPI: Admission note was completed by content writer "Patient presented to the hospital on 06/07. Benefits Processor was consulted for SI and OD. Writers original consult stated, "States he took 13 pills of Vistaril in an attempt to overdose because him and his were fighting about him drinking. His is also upset that he sold the TV that he had but, threatening divorce. States his mood has been depressed for the past couple weeks. Patient was drinking heavily was in his garage, took the pills, began to get scared and called the police to bring him to the hospital. Patient claims that his anxiety is pretty bad, and his sleep and appetite is pretty good. Patient states that his does not know that he is in the hospital at this time, and asked if he could reach out to her. At this time patient denies any suicidal or homical ideations, intent or plan. Patient denies any auditory, visual hallucinations and denies any paranoia or delusions. Patients admits to using Marijuana. The patient does report a significant history of substance abuse. He states that he smokes 1 pack per day of tobacco. Furthermore, the patient's drug of choice is alcohol, with his last drink being Wednesday. He reports drinking 9-12 alcoholic beverages per day during the work week and more than that over the weekends. He denies history of withdrawal symptoms including tremors however denies any history of seizures or delirium tremens. The patient has had a rehab stays in [place] a few years ago, and most recently [place]." Upon todays interview, patient states that he is ok, and he is attending groups. States his anxiety is good, as well as his mood. Appetite is good, not sleeping well, content writer spoke with patient about adjusting his medications, patient agreeable. Offered naltraxone to patient for his alcohol cravings, patient agreeable. Spoke with patient about rehab upon discharge, patient stated inpatient rehab does not work for him, and he will consider outpatient rehab and attend AA meetings. Patient denies any suicidal or homicidal ideations intent or plan. At this time patient denies any auditory or visual hallucinations. Patient denies any flight of ideas racing thoughts and increased in goal directed behavior. " Hospital course: Upon admission to the unit patient was directable and agreeable to commence treatment and signed adult voluntary form. Patient got along well with other patients on the unit and followed unit protocol. Patient was compliant with the medications and denied any side effects throughout hospital course. Patient was started on melatonin and increase the dose of 10 mg nightly for sleep, trazodone 200 mg nightly for sleep/mood, Zoloft 100 mg nightly for mood/anxiety, naltrexone 50 mg daily for alcohol cravings. Patient was placed on CIWA protocol with as needed Ativan for alcohol withdrawal. Patient was also on Librium scheduled and was tapered off for alcohol withdrawal. Patient spoke of his stressors and engaged in therapy both group and individual. Patient was also seen by medical team for history and physical exam. Throughout the course of the hospitalization patient gradually improved with regards to mood, anxiety, withdrawal symptoms, sleep and returned back to their baseline level of functioning. On the day of discharge patient denied any suicidal or homicidal ideations intent or plan denied any auditory or visual hallucinations. Patient endorsed wanting to live for his health and family. The patient denied any access to guns or weapons. Patient denied any paranoia and did not endorse any delusions. Patient does have a significant history of substance abuse and was counseled on abstaining from all substances including alcohol and marijuana. Patient was offered however declined inpatient substance-abuse rehab. Patient elected to do outpatient substance use treatment program through [facility]. Patient was also counseled on the medications and need for regular compliance and was encouraged to follow-up with their outpatient appointment for mental health and also for primary care. Prior to discharge a family meeting will be arranged by social service assistant to answer any questions and ensure safety upon discharge. Mental status exam: General Appearance: Patient appears to be tall, stated age is alert, pleasant, and cooperative. Patient is in no acute distress and has improved hygiene and grooming Behavior: Patient is calmly seated without any agitated behavior. Speech: Patient's speech is fluent and nonpressured. Mood/Affect: Patient reports their mood is "better", affect is congruent and euthymic. Suicidality/Homicidality: Patient denies having any suicidal or homicidal ideation intent or plan. Perceptions: Patient denies any auditory or visual hallucinations. Though content/process: There is no evidence of any delusional thought content and thought process is linear and goal-directed. More future oriented Memory and concentration: AOX3, grossly intact for the purposes of this session. Can spell "WORLD" backwards correctly. Judgment and insight: Chronically poor, however has improved with guarded prognosis Impression: suicide attempt by overdose of psychotropic medications. Major depressive disorder, recurrent, severe, without psychotic features Alcohol use disorder Nicotine dependence Cannabis use disorder Plan: -Continue with discharge today as patient has improved and stabilized psychiatrically and is not currently an imminent threat to himself and/or others. Patient will remain at chronically elevated risk for harm to self and/or others due to his impulsivity and polysubstance abuse. -Continue medications: Melatonin 10 mg nightly for sleep, trazodone 200 mg nightly for sleep/mood, Zoloft 100 mg nightly for mood/anxiety, naltrexone 50 mg p.o. daily for alcohol cravings. Librium was discontinued. -Patient was counseled on the need for medication compliance and appropriate follow-up at mental health and also primary care for medical issues. Patient verbalized understanding and agreed. -Social work to arrange for and conduct family meeting to ensure safety upon discharge and answer any questions/concerns. Social work also to arrange for patients follow up appointments with [facility] for psychiatric care along with follow up with primary care provider. -Patient counseled on abstaining from recreational drugs and marijuana and alcohol. Was informed/educated on the adverse effects on their physical and mental health. Patient verbally agreed and understood. Patient was offered substance abuse treatment however declined at this time. -Patient was instructed to return to the hospital or seek immediate medical care if their psychiatric or medical symptoms do worsen or reoccur. Allergies Allergy/AdvReac Type Severity Reaction Status Date / Time No Known Allergies Allergy Verified 06/07/23 10:45 Laboratory Results POC Glucose (mg/dL) 135 mg/dL (70-110) H 06/14/23 08:00 POC Glu Head Char Filter Tank Tender ID Ally Gray 06/14/23 08:[address] Glu mg/dL 137 mg/dL 06/10/23 07:46 Hemoglobin A1c 6.4 % (<=6.0) H 06/10/23 07:46 TSH 1.400 mIU/L (0.465-4.680) 06/10/23 07:46 Vital Signs Temp 97.9 F 06/14/23 06:41 Pulse 58 L 06/14/23 06:41 Resp 14 06/14/23 06:41 BP 97/59 06/14/23 06:41 Pulse Ox 99 06/09/23 18:53 FiO2 Intake & Output 06/13/23 06/14/23 06/14/23 18:59 06:59 18:59 Weight 73.8 kg Patient Condition at Discharge: Stable Plan - Discharge Summary Discharge Rx Participant: Yes New Discharge Prescriptions: New Nicotine 14Mg/24Hr Patch [Habitrol] 1 patch TRANSDERM DAILY 14 Days #14 patch INSULIN ASPART (NovoLOG) [NovoLOG (formulary)] 0 unit SQ ACHS each Sertraline [Zoloft] 100 mg PO HS 30 Days #30 tab Folic Acid 1 mg PO DAILY 30 Days #30 tab Melatonin 10 mg PO HS 30 Days #60 tab Multivitamins, Thera [Multivitamin (formulary)] 1 each PO DAILY 30 Days #30 tab Naltrexone HCl [Revia] 50 mg PO DAILY 30 Days #30 tab traZODone HCL 200 mg PO HS 30 Days #60 tablet Thiamine [Vitamin B-1] 100 mg PO DAILY 30 Days #30 tab Continue Famotidine [Pepcid] 20 mg PO BID 30 Days #60 tab Acetaminophen Tab [Tylenol] 650 mg PO Q6HR PRN tab PRN Reason: Mild Pain Or Fever > 100.5 metFORMIN HCL [Glucophage] 500 mg PO BID 30 Days #60 tab Discontinued traZODone HCL [Desyrel] 150 mg PO HS PRN tab PRN Reason: Insomnia Nicotine 14Mg/24Hr Patch [Habitrol] 1 patch TRANSDERM DAILY patch Thiamine [Vitamin B-1] 100 mg PO DAILY tab chlordiazePOXIDE HCl [Librium] 25 mg PO TID #6 cap INSULIN ASPART (NovoLOG) [NovoLOG (formulary)] 0 unit SQ ACHS each Discharge Medication List Acetaminophen Tab [Tylenol] 650 mg PO Q6HR PRN tab 06/09/23 [Rx] Famotidine [Pepcid] 20 mg PO BID 30 Days #60 tab 06/14/23 [Rx] Folic Acid 1 mg PO DAILY 30 Days #30 tab 06/14/23 [Rx] INSULIN ASPART (NovoLOG) [NovoLOG (formulary)] 0 unit SQ ACHS each 06/14/23 [Rx] Melatonin 10 mg PO HS 30 Days #60 tab 06/14/23 [Rx] Multivitamins, Thera [Multivitamin (formulary)] 1 each PO DAILY 30 Days #30 tab 06/14/23 [Rx] Naltrexone HCl [Revia] 50 mg PO DAILY 30 Days #30 tab 06/14/23 [Rx] Nicotine 14Mg/24Hr Patch [Habitrol] 1 patch TRANSDERM DAILY 14 Days #14 patch 06/14/23 [Rx] Sertraline [Zoloft] 100 mg PO HS 30 Days #30 tab 06/14/23 [Rx] Thiamine [Vitamin B-1] 100 mg PO DAILY 30 Days #30 tab 06/14/23 [Rx] metFORMIN HCL [Glucophage] 500 mg PO BID 30 Days #60 tab 06/14/23 [Rx] traZODone HCL 200 mg PO HS 30 Days #60 tablet 06/14/23 [Rx] Activity/Diet/Wound Care/Special Instructions: Avoid the use of street drugs and alcohol. Take all medications as prescribed. When you are in need of refills on your medications, please contact your medical provider and/or outpatient psychiatrist/provider to have this done. Please go to your scheduled outpatient appointment for aftercare treatment. If symptoms return or become worse, call the crisis line at and/or go to the nearest emergency room for evaluation. National Suicide Hotline 549. Discharge Disposition: HOME SELF-CARE
[2023-06-14 12:51] LABS: Glucose,Whole Blood 211 mg/dL (70-110)
== END 2023-06-14 15:56 | disposition home or self-care (01) | DRG 751 ==
LOC: 3MHU 18:51
PROVIDERS: ADMIT Psychiatry & Neurology Psychiatry; ATTEND Psychiatry & Neurology Psychiatry
DX: F33.2 Major depressive disorder, recurrent severe without psychotic features (principal); E11.9 Type 2 diabetes mellitus without complications; F10.10 Alcohol abuse, uncomplicated; I10 Essential (primary) hypertension; Z79.4 Long term (current) use of insulin; F12.10 Cannabis abuse, uncomplicated; F41.9 Anxiety disorder, unspecified; T43.592D Poisoning by other antipsychotics and neuroleptics, intentional self-harm, subsequent encounter; F17.210 Nicotine dependence, cigarettes, uncomplicated; Z71.6 Tobacco abuse counseling; Z79.84 Long term (current) use of oral hypoglycemic drugs; Z79.899 Other long term (current) drug therapy; Z71.41 Alcohol abuse counseling and surveillance of alcoholic; Z71.51 Drug abuse counseling and surveillance of drug abuser
CPT/HCPCS: 83036; 84443

== ENCOUNTER 2024-04-18 12:07 | Observation (INO) | payer BC, OTHER ==
--- NOTE | 2024-04-18 13:23 | ED ---
Abdominal Pain HPI - General Chief Complaint: Abdominal Pain Stated Complaint: Abd pain Time Seen by Provider: 04/18/24 12:22 Source: patient, RN notes reviewed Mode of arrival: ambulatory Limitations: no limitations - History of Present Illness Initial Comments: 38-year-old male presents emergency department with chief complaint of abdominal pain. Patient states started last day or so. Patient does admit that he is a daily drinker he states he usually drinks 3 beers a day but states he was drinking some vodka recently. Patient states that he has mid abdominal pain consistent with his prior pancreatitis he does have moderate pain, nausea no dysuria no chest pain or shortness of breath. - Related Data Previous Rx's Medication Instructions Recorded Acetaminophen Tab [Tylenol] 650 mg PO Q6HR PRN tab 06/09/23 Famotidine [Pepcid] 20 mg PO BID 30 Days #60 tab 06/14/23 Folic Acid 1 mg PO DAILY 30 Days #30 tab 06/14/23 INSULIN ASPART (NovoLOG) [NovoLOG 0 unit SQ ACHS each 06/14/23 (formulary)] Melatonin 10 mg PO HS 30 Days #60 tab 06/14/23 Multivitamins, Thera [Multivitamin 1 each PO DAILY 30 Days #30 tab 06/14/23 (formulary)] Naltrexone HCl [Revia] 50 mg PO DAILY 30 Days #30 tab 06/14/23 Nicotine 14Mg/24Hr Patch [Habitrol] 1 patch TRANSDERM DAILY 14 Days 06/14/23 #14 patch Sertraline [Zoloft] 100 mg PO HS 30 Days #30 tab 06/14/23 Thiamine [Vitamin B-1] 100 mg PO DAILY 30 Days #30 tab 06/14/23 metFORMIN HCL [Glucophage] 500 mg PO BID 30 Days #60 tab 06/14/23 traZODone HCL 200 mg PO HS 30 Days #60 tablet 06/14/23 Allergies Allergy/AdvReac Type Severity Reaction Status Date / Time No Known Allergies Allergy Verified 04/18/24 12:32 Review of Systems ROS Statement: Those systems with pertinent positive or pertinent negative responses have been documented in the HPI. ROS Other: All systems not noted in ROS Statement are negative. Past Medical History Past Medical History: Diabetes Mellitus, Hypertension Additional Past Medical History / Comment(s): pancreatitis History of Any Multi-Drug Resistant Organisms: None Reported Past Surgical History: No Surgical Hx Reported Past Anesthesia/Blood Transfusion Reactions: No Reported Reaction Past Psychological History: Anxiety, Depression Smoking Status: Current every day smoker, Vaper Past Alcohol Use History: Daily, Heavy Past Drug Use History: Marijuana - Past Family History Father Family Medical History: Hypertension General Exam Limitations: no limitations General appearance: alert, in no apparent distress Head exam: Present: atraumatic, normocephalic, normal inspection Eye exam: Present: normal appearance, PERRL, EOMI. Absent: scleral icterus, conjunctival injection, periorbital swelling ENT exam: Present: normal exam, normal oropharynx, mucous membranes moist Neck exam: Present: normal inspection, full ROM. Absent: tenderness, meningismus, lymphadenopathy Respiratory exam: Present: normal lung sounds bilaterally. Absent: respiratory distress, wheezes, rales, rhonchi, stridor Cardiovascular Exam: Present: normal rhythm, tachycardia, normal heart sounds. Absent: systolic murmur, diastolic murmur, rubs, gallop, clicks GI/Abdominal exam: Present: soft, tenderness, normal bowel sounds. Absent: distended, guarding, rebound, rigid Course Vital Signs 04/18/24 12:27 Temperature 98.7 F Pulse Rate 116 H Respiratory 18 Rate Blood Pressure 146/90 O2 Sat by Pulse 100 Oximetry Medical Decision Making - Medical Decision Making Was pt. sent in by a medical professional or institution ([facility], [employer], urgent care, hospital, or fdc...) When possible be specific @ -No Did you speak to anyone other than the patient for history (EMS, parent, family, police, friend...)? What history was obtained from this source @ -No Did you review nursing and triage notes (agree or disagree)? Why? @ -I reviewed and agree with nursing and triage notes Were old charts reviewed (outside hosp., previous admission, EMS record, old EK G, old radiological studies, urgent care reports/EKG's, fdc records)? Report findings @ -No old charts were reviewed Differential Diagnosis (chest pain, altered mental status, abdominal pain women, abdominal pain men, vaginal bleeding, weakness, fever, dyspnea, syncope, headache, dizziness, GI bleed, back pain, seizure, CVA, palpatations, mental health, musculoskeletal)? @ -Differential Abdominal Pain Men: Appendicitis, cholecystitis, diverticulosis, ischemic bowel, pancreatitis, hepa titis, UTI, gastroenteritis, AAA, incarcerated hernia, bowel obstruction, constipation, inflammatory bowel, hepatitis, peptic ulcer disease, splenic infarction, perforated viscus, testicular torsion, this is not meant to be an all-inclusive list EKG interpreted by me (3pts min.). @ -None X-rays interpreted by me (1pt min.). @ -None done CT interpreted by me (1pt min.). @ -None done U/S interpreted by me (1pt. min.). @ -None done What testing was considered but not performed or refused? (CT, X-rays, U/S, labs)? Why? @ -None What meds were considered but not given or refused? Why? @ -None Did you discuss the management of the patient with other professionals (professionals i.e. , PA, [employer], lab, RT, psych nurse, social group worker, restaurant recruiter, teacher, retail loan officer, pillowcase cutter)? Give summary @ -Felipe with sound physician group for admission Was smoking cessation discussed for >3mins.? @ -No Was critical care preformed (if so, how long)? @ -No Were there social determinants of health that impacted care today? How? (Homelessness, low income, unemployed, alcoholism, drug addiction, transporta tion, low edu. Level, literacy, decrease access to med. care, care home, rehab)? @ -No Was there de-escalation of care discussed even if they declined (Discuss DNR or withdrawal of care, Hospice)? DNR status @ -No What co-morbidities impacted this encounter? (DM, HTN, Smoking, COPD, CAD, Cancer, CVA, ARF, Chemo, Hep., AIDS, mental health diagnosis, sleep apnea, morbid obesity)? @ -Alcohol abuse Was patient admitted / discharged? Hospital course, mention meds given and route, prescriptions, significant lab abnormalities, going to OR and other pertinent info. @ -Admitted patient has increased abdominal pain acute chronic alcoholic pancreatitis alcohol level is 148 patient was placed on IV fluid bolus, maintenance fluids, analgesics, antiemetics patient will be placed on CIWA and Ativan withdrawal protocol Undiagnosed new problem with uncertain prognosis? @ -No Drug Therapy requiring intensive monitoring for toxicity (Heparin, Nitro, Insulin, Cardizem)? @ -No Were any procedures done? @ -No Diagnosis/symptom? @ -Alcohol abuse, acute alcohol pancreatitis Acute, or Chronic, or Acute on Chronic? @ -Acute Uncomplicated (without systemic symptoms) or Complicated (systemic symptoms)? @ -Complicated Side effects of treatment? @ -No Exacerbation, Progression, or Severe Exacerbation? @ -No Poses a threat to life or bodily function? How? (Chest pain, [place], [place], pneumonia, PE, COPD, DKA, ARF, appy, cholecystitis, CVA, Diverticulitis, Homicidal, Suicidal, threat to staff... and all critical care pts) @ -[Yes acute pancreatitis - Lab Data Result diagrams: 04/18/24 13:13 04/18/24 13:13 Lab Results 04/18/24 04/18/24 04/18/24 Range/Units 13:13 13:13 13:13 WBC 8.0 (3.8-10.6) k/uL RBC 5.68 (4.30-5.90) m/uL Hgb 16.5 (13.0-17.5) gm/dL Hct 50.9 (39.0-53.0) % MCV 89.5 (80.0-100.0) fL MCH 29.0 (25.0-35.0) pg MCHC 32.4 (31.0-37.0) g/dL RDW 12.9 (11.5-15.5) % Plt Count 161 (150-450) k/uL MPV 9.3 Neutrophils % 59 % Lymphocytes % 28 % Monocytes % 5 % Eosinophils % 6 % Basophils % 1 % Neutrophils # 4.7 (1.3-7.7) k/uL Lymphocytes # 2.3 (1.0-4.8) k/uL Monocytes # 0.4 (0-1.0) k/uL Eosinophils # 0.4 (0-0.7) k/uL Basophils # 0.1 (0-0.2) k/uL Sodium 135 L (137-145) mmol/L Potassium 4.4 (3.5-5.1) mmol/L Chloride 100 (98-107) mmol/L Carbon Dioxide 21 L (22-30) mmol/L Anion Gap 14 mmol/L BUN 4 L (9-20) mg/dL Creatinine 0.73 (0.66-1.25) mg/dL Est GFR (CKD-EPI)AfAm >90 (>60 ml/min/1.73 sqM) Est GFR (CKD-EPI)NonAf >90 (>60 ml/min/1.73 sqM) Glucose 130 H (74-99) mg/dL Plasma Lactic Acid Ruddy (0.7-2.0) mmol/L Calcium 10.8 H (8.4-10.2) mg/dL Magnesium 1.7 (1.6-2.3) mg/dL Total Bilirubin 0.7 (0.2-1.3) mg/dL AST 130 H (17-59) U/L ALT 96 H (4-49) U/L Alkaline Phosphatase 129 H (38-126) U/L Total Protein 7.8 (6.3-8.2) g/dL Albumin 5.1 H (3.5-5.0) g/dL Lipase 600 H (23-300) U/L Urine Color Light Yellow Urine Appearance Clear (Clear) Urine pH 5.5 (5.0-8.0) Ur Specific [place] 1.008 (1.001-1.035) Urine Protein Trace H (Negative) Urine Glucose (UA) Negative (Negative) Urine Ketones Negative (Negative) Urine Blood Negative (Negative) Urine Nitrite Negative (Negative) Urine Bilirubin Negative (Negative) Urine Urobilinogen <2.0 (<2.0) mg/dL Ur Leukocyte Esterase Negative (Negative) Serum Alcohol 148 mg/dL 04/18/24 Range/Units 13:13 WBC (3.8-10.6) k/uL RBC (4.30-5.90) m/uL Hgb (13.0-17.5) gm/dL Hct (39.0-53.0) % MCV (80.0-100.0) fL MCH (25.0-35.0) pg MCHC (31.0-37.0) g/dL RDW (11.5-15.5) % Plt Count (150-450) k/uL MPV Neutrophils % % Lymphocytes % % Monocytes % % Eosinophils % % Basophils % % Neutrophils # (1.3-7.7) k/uL Lymphocytes # (1.0-4.8) k/uL Monocytes # (0-1.0) k/uL Eosinophils # (0-0.7) k/uL Basophils # (0-0.2) k/uL Sodium (137-145) mmol/L Potassium (3.5-5.1) mmol/L Chloride (98-107) mmol/L Carbon Dioxide (22-30) mmol/L Anion Gap mmol/L BUN (9-20) mg/dL Creatinine (0.66-1.25) mg/dL Est GFR (CKD-EPI)AfAm (>60 ml/min/1.73 sqM) Est GFR (CKD-EPI)NonAf (>60 ml/min/1.73 sqM) Glucose (74-99) mg/dL Plasma Lactic Acid Ruddy 2.9 H* (0.7-2.0) mmol/L Calcium (8.4-10.2) mg/dL Magnesium (1.6-2.3) mg/dL Total Bilirubin (0.2-1.3) mg/dL AST (17-59) U/L ALT (4-49) U/L Alkaline Phosphatase (38-126) U/L Total Protein (6.3-8.2) g/dL Albumin (3.5-5.0) g/dL Lipase (23-300) U/L Urine Color Urine Appearance (Clear) Urine pH (5.0-8.0) Ur Specific [place] (1.001-1.035) Urine Protein (Negative) Urine Glucose (UA) (Negative) Urine Ketones (Negative) Urine Blood (Negative) Urine Nitrite (Negative) Urine Bilirubin (Negative) Urine Urobilinogen (<2.0) mg/dL Ur Leukocyte Esterase (Negative) Serum Alcohol mg/dL Disposition Clinical Impression: Alcoholic pancreatitis, Alcohol abuse Disposition: ADMITTED IP TO THIS HOSP Condition: Fair Referrals: None,Stated [Primary Care Provider] - 1-2 days Time of Disposition: 16:21
[2024-04-18 13:56] LABS: Basophils # (A) 0.1 k/uL (0-0.2); Basophils % (A) 1 %; Eosinophils # (A) 0.4 k/uL (0-0.7); Eosinophils % (A) 6 %; HCT 50.9 % (39.0-53.0); HGB 16.5 gm/dL (13.0-17.5); Lymphocytes # (A) 2.3 k/uL (1.0-4.8); Lymphocytes % (A) 28 %; MCHC 32.4 g/dL (31.0-37.0); MCV 89.5 fL (80.0-100.0); Mean Platelet Volume 9.3; Monocytes # (A) 0.4 k/uL (0-1.0); Monocytes % (A) 5 %; Neutrophils # (A) 4.7 k/uL (1.3-7.7); Neutrophils % (A) 59 %; Platelet Count 161 k/uL (150-450); RBC 5.68 m/uL (4.30-5.90); RDW 12.9 % (11.5-15.5)
[2024-04-18 13:58] LABS: Appearance,Urine Clear (Clear); Bilirubin,Urine Negative (Negative); Blood,Urine Negative (Negative); Color,Urine Light Yellow; Glucose,Urine (UA) Negative (Negative); Ketones,Urine Negative (Negative); Leukocyte Esterase,Urine Negative (Negative); Nitrite,Urine Negative (Negative); PH, Urine 5.5 (5.0-8.0); Protein,Urine Trace (Negative); Specific Gravity,Urine 1.008 (1.001-1.035); Urobilinogen,Urine <2.0 mg/dL (<2.0)
[2024-04-18 14:24] LABS: ALT 96 U/L (4-49); AST 130 U/L (17-59); African American GFR (CKD) >90 (>60 ml/min/1.73 sqM); Albumin 5.1 g/dL (3.5-5.0); Alkaline Phosphatase 129 U/L (38-126); Anion Gap 14 mmol/L; Blood Urea Nitrogen 4 mg/dL (9-20); Calcium 10.8 mg/dL (8.4-10.2); Carbon Dioxide 21 mmol/L (22-30); Chloride 100 mmol/L (98-107); Glucose 130 mg/dL (74-99); Lipase 600 U/L (23-300); Magnesium 1.7 mg/dL (1.6-2.3); Non-African American GFR(CKD) >90 (>60 ml/min/1.73 sqM); Potassium 4.4 mmol/L (3.5-5.1); Sodium 135 mmol/L (137-145); Total Bilirubin 0.7 mg/dL (0.2-1.3); Total Protein 7.8 g/dL (6.3-8.2)
[2024-04-18 14:49] LABS: Alcohol 148 mg/dL
[2024-04-18] MEDS: SODIUM CHLORIDE 0.9% 2,000 ML IV STA (15:24)
[2024-04-18] MEDS: ONDANSETRON 4 MG/2 ML VIAL IVP STA (15:24)
[2024-04-18] MEDS: KETOROLAC 15 MG/ML 1 ML VIAL IVP STA (16:14)
[2024-04-18] MEDS: HYDROmorphone 0.5 MG/0.5 ML SYRINGE IVP STA (16:15)
[2024-04-18] MEDS ORDERED: NALOXONE 0.4 MG/ML 1 ML VIAL IV PRN (16:17)
[2024-04-18] MEDS ORDERED: LORazepam 1 MG TAB PO PRN (16:19)
[2024-04-18] MEDS ORDERED: LORazepam 2 MG/ML INJ IV PRN ×3 (16:19)
[2024-04-18] MEDS ORDERED: LORazepam 0.5 MG TAB PO PRN (16:19)
[2024-04-18] MEDS: SODIUM CHLORIDE 0.9% 1,000 ML IV ONE (17:23)
--- NOTE | 2024-04-18 17:27 | P.HPIM ---
History of Present Illness H&P Date: 04/18/24 History of Presenting Illness: Patient is a 38-year-old male with a past medical history of daily alcohol abuse, chronic pancreatitis, anxiety with depression, cannabinoid use disorder, and nicotine dependence. Presented to the emergency department with a chief complaint of abdominal pain. Patient reports pain initially began 2 days ago and has progressively worsened. Patient reports initially he thought it was some indigestion because he has been drinking vodka instead of beer so he switched back to beer but reports pain persistently worsened and was consistent with previous episodes of acute pancreatitis so he came to the emergency department for evaluation. Patient reports experiencing severe left upper quadrant abdominal pain accompanied by nausea. He denies fevers, chills, diaphoresis, chest pain, palpitations, shortness of breath, episodes of vomiting, or experiencing any difficulties with or changes in his urinary or bowel function. Upon arrival to our facility, patient underwent evaluation in the emergency department. Vital signs upon arrival show blood pressure 146/90, heart rate 116, respiratory rate 18, temp 98.7 F, and SpO2 of 100% on room air. Labs completed and reviewed. CBC unremarkable. BMP showing high anion gap metabolic acidosis with chloride of 100, bicarb of 21, and anion gap of 14. Blood glucose 130. Magnesium 1.7. Liver profile showing transaminitis with AST of 130, ALT of 96, and alkaline phosphatase of 129. Lipase elevated at 600. Urinalysis negative for infection. Serum alcohol level 148. Patient admitted under our services for acute alcoholic pancreatitis and alcohol intoxication pending withdrawal. Review of systems: Pertinent positives and negatives as discussed in HPI, a complete review of systems was performed and all other systems are negative. Physical exam: Vital signs reviewed and stable. General: Nontoxic, no distress and appears stated age. Derm: Skin warm and dry, normal coloration for ethnicity. Head: Atraumatic, normocephalic and symmetric. Eyes: EOM's intact, no lid lag, and anicteric sclera Mouth: no lip lesions, mucus membranes moist Cardiovascular: regular rate and rhythm with normal S1S2, no murmur, positive posterior tibial pulses bilaterally, and cap refill < 2 seconds. Lungs: Respirations even, regular, and unlabored on room air. Lungs CTA bilaterally, no rhonchi, no rales, no wheezing, and no accessory muscle usage. Abdominal: soft, tenderness upon palpation to left upper quadrant, no guarding, no appreciable organomegaly Ext: ROM intact. No gross muscle atrophy, no edema, no contractures Neuro: Speech clear, face symmetrical and CN II-XII grossly intact with no noted focal neuro deficits Psych: Alert and oriented to person, place, time, and situation. Appropriate and pleasant affect. Assessment and Plan of Care: Acute alcoholic pancreatitis Alcohol intoxication impending withdraw in active alcoholic High anion gap metabolic acidosis Lactic acidosis Cannabinoid use disorder Transaminitis, secondary to daily alcohol abuse -Order placed for monitoring of CIWA scores and patient to be medicated with Ativan 0.5 mg every 4 hours as needed for CIWA score of 4-5, Ativan 1 mg every 4 hours for CIWA score of 6-7, Ativan 2 mg every 3 hours CIWA score of 8-9, and Ativan 2 mg every 2 hours forr CIWA score of 10 or greater. -Continuous IV hydration with lactated Ringer's at 125 cc/h. -Thiamine 100 mg daily, and Multivitamin daily, and Folate 1 mg daily -Seizure, fall, aspiration, and elopement precautions in place. -Continued close monitoring of electrolytes and replace as needed. -Telemetry monitoring. -Continue symptomatic care and pain management with Toradol 15 mg IVP every 6 hours as needed for mild to moderate pain and Dilaudid 0.5 mg every 3 hours as needed for severe pain. -Clear liquid diet. Data and imaging reviewed: As stated above in HPI The patient is admitted with an anticipated greater than 2 midnight stay for evaluation of alcoholic pancreatitis. CODE STATUS: Full code DVT prophylaxis: Lovenox Anticipated discharge date: Pending clinical course Anticipated discharge place: Home Patient was seen independently by Nurse Practitioner. This document was prepared using [employer] dictation software. Please allow for errors in do all operator while rare they do occur. Felipe Anderson NP rendered care for this patient independently, reviewed the findings and plan as documented in the note above and agree with plan. I did not physically speak with or examine the patient on this date. Past Medical History Past Medical History: Diabetes Mellitus, Hypertension Additional Past Medical History / Comment(s): pancreatitis History of Any Multi-Drug Resistant Organisms: None Reported Past Surgical History: No Surgical Hx Reported Past Anesthesia/Blood Transfusion Reactions: No Reported Reaction Past Psychological History: Anxiety, Depression Smoking Status: Current every day smoker, Vaper Past Alcohol Use History: Daily, Heavy Past Drug Use History: Marijuana - Past Family History Father Family Medical History: Hypertension Medications and Allergies Home Medications Medication Instructions Recorded Confirmed Type metFORMIN HCL [Glucophage] 500 mg PO BID 30 Days #60 tab 06/14/23 04/18/24 Rx Cinnamon Bark [Cinnamon] 1,000 mg PO DAILY 04/18/24 04/18/24 History amLODIPine [Norvasc] 5 mg PO DAILY 04/18/24 04/18/24 History Allergies Allergy/AdvReac Type Severity Reaction Status Date / Time No Known Allergies Allergy Verified 04/18/24 16:33 Physical Exam Vitals: Vital Signs Temp Pulse Resp BP Pulse Ox 04/18/24 12:27 98.7 F 116 H 18 146/90 100 Intake and Output 04/18/24 04/18/24 04/18/24 06:59 14:59 22:59 Other: Weight 68.039 kg Results CBC & Chem 7: 04/18/24 13:13 04/18/24 13:13 Labs: Abnormal Lab Results - Last 24 Hours (Table) 04/18/24 04/18/24 04/18/24 Range/Units 13:13 13:13 13:13 Sodium 135 L (137-145) mmol/L Carbon Dioxide 21 L (22-30) mmol/L BUN 4 L (9-20) mg/dL Glucose 130 H (74-99) mg/dL Plasma Lactic Acid Ruddy 2.9 H* (0.7-2.0) mmol/L Calcium 10.8 H (8.4-10.2) mg/dL AST 130 H (17-59) U/L ALT 96 H (4-49) U/L Alkaline Phosphatase 129 H (38-126) U/L Albumin 5.1 H (3.5-5.0) g/dL Lipase 600 H (23-300) U/L Urine Protein Trace H (Negative)
[2024-04-18] MEDS: LACTATED RINGERS 1,000 ML IV SCH (18:26)
[2024-04-18] MEDS: HYDROmorphone 0.5 MG/0.5 ML SYRINGE IVP PRN (20:05)
[2024-04-18] MEDS: KETOROLAC 15 MG/ML 1 ML VIAL IVP PRN (21:12)
[2024-04-18 21:58] LABS: Glucose,Whole Blood 95 mg/dL (70-110)
[2024-04-18] MEDS: NICOTINE 7MG/24HR PATCH TRANSDERM SCH (23:56)
[2024-04-19] MEDS: ONDANSETRON 4 MG/2 ML VIAL IVP PRN (04:40)
[2024-04-19] MEDS: THIAMINE 100 MG TAB PO SCH (07:44)
[2024-04-19] MEDS: ENOXAPARIN 40 MG/0.4 ML SYRINGE SQ SCH (07:44)
[2024-04-19] MEDS: FOLIC ACID 1 MG TAB PO SCH (07:44)
[2024-04-19] MEDS: MULTIVITAMINS, THERA 1 EACH TAB PO SCH (07:44)
[2024-04-19] MEDS: PANTOPRAZOLE 40 MG/10 ML VIAL IV SCH (07:45)
[2024-04-19 08:47] LABS: Basophils # (A) 0.08 X 10*3/uL (0.00-0.10); Basophils % (A) 1.1 %; Eosinophils # (A) 0.21 X 10*3/uL (0.04-0.35); Eosinophils % (A) 2.9 %; HCT 44.3 % (39.6-50.0); HGB 14.7 g/dL (13.0-17.0); Lymphocytes # (A) 1.74 X 10*3/uL (0.90-5.00); Lymphocytes % (A) 23.9 %; MCH 28.8 pg (27.0-32.0); MCHC 33.2 g/dL (32.0-37.0); MCV 86.9 FL (80.0-97.0); Mean Platelet Volume 12.5 FL (9.5-12.2); Monocytes # (A) 0.74 X 10*3/uL (0.20-1.00); Monocytes % (A) 10.2 %; NRBC Per 100 WBC 0 X 10*3/uL (0.00-0.01); Neutrophils # (A) 4.47 X 10*3/uL (1.80-7.70); Neutrophils % (A) 61.5 %; Platelet Count 146 X 10*3/uL (140-440); RDW 12.8 % (11.5-14.5); WBC 7.27 X 10*3/uL (4.50-10.00)
[2024-04-19 09:27] LABS: ALT 61 U/L (10-49); AST 56 U/L (14-35); Albumin 3.8 g/dL (3.8-4.9); Albumin/Globulin Ratio 2.11 Ratio (1.60-3.17); Alkaline Phosphatase 83 U/L (41-126); BUN/Creat Ratio 6.43 Ratio (12.00-20.00); Blood Urea Nitrogen 4.5 mg/dL (9.0-27.0); Calcium 9.2 mg/dL (8.7-10.3); Carbon Dioxide 21.1 mmol/L (21.6-31.8); Chloride 103 mmol/L (96-109); Globulin 1.8 g/dL (1.6-3.3); Glucose 103 mg/dL (70-110); Lipase 85 U/L (14-60); Magnesium 1.4 mg/dL (1.5-2.4); Potassium 4.4 mmol/L (3.5-5.5); Sodium 137 mmol/L (135-145); Total Bilirubin 0.7 mg/dL (0.3-1.2); Total Protein 5.6 g/dL (6.2-8.2)
[2024-04-19] MEDS ORDERED: DEXTROSE 50% SYRINGE 50 ML IVP PRN ×2 (12:01)
[2024-04-19] MEDS: MAGNESIUM SULFATE-D5W PMX 1 GM in DEXTROSE/WATER 1 100ML.BAG IVPB SCH (12:05)
[2024-04-19] MEDS: MAG HYDROX/AL HYDROX/SIMETH 30 ML, HYOSCYAMINE ELIXIR 10 ML, LIDOCAINE VISCOUS 2% 10 ML PO ONE (12:06)
[2024-04-19] MEDS: PROCHLORPERAZINE INJ 10 MG/2 ML VIAL IVP PRN (12:06)
[2024-04-19 12:19] LABS: Glucose,Whole Blood 89 mg/dL (70-110)
[2024-04-19] MEDS: INSULIN ASPART (NovoLOG) 100 UNIT/ML VIAL SQ SCH (12:21)
--- NOTE | 2024-04-19 13:19 | P.PN ---
Subjective Progress Note Date: 04/19/24 Hospital Course: Patient is a 38-year-old male with a past medical history of daily alcohol abuse, chronic pancreatitis, hypertension, type II [id number]-[id number] diabetes mellitus, anxiety with depression, cannabinoid use disorder, and redd otine dependence. Presented to the emergency department with a chief complaint of abdominal pain. Patient reports pain initially began 2 days ago and has progressively worsened. Patient reports initially he thought it was some indigestion because he has been drinking vodka instead of beer so he switched back to beer but reports pain persistently worsened and was consistent with previous episodes of acute pancreatitis so he came to the emergency department for evaluation. Patient reports experiencing severe left upper quadrant abdominal pain accompanied by nausea. He denies fevers, chills, diaphoresis, chest pain, palpitations, shortness of breath, episodes of vomiting, or experiencing any difficulties with or changes in his urinary or bowel function. Upon arrival to our facility, patient underwent evaluation in the emergency department. Vital signs upon arrival show blood pressure 146/90, heart rate 116, respiratory rate 18, temp 98.7 F, and SpO2 of 100% on room air. Labs comp leted and reviewed. CBC unremarkable. BMP showing high anion gap metabolic acidosis with chloride of 100, bicarb of 21, and anion gap of 14. Blood glucose 130. Magnesium 1.7. Liver profile showing transaminitis with AST of 130, ALT of 96, and alkaline phosphatase of 129. Lipase elevated at 600. Urinalysis negative for infection. Serum alcohol level 148. Patient admitted under our services for acute alcoholic pancreatitis and alcohol intoxication pending withdrawal. Physical exam: Patient was seen and fully evaluated at bedside this morning. He reports improved but continued pain to left upper quadrant and epigastric region and persistent uncontrolled nausea. Patient has orders for clear liquid diet but states has not been tolerating due to nausea so he is only had a few sips of fluids. Will place additional orders for antiemetics and patient may be continued on clear liquid diet as he tolerates. Discussed with patient will hold off on advancing diet until pain and nausea has improved. Vital signs reviewed and stable. General: Nontoxic, no distress and appears stated age. Derm: Skin warm and dry, normal coloration for ethnicity. Head: Atraumatic, normocephalic and symmetric. Eyes: EOM's intact, no lid lag, and anicteric sclera Mouth: no lip lesions, mucus membranes moist Cardiovascular: regular rate and rhythm with normal S1S2, no murmur, positive posterior tibial pulses bilaterally, and cap refill < 2 seconds. Lungs: Respirations even, regular, and unlabored on room air. Lungs CTA bilaterally, no rhonchi, no rales, no wheezing, and no accessory muscle usage. Abdominal: soft, tenderness upon palpation to left upper quadrant and epigastric region, no guarding, no appreciable organomegaly Ext: ROM intact. No gross muscle atrophy, no edema, no contractures Neuro: Speech clear, face symmetrical and CN II-XII grossly intact with no noted focal neuro deficits Psych: Alert and oriented to person, place, time, and situation. Appropriate and pleasant affect. Assessment and Plan of Care: Acute alcoholic pancreatitis Alcohol withdraw in active alcoholic Alcohol intoxication upon arrival High anion gap metabolic acidosis Cannabinoid use disorder Transaminitis, secondary to daily alcohol abuse -Continue monitoring of CIWA scores and patient to be medicated with Ativan 0.5 mg every 4 hours as needed for CIWA score of 4-5, Ativan 1 mg every 4 hours for CIWA score of 6-7, Ativan 2 mg every 3 hours CIWA score of 8-9, and Ativan 2 mg every 2 hours forr CIWA score of 10 or greater. -Continuous IV hydration with lactated Ringer's at decreased rate of 100 cc/h for an additional 24 hours then discontinue. -Thiamine 100 mg daily, and Multivitamin daily, and Folate 1 mg daily -Seizure, fall, aspiration, and elopement precautions in place. -Continued close monitoring of electrolytes and replace as needed. -Telemetry monitoring. -Continue symptomatic care and pain management with Toradol 15 mg IVP every 6 hours as needed for mild to moderate pain and Dilaudid 0.5 mg every 3 hours as needed for severe pain. -Patient has been receiving Zofran 4 mg IVP every 8 hours for nausea but reports continued uncontrolled nausea and order placed for Compazine 10 mg IVP every 6 hours at this time. -Continue clear liquid diet, will attempt to advance once nausea and pain is improved. Hypomagnesemia -Magnesium 1.4. Orders placed for magnesium sulfate 3 g IVPB. -Will continue to monitor closely with repeat a.m. labs and replace any abnormal electrolyte values as indicated based upon these findings. Lactic acidosis -Resolved with IV fluid hydration. Hypertension -Monitor vital signs and continue amlodipine 5 mg daily. Type II [id number] diabetes mellitus -Hold metformin and placed patient on glycemic protocol with NovoLog sliding scale. Data and imaging reviewed: Morning labs completed and reviewed. CBC showing no significant abn ormalities. BMP showing continued but improving high anion gap metabolic acidosis with chloride of 103, bicarb of 21.1, and anion gap of 12.90. Blood glucose 89. Magnesium was low at 1.4. Transaminitis improving with AST of 56, ALT of 61, and alkaline phosphatase of 83. Vital signs reviewed. Blood pressure 144/79, heart rate 61, respiratory rate 16, temp 98.2 F, and SpO2 of 98% on room air. CODE STATUS: Full code DVT prophylaxis: Lovenox Anticipated discharge date: Pending clinical course Anticipated discharge place: Home Patient was seen independently by Nurse Practitioner. This document was prepared using [employer] dictation software. Please allow for errors in vegetable specker while rare they do occur. Felipe Anderson NP rendered care for this patient independently, reviewed the findi ngs and plan as documented in the note above and agree with plan. I did not physically speak with or examine the patient on this date. Objective - Vital Signs Vital signs: Vital Signs Temp 98.2 F 04/19/24 07:00 Pulse 61 04/19/24 07:00 Resp 16 04/19/24 07:00 BP 144/79 04/19/24 07:00 Pulse Ox 98 04/19/24 07:00 FiO2 Intake & Output 04/18/24 04/19/24 04/19/24 18:59 06:59 18:59 Weight 68.039 kg 68.039 kg Other: # Voids 2 - Labs CBC & Chem 7: 04/19/24 04:23 04/19/24 04:23 Labs: Abnormal Lab Results - Last 24 Hours (Table) 04/18/24 04/18/24 04/18/24 Range/Units 13:13 13:13 13:13 MPV (9.5-12.2) FL Sodium 135 L (137-145) mmol/L Carbon Dioxide 21 L (22-30) mmol/L BUN 4 L (9-20) mg/dL Glucose 130 H (74-99) mg/dL Plasma Lactic Acid Ruddy 2.9 H* (0.7-2.0) mmol/L Calcium 10.8 H (8.4-10.2) mg/dL AST 130 H (17-59) U/L ALT 96 H (4-49) U/L Alkaline Phosphatase 129 H (38-126) U/L Albumin 5.1 H (3.5-5.0) g/dL Lipase 600 H (23-300) U/L Urine Protein Trace H (Negative) 04/18/24 04/19/24 Range/Units 17:05 04:23 MPV 12.5 H (9.5-12.2) FL Sodium (137-145) mmol/L Carbon Dioxide (22-30) mmol/L BUN (9-20) mg/dL Glucose (74-99) mg/dL Plasma Lactic Acid Ruddy 2.3 H* (0.7-2.0) mmol/L Calcium (8.4-10.2) mg/dL AST (17-59) U/L ALT (4-49) U/L Alkaline Phosphatase (38-126) U/L Albumin (3.5-5.0) g/dL Lipase (23-300) U/L Urine Protein (Negative)
[2024-04-19] MEDS: amLODIPine 5 MG TAB PO SCH (13:30)
[2024-04-19 17:26] LABS: Glucose,Whole Blood 153 mg/dL (70-110)
[2024-04-19 20:27] LABS: Glucose,Whole Blood 112 mg/dL (70-110)
[2024-04-20 05:55] LABS: Glucose,Whole Blood 119 mg/dL (70-110)
[2024-04-20 12:00] LABS: Glucose,Whole Blood 98 mg/dL (70-110)
[2024-04-20 14:21] VITALS: BP 145/88; PULSE 84; RESP 17; TEMP 98.3
[2024-04-20 17:10] LABS: Glucose,Whole Blood 142 mg/dL (70-110)
--- NOTE | 2024-04-20 18:11 | P.DS ---
Providers Date of admission: 04/18/24 16:21 Expected date of discharge: 04/20/24 Attending physician: Geoff Barron MD Primary care physician: Stated None Hospital Course: Discharge Diagnosis: Acute alcoholic pancreatitis Alcohol withdraw in active alcoholic Alcohol intoxication upon arrival High anion gap metabolic acidosis Cannabinoid use disorder Transaminitis, secondary to daily alcohol abuse Hypomagnesemia. Replaced. Lactic acidosis. Resolved with IV fluid hydration. Hypertension. Monitor vital signs and continue amlodipine 5 mg daily. Type II [id number]-evbtkzmjh diabetes mellitus. Resume metformin on discharge. Hospital Course: Patient is a 38-year-old male with a past medical history of daily alcohol abuse, chronic pancreatitis, hypertension, type II xgf-vvuygny-mwzpllzym diabetes mellitus, anxiety with depression, cannabinoid use disorder, and nicotine dependence. Presented to the emergency department with a chief complaint of abdominal pain. Patient reports pain initially began 2 days ago and has progressively worsened. Patient reports initially he thought it was some indigestion because he has been drinking vodka instead of beer so he switched back to beer but reports pain persistently worsened and was consistent with previous episodes of acute pancreatitis so he came to the emergency department for evaluation. Patient reports experiencing severe left upper quadrant abdominal pain accompanied by nausea. He denies fevers, chills, diaphoresis, chest pain, palpitations, shortness of breath, episodes of vomiting, or experiencing any difficulties with or changes in his urinary or bowel function. Upon arrival to our facility, patient underwent evaluation in the emergency department. Vital signs upon arrival show blood pressure 146/90, heart rate 116, respiratory rate 18, temp 98.7 F, and SpO2 of 100% on room air. Labs completed and reviewed. CBC unremarkable. BMP showing high anion gap metabolic acidosis with chloride of 100, bicarb of 21, and anion gap of 14. Blood glucose 130. Magnesium 1.7. Liver profile showing transaminitis with AST of 130, ALT of 96, and alkaline phosphatase of 129. Lipase elevated at 600. Urinalysis negative for infection. Serum alcohol level 148. Patient admitted under our services for acute alcoholic pancreatitis and alcohol intoxication p ending withdrawal. Patient was treated with aggressive IV fluid hydration, antiemetics, and pain medication. He was initially placed on bowel rest and diet slowly advanced. Patient is tolerating well with no episodes of nausea or vomiting and reports significant improvement of pain. Patient is medically optimized for discharge at this time and recommend cessation of any and all alcohol use. Patient to follow-up outpatient with PCP and contact information for local PCP (residency clinic) was provided on discharge. Physical exam: Vital signs reviewed and stable. General: Nontoxic, no distress and appears stated age. Derm: Skin warm and dry, normal coloration for ethnicity. Head: Atraumatic, normocephalic and symmetric. Eyes: EOM's intact, no lid lag, and anicteric sclera Mouth: no lip lesions, mucus membranes moist Cardiovascular: regular rate and rhythm with normal S1S2, no murmur, positive p osterior tibial pulses bilaterally, and cap refill < 2 seconds. Lungs: Respirations even, regular, and unlabored on room air. Lungs CTA bilaterally, no rhonchi, no rales, no wheezing, and no accessory muscle usage. Abdominal: soft, tenderness upon palpation to left upper quadrant and epigastric region, no guarding, no appreciable organomegaly Ext: ROM intact. No gross muscle atrophy, no edema, no contractures Neuro: Speech clear, face symmetrical and CN II-XII grossly intact with no noted focal neuro deficits Psych: Alert and oriented to person, place, time, and situation. Appropriate and pleasant affect. A total of 33 minutes of time were spent preparing this complex discharge summary. Pt was discharged on 04/20/2024 at 6:08 PM. Patient was seen independently by Nurse Practitioner. This document was prepared using [employer] dictation software. Please allow for errors in life insurance actuary while rare they do occur. Felipe Anderson NP rendered care for this patient independently, reviewed the findings and plan as documented in the note above. I did not physically speak with or examine the patient on this date. Patient Condition at Discharge: Stable Plan - Discharge Summary Discharge Rx Participant: No New Discharge Prescriptions: Continue metFORMIN HCL [Glucophage] 500 mg PO BID 30 Days #60 tab amLODIPine [Norvasc] 5 mg PO DAILY Cinnamon Bark [Cinnamon] 1,000 mg PO DAILY Discharge Medication List metFORMIN HCL [Glucophage] 500 mg PO BID 30 Days #60 tab 06/14/23 [Rx] Cinnamon Bark [Cinnamon] 1,000 mg PO DAILY 04/18/24 [History] amLODIPine [Norvasc] 5 mg PO DAILY 04/18/24 [History] Follow up Appointment(s)/Referral(s): [facility] [NON-STAFF] - 1-2 days Patient Instructions/Handouts: Pancreatitis (DC), Abuse of Alcohol (DC) Activity/Diet/Wound Care/Special Instructions: Activity: As tolerated. Diet: Low-fat diet Special Instructions: Take all of your medications as directed and remember to keep all of your doctor's appointments and follow-up as needed. Highly recommend refraining from any and all alcohol use. As we discussed continued use of alcohol places you at higher risk for recurrent episodes of alcoholic pancreatitis. Thank you for allowing us to participate in your care, it was truly a pleasure having you for our patient!!! Discharge/Stand Alone Forms: AA Meetings [address] - [facility], AA Meetings [facility], Outpatient Counseling, Inp Substance Abuse Facilities, Personal On Site Nurse Discharge Disposition: HOME SELF-CARE
== END 2024-04-20 19:17 | disposition home or self-care (01) ==
LOC: EC 12:07 → 6NMEDSUR 16:21
PROVIDERS: ADMIT Internal Medicine; ATTEND Internal Medicine
DX: K85.20 Alcohol induced acute pancreatitis without necrosis or infection (principal); F10.239 Alcohol dependence with withdrawal, unspecified; F10.229 Alcohol dependence with intoxication, unspecified; E83.42 Hypomagnesemia; E87.20 Acidosis, unspecified; K86.0 Alcohol-induced chronic pancreatitis; I10 Essential (primary) hypertension; F17.290 Nicotine dependence, other tobacco product, uncomplicated; F32.A Depression, unspecified; F41.9 Anxiety disorder, unspecified; F12.10 Cannabis abuse, uncomplicated; R74.01 Elevation of levels of liver transaminase levels; R74.8 Abnormal levels of other serum enzymes; Y90.6 Blood alcohol level of 120-199 mg/100 ml; Z79.4 Long term (current) use of insulin; Z79.84 Long term (current) use of oral hypoglycemic drugs; Z79.899 Other long term (current) drug therapy
CPT/HCPCS: 96376 ×3; 96361 ×2; 96365; 96366; 96372 ×2; 96375 ×2; 99284; 36415; 80053 ×2; 83605; 83690 ×2; 83735 ×2; 85025 ×2; 81003; 80320; G0378 ×3; S4990 ×3; J0780 ×2; J2405 ×3; J1650 ×2; J3475; J1885; J1171 ×3; J2470 ×2

== ENCOUNTER 2024-08-03 23:33 | Emergency (ER) | payer BC ==
[2024-08-03 23:45] VITALS: RESP 16; TEMP 98.7
--- NOTE | 2024-08-03 23:58 | ED ---
Abdominal Pain HPI - General Chief Complaint: Abdominal Pain Stated Complaint: Abdominal Pain Time Seen by Provider: 08/03/24 23:46 Source: patient, EMS Mode of arrival: EMS Limitations: no limitations - History of Present Illness Initial Comments: 38-year-old male presenting with chief complaint of abdominal pain. Patient has history of alcohol use disorder and chronic pancreatitis. Patient normally drinks 4 tall beers and 1 double shot per day, last drink was earlier today. He reports that for the last 8 days or so he has been having a flareup of epigastric pain that he believes is due to his chronic pancreatitis. He admits to nausea and vomiting. No hematemesis. No hematochezia or melena. States that the pain does radiate up into the lower chest. No difficulty breathing. No URI-like symptoms. No urinary symptoms. Patient does smoke cigarettes and vape. - Related Data Home Medications Medication Instructions Recorded Confirmed Cinnamon Bark [Cinnamon] 1,000 mg PO DAILY 04/18/24 04/18/24 amLODIPine [Norvasc] 5 mg PO DAILY 04/18/24 04/18/24 Previous Rx's Medication Instructions Recorded metFORMIN HCL [Glucophage] 500 mg PO BID 30 Days #60 tab 06/14/23 Allergies Allergy/AdvReac Type Severity Reaction Status Date / Time No Known Allergies Allergy Verified 04/18/24 16:33 Review of Systems ROS Statement: Those systems with pertinent positive or pertinent negative responses have been documented in the HPI. ROS Other: All systems not noted in ROS Statement are negative. Past Medical History Past Medical History: Diabetes Mellitus, Hypertension Additional Past Medical History / Comment(s): pancreatitis History of Any Multi-Drug Resistant Organisms: None Reported Past Surgical History: No Surgical Hx Reported Past Anesthesia/Blood Transfusion Reactions: No Reported Reaction Past Psychological History: Anxiety, Depression Smoking Status: Current every day smoker, Vaper Past Alcohol Use History: Daily, Heavy Past Drug Use History: Cocaine, Marijuana - Past Family History Father Family Medical History: Hypertension General Exam Limitations: no limitations General appearance: alert, in no apparent distress, appears intoxicated Head exam: Present: atraumatic, normocephalic, normal inspection Eye exam: Present: normal appearance, EOMI Neck exam: Present: normal inspection. Absent: meningismus Respiratory exam: Present: normal lung sounds bilaterally. Absent: respiratory distress, wheezes, rales, rhonchi, stridor Cardiovascular Exam: Present: normal rhythm, tachycardia, normal heart sounds. Absent: systolic murmur, diastolic murmur, rubs, gallop, clicks GI/Abdominal exam: Present: soft. Absent: distended, tenderness, guarding, rebound, rigid Neurological exam: Present: alert, oriented X3 Psychiatric exam: Present: normal affect, normal mood Skin exam: Present: warm, dry, normal color Course Vital Signs 08/03/24 08/03/24 08/04/24 23:43 23:46 01:50 Temperature 98.7 F 98.7 F Pulse Rate 122 H 115 H 98 Respiratory 16 16 16 Rate Blood Pressure 150/104 123/92 O2 Sat by Pulse 96 97 100 Oximetry Medical Decision Making - Medical Decision Making Was pt. sent in by a medical professional or institution (, PA, [facility], urgent care, hospital, or [facility]...) When possible be specific @ -No Did you speak to anyone other than the patient for history (EMS, parent, family, police, friend...)? What history was obtained from this source @ -No Did you review nursing and triage notes (agree or disagree)? Why? @ -I reviewed and agree with nursing and triage notes Were old charts reviewed (outside hosp., previous admission, EMS record, old EKG, old radiological studies, urgent care reports/EKG's, [facility] records)? Report findings @ -No old charts were reviewed Differential Diagnosis (chest pain, altered mental status, abdominal pain women, abdominal pain men, vaginal bleeding, weakness, fever, dyspnea, syncope, headache, dizziness, GI bleed, back pain, seizure, CVA, palpatations, mental health, musculoskeletal)? @ -MDM Differential Abdominal Pain Men: Appendicitis, cholecystitis, diverticulosis, ischemic bowel, pancreatitis, hepatitis, UTI, gastroenteritis, AAA, incarcerated hernia, bowel obstruction, constipation, inflammatory bowel, hepatitis, peptic ulcer disease, splenic infarction, perforated viscus, testicular torsion... This is not meant to be an all-inclusive list EKG interpreted by me (3pts min.). @ -EKG shows sinus tachycardia ventricular rate 114. DE interval 146. QRS 88. QT 307. QTc 375 X-rays interpreted by me (1pt min.). @ -None done CT interpreted by me (1pt min.). @ -None done U/S interpreted by me (1pt. min.). @ -None done What testing was considered but not performed or refused? (CT, X-rays, U/S, labs)? Why? @ -None What meds were considered but not given or refused? Why? @ -None Did you discuss the management of the patient with other professionals (pr ofessionals i.e. , PA, [facility], lab, RT, psych nurse, social worker delinquency prevention, side laster, teacher, vice squad police officer, casework manager)? Give summary @ -No Was smoking cessation discussed for >3mins.? @ -No Was critical care preformed (if so, how long)? @ -No Were there social determinants of health that impacted care today? How? (Homelessness, low income, unemployed, alcoholism, drug addiction, transportation, low edu. Level, literacy, decrease access to med. care, prison, rehab)? @ -Alcohol use disorder Was there de-escalation of care discussed even if they declined (Discuss DNR or withdrawal of care, Hospice)? DNR status @ -No What co-morbidities impacted this encounter? (DM, HTN, Smoking, COPD, CAD, Cancer, CVA, ARF, Chemo, Hep., AIDS, mental health diagnosis, sleep apnea, morbid obesity)? @ -Chronic pancreatitis Was patient admitted / discharged? Hospital course, mention meds given and route, prescriptions, significant lab abnormalities, going to OR and other pertinent info. @ -38-year-old male presenting with chief complaint of epigastric pain. Patient has history of alcohol use disorder and chronic pancreatitis, states that this feels like a chronic pancreatitis flareup. History and physical examination are conducted. No leukocytosis or anemia. Lipase is 655. Elevated AST ALT and alkaline phosphatase which is expected given his history of alcohol use disorder. Lactic acid 3.3., Patient is receiving IV fluids. On reassessment patient is resting comfortably. Pain is well-controlled. He is educated on today's findings. He will be discharged home, his will be coming to pick him up. Follow-up with PCP. Report back to ER with any new or worsening symptoms. Discussed return parameters and answered all questions. I discussed this case in detail with my attending Dr. Cabrera Undiagnosed new problem with uncertain prognosis? @ -No Drug Therapy requiring intensive monitoring for toxicity (Heparin, Nitro, Insulin, Cardizem)? @ -No Were any procedures done? @ -No Diagnosis/symptom? @ -Chronic pancreatitis Acute, or Chronic, or Acute on Chronic? @ -Acute on chronic Uncomplicated (without systemic symptoms) or Complicated (systemic symptoms)? @ -Uncomplicated Side effects of treatment? @ -No Exacerbation, Progression, or Severe Exacerbation? @ -No Poses a threat to life or bodily function? How? (Chest pain, [place], [place], pneumonia, PE, COPD, DKA, ARF, appy, cholecystitis, CVA, Diverticulitis, Homicidal, Suicidal, threat to staff... and all critical care pts) @ -Yes, symptoms are well-managed at this time and patient has received IV fluids - Lab Data Result diagrams: 08/04/24 00:09 08/04/24 00:09 Lab Results 08/04/24 08/04/24 08/04/24 Range/Units 00:09 00:09 00:09 WBC 9.6 (3.8-10.6) k/uL RBC 5.70 (4.30-5.90) m/uL Hgb 16.1 (13.0-17.5) gm/dL Hct 51.6 (39.0-53.0) % MCV 90.5 (80.0-100.0) fL MCH 28.2 (25.0-35.0) pg MCHC 31.2 (31.0-37.0) g/dL RDW 15.3 (11.5-15.5) % Plt Count 214 (150-450) k/uL MPV 8.8 Neutrophils % 41 % Lymphocytes % 49 % Monocytes % 5 % Eosinophils % 2 % Basophils % 2 % Neutrophils # 3.9 (1.3-7.7) k/uL Lymphocytes # 4.7 (1.0-4.8) k/uL Monocytes # 0.5 (0-1.0) k/uL Eosinophils # 0.2 (0-0.7) k/uL Basophils # 0.2 (0-0.2) k/uL Sodium 136 L (137-145) mmol/L Potassium 4.5 (3.5-5.1) mmol/L Chloride 100 (98-107) mmol/L Carbon Dioxide 21 L (22-30) mmol/L Anion Gap 15 mmol/L BUN 10 (9-20) mg/dL Creatinine 0.79 (0.66-1.25) mg/dL Est GFR (CKD-EPI)AfAm >90 (>60 ml/min/1.73 sqM) Est GFR (CKD-EPI)NonAf >90 (>60 ml/min/1.73 sqM) Glucose 154 H (74-99) mg/dL Lactic Ac Sepsis Rflx Plasma Lactic Acid Ruddy (0.7-2.0) mmol/L Calcium 10.1 (8.4-10.2) mg/dL Total Bilirubin 0.6 (0.2-1.3) mg/dL AST 167 H (17-59) U/L ALT 135 H (4-49) U/L Alkaline Phosphatase 139 H (38-126) U/L Troponin I (0.000-0.034) ng/mL Total Protein 7.5 (6.3-8.2) g/dL Albumin 4.9 (3.5-5.0) g/dL Amylase 52 (30-110) U/L Lipase 655 H (23-300) U/L Urine Color Colorless Urine Appearance Clear (Clear) Urine pH 5.5 (5.0-8.0) Ur Specific [place] 1.005 (1.001-1.035) Urine Protein Trace H (Negative) Urine Glucose (UA) Negative (Negative) Urine Ketones Negative (Negative) Urine Blood Negative (Negative) Urine Nitrite Negative (Negative) Urine Bilirubin Negative (Negative) Urine Urobilinogen <2.0 (<2.0) mg/dL Ur Leukocyte Esterase Negative (Negative) 08/04/24 08/04/24 08/04/24 Range/Units 00:09 00:09 00:53 WBC (3.8-10.6) k/uL RBC (4.30-5.90) m/uL Hgb (13.0-17.5) gm/dL Hct (39.0-53.0) % MCV (80.0-100.0) fL MCH (25.0-35.0) pg MCHC (31.0-37.0) g/dL RDW (11.5-15.5) % Plt Count (150-450) k/uL MPV Neutrophils % % Lymphocytes % % Monocytes % % Eosinophils % % Basophils % % Neutrophils # (1.3-7.7) k/uL Lymphocytes # (1.0-4.8) k/uL Monocytes # (0-1.0) k/uL Eosinophils # (0-0.7) k/uL Basophils # (0-0.2) k/uL Sodium (137-145) mmol/L Potassium (3.5-5.1) mmol/L Chloride (98-107) mmol/L Carbon Dioxide (22-30) mmol/L Anion Gap mmol/L BUN (9-20) mg/dL Creatinine (0.66-1.25) mg/dL Est GFR (CKD-EPI)AfAm (>60 ml/min/1.73 sqM) Est GFR (CKD-EPI)NonAf (>60 ml/min/1.73 sqM) Glucose (74-99) mg/dL Lactic Ac Sepsis Rflx Y Plasma Lactic Acid Ruddy 3.3 H* (0.7-2.0) mmol/L Calcium (8.4-10.2) mg/dL Total Bilirubin (0.2-1.3) mg/dL AST (17-59) U/L ALT (4-49) U/L Alkaline Phosphatase (38-126) U/L Troponin I <0.012 (0.000-0.034) ng/mL Total Protein (6.3-8.2) g/dL Albumin (3.5-5.0) g/dL Amylase (30-110) U/L Lipase (23-300) U/L Urine Color Urine Appearance (Clear) Urine pH (5.0-8.0) Ur Specific [place] (1.001-1.035) Urine Protein (Negative) Urine Glucose (UA) (Negative) Urine Ketones (Negative) Urine Blood (Negative) Urine Nitrite (Negative) Urine Bilirubin (Negative) Urine Urobilinogen (<2.0) mg/dL Ur Leukocyte Esterase (Negative) Disposition Clinical Impression: Chronic pancreatitis Disposition: HOME SELF-CARE Condition: Fair Instructions (If sedation given, give patient instructions): Pancreatitis (ED) Additional Instructions: Follow-up with your PCP. Report back to ER with any new or worsening symptoms. I advised that you stop drinking, this has many long-term health effects that can lead to organ failure and/or . I advised that you start rehab to help assist with stopping drinking Is patient prescribed a controlled substance at d/c from ED?: No Referrals: Franc Conway MD [Primary Care Provider] - 1-2 days Forms: AA Meetings [facility] Time of Disposition: 01:13
[2024-08-04 00:26] LABS: Basophils # (A) 0.2 k/uL (0-0.2); Basophils % (A) 2 %; Eosinophils # (A) 0.2 k/uL (0-0.7); Eosinophils % (A) 2 %; HCT 51.6 % (39.0-53.0); HGB 16.1 gm/dL (13.0-17.5); Lymphocytes # (A) 4.7 k/uL (1.0-4.8); Lymphocytes % (A) 49 %; MCH 28.2 pg (25.0-35.0); MCHC 31.2 g/dL (31.0-37.0); MCV 90.5 fL (80.0-100.0); Mean Platelet Volume 8.8; Monocytes # (A) 0.5 k/uL (0-1.0); Monocytes % (A) 5 %; Neutrophils # (A) 3.9 k/uL (1.3-7.7); Neutrophils % (A) 41 %; Platelet Count 214 k/uL (150-450); RDW 15.3 % (11.5-15.5); WBC 9.6 k/uL (3.8-10.6)
[2024-08-04 00:27] LABS: Appearance,Urine Clear (Clear); Bilirubin,Urine Negative (Negative); Blood,Urine Negative (Negative); Color,Urine Colorless; Glucose,Urine (UA) Negative (Negative); Ketones,Urine Negative (Negative); Leukocyte Esterase,Urine Negative (Negative); Nitrite,Urine Negative (Negative); PH, Urine 5.5 (5.0-8.0); Protein,Urine Trace (Negative); Specific Gravity,Urine 1.005 (1.001-1.035); Urobilinogen,Urine <2.0 mg/dL (<2.0)
[2024-08-04] MEDS: MORPHINE SULFATE 4 MG/ML SYRINGE IVP STA (00:29)
[2024-08-04] MEDS: ONDANSETRON 4 MG/2 ML VIAL IVP STA (00:29)
[2024-08-04] MEDS: SODIUM CHLORIDE 0.9% 1,000 ML IV SCH (00:30)
[2024-08-04 00:48] LABS: ALT 135 U/L (4-49); AST 167 U/L (17-59); African American GFR (CKD) >90 (>60 ml/min/1.73 sqM); Albumin 4.9 g/dL (3.5-5.0); Alkaline Phosphatase 139 U/L (38-126); Amylase 52 U/L (30-110); Anion Gap 15 mmol/L; Blood Urea Nitrogen 10 mg/dL (9-20); Calcium 10.1 mg/dL (8.4-10.2); Carbon Dioxide 21 mmol/L (22-30); Chloride 100 mmol/L (98-107); Glucose 154 mg/dL (74-99); Lipase 655 U/L (23-300); Non-African American GFR(CKD) >90 (>60 ml/min/1.73 sqM); Potassium 4.5 mmol/L (3.5-5.1); Sodium 136 mmol/L (137-145); Total Bilirubin 0.6 mg/dL (0.2-1.3); Total Protein 7.5 g/dL (6.3-8.2)
[2024-08-04 01:52] VITALS: BP 123/92; PULSE 98
== END 2024-08-04 01:51 | disposition home or self-care (01) ==
LOC: EC 23:33
DX: K86.1 Other chronic pancreatitis (principal); F17.290 Nicotine dependence, other tobacco product, uncomplicated
CPT/HCPCS: 36415; 93005; 80053; 82150; 83605; 83690; 84484; 85025; 81003; 99284; 96374; 96375; 96361; J2270; J2405